=== PATIENT | female | born 1935 | race Caucasian/White ===

== ENCOUNTER 2020-12-04 15:07 | Outpatient (REF) | payer MEDICARE, SELFPAY ==
[2020-12-04 18:04] LABS: Estimated Average Glucose 91 mg/dL; Hemoglobin A1c % 4.8 %
[2020-12-04 18:09] LABS: Hemoglobin 12.4 g/dl (12.0-16.0); Mean Corpuscular HGB Conc 32.6 g/dl (31.0-35.0); Mean Corpuscular Hemoglobin 30.7 pg (27.0-33.0); Mean Corpuscular Volume 94.1 fL (80-98); Mean Platelet Volume 12.1 fL (9.4-12.3); Platelet Count 201 X10*3/uL (160-400); Red Blood Count 4.04 X10*6/uL (4.20-5.50); Red Cell Distribution Width 13.5 % (11.0-16.0); White Blood Count 6.8 X10*3/uL (4.8-10.8)
[2020-12-04 18:16] LABS: Alanine Aminotransferase 10 U/L (0-31); Albumin Level 4.1 g/dL (3.5-5.0); Alkaline Phosphatase 78 U/L (39-117); Anion Gap 10 (12-20); Aspartate Amino Transferase 15 U/L (5-31); Bilirubin Total 0.4 mg/dL (0.0-1.0); Blood Urea Nitrogen 14 mg/dL (9-16); Calcium 9.1 mg/dL (8.4-10.2); Carbon Dioxide 32 mmol/L (22-29); Chloride 105 mmol/L (96-108); Estimated Glomerular Filt Rate > 60; Glucose Random 91 mg/dL (60-115); Potassium 3.9 mmol/l (3.3-5.1); Sodium 143 mmol/L (135-145); Total Protein 6.4 g/dL (6.5-8.0)
== END 2020-12-04 15:08 | disposition home or self-care (01) ==
LOC: HO.MANLDS 15:07
PROVIDERS: PCP Internal Medicine; Visit Provider Internal Medicine
DX: I10 Essential (primary) hypertension (principal); R73.01 Impaired fasting glucose
CPT/HCPCS: 36415; 80053; 83036; 85027

== ENCOUNTER 2021-06-28 11:03 | Outpatient (REF) | payer MEDICARE, SELFPAY ==
[2021-06-28 12:45] LABS: Hematocrit 39.7 % (37-47); Hemoglobin 12.9 g/dl (12.0-16.0); Mean Corpuscular HGB Conc 32.5 g/dl (31.0-35.0); Mean Corpuscular Hemoglobin 30.4 pg (27.0-33.0); Mean Corpuscular Volume 93.4 fL (80-98); Mean Platelet Volume 11.5 fL (9.4-12.3); Platelet Count 238 X10*3/uL (160-400); Red Blood Count 4.25 X10*6/uL (4.20-5.50); Red Cell Distribution Width 13.6 % (11.0-16.0); White Blood Count 7.6 X10*3/uL (4.8-10.8)
[2021-06-28 13:09] LABS: Alanine Aminotransferase 11 U/L (0-31); Albumin Level 4.3 g/dL (3.5-5.0); Alkaline Phosphatase 84 U/L (39-117); Anion Gap 11 (12-20); Aspartate Amino Transferase 17 U/L (5-31); Bilirubin Total 0.6 mg/dL (0.0-1.0); Blood Urea Nitrogen 17 mg/dL (9-16); Calcium 9.8 mg/dL (8.4-10.2); Carbon Dioxide 30 mmol/L (22-29); Chloride 104 mmol/L (96-108); Estimated Glomerular Filt Rate > 60; Glucose Random 93 mg/dL (60-115); Potassium 4.2 mmol/L (3.3-5.1); Sodium 141 mmol/L (135-145); Total Protein 6.8 g/dL (6.5-8.0)
[2021-06-28 13:30] LABS: Thyroid Stimulating Hormone 1.78 uIU/mL (0.32-4.0); Vitamin D 25-OH Total 45.8 ng/mL (>30)
== END 2021-06-28 11:04 | disposition home or self-care (01) ==
LOC: HO.MANLDS 11:03
PROVIDERS: PCP Internal Medicine; Visit Provider Internal Medicine
DX: I10 Essential (primary) hypertension (principal)
CPT/HCPCS: 36415; 80053; 82306; 84443; 85027

== ENCOUNTER 2022-02-11 14:07 | Outpatient (REF) | payer MEDICARE, SELFPAY ==
[2022-02-11 18:16] LABS: Hematocrit 38.7 % (37.0-47.0); Hemoglobin 12.6 g/dl (12.0-16.0); Mean Corpuscular HGB Conc 32.6 g/dl (31.0-35.0); Mean Corpuscular Hemoglobin 30.1 pg (27.0-33.0); Mean Corpuscular Volume 92.6 fL (80.0-98.0); Mean Platelet Volume 11.9 fL (9.4-12.3); Platelet Count 266 X10*3/uL (160-400); Red Blood Count 4.18 X10*6/uL (4.20-5.50); Red Cell Distribution Width 13.5 % (11.0-16.0); White Blood Count 7.2 X10*3/uL (4.8-10.8)
[2022-02-11 18:34] LABS: Alanine Aminotransferase 14 U/L (0-31); Albumin Level 3.9 g/dL (3.5-5.0); Alkaline Phosphatase 72 U/L (39-117); Anion Gap 12 (12-20); Aspartate Amino Transferase 16 U/L (5-31); Bilirubin Total 0.5 mg/dL (0.0-1.0); Blood Urea Nitrogen 19 mg/dL (9-16); Calcium 9.3 mg/dL (8.4-10.2); Carbon Dioxide 29 mmol/L (22-29); Chloride 106 mmol/L (96-108); Estimated Glomerular Filt Rate > 60; Glucose Random 120 mg/dL (60-115); Potassium 4.4 mmol/L (3.3-5.1); Sodium 143 mmol/L (135-145); Total Protein 6.2 g/dL (6.5-8.0)
[2022-02-11 18:59] LABS: Thyroid Stimulating Hormone 1.68 uIU/mL (0.32-4.0)
[2022-02-13 14:20] LABS: Vitamin D 25-OH Total 52.4 ng/mL (>30)
== END 2022-02-11 14:08 | disposition home or self-care (01) ==
LOC: HO.MANLDS 14:07
PROVIDERS: PCP Internal Medicine; Visit Provider Internal Medicine
DX: I10 Essential (primary) hypertension (principal)
CPT/HCPCS: 36415; 80053; 82306; 84443; 85027

== ENCOUNTER 2022-07-23 13:00 | Outpatient (REF) | payer MEDICARE, SELFPAY ==
--- NOTE | ~2022-07-23 | XR_ITS ---
EXAMINATION: XR CHEST CLINICAL INFORMATION: Shortness of breath COMPARISON: None TECHNIQUE: 2 views of the chest were obtained. FINDINGS: Moderate cardiomegaly. Changes of congestive heart failure and interstitial pulmonary edema with moderate bilateral pleural effusions. No major zones of airspace disease grossly. No ectopic air. Biapical pleural thickening. No acute osseous abnormality. XR/XR chest 2V IMPRESSION: High-grade interstitial pulmonary edema as above.
== END 2022-07-23 13:01 | disposition home or self-care (01) ==
LOC: HO.XRAY 13:00
PROVIDERS: PCP Internal Medicine; Visit Provider Physician Assistant
DX: R06.02 Shortness of breath (principal)
CPT/HCPCS: 71046

== ENCOUNTER → 2022-08-15 08:55 | Outpatient (REF) | payer MEDICARE, SELFPAY ==
--- NOTE | 2022-08-15 09:01 | CA_ITS ---
Transthoracic Echocardiogram Patient (Last, First, Middle): Fauzia Roberto M Gender: Female Date of : 1935 Age: 87 Procedure Date: 08/15/2022 Procedure Type: Transthoracic Echocardiogram Location: OP Height: 167.64 cm Weight: 61.24 kg BSA: 1.69 m2 Heart Rate: 76 bpm BP: 125 / 60 mmHg Animal Eviscerator: ENRRIQUE Referring MD: Connie HYDE Symptoms: AFIB Study Quality: Adequate ECG Rhythm: Atrial Fibrillation Conclusions: - The left ventricular systolic function is moderately decreased. The visually estimated ejection fraction is between 30-35%. - There is moderately decreased right ventricular systolic function. - The left atrium is moderately dilated. - There is mild calcification of the aortic valve. - There is moderate mitral valve regurgitation. - Mild pulmonary hypertension is present. Findings Left Ventricle Mildly increased left ventricular cavity size. There is normal left ventricular wall thickness. The left ventricular systolic function is moderately decreased. The visually estimated ejection fraction is between 30 35%. There is moderate global hypokinesis. Diastolic function is indeterminate on the basis of available data. Right Ventricle Normal right ventricular cavity size. There is moderately decreased right ventricular systolic function. Atria The left atrium is moderately dilated. The right atrium is normal in size. Aortic Valve There is a normal trileaflet aortic valve. There is mild calcification of the aortic valve. There is no aortic valve stenosis. There is no aortic valve regurgitation. Mitral Valve There is mild anterior and posterior mitral leaflet thickening. There is mild mitral annular calcification. There is moderate mitral valve regurgitation. There is no mitral valve stenosis. Pulmonic Valve The pulmonic valve is likely normal. Tricuspid Valve Normal tricuspid valve structure. There is trace tricuspid valve regurgitation. Mild pulmonary hypertension is present. Great Vessels The asc aorta is normal in size. Venous The inferior vena cava is mildly dilated and collapses less than 50% with inspiration. Pericardium/Pleural There is a trivial pericardial effusion. Prior Study Comparison No prior study available for comparison. Measurements 2D Linear Measurements IVSd: 0.73 0.6-0.9/0.6-1.0 cm LVIDd: 5.54 3.9-5.3/4.2-5.9 cm LVIDd Index: 3.28 2.4-3.2/2.2-3.1 cm/m2 LVIDs: 3.99 2.0-3.6 cm LVPWd: 0.98 0.7-1.1 cm LA Diam: 4.20 2.7-3.8/3.0-4.0 cm LAIDs Index: 2.49 1.5-2.3 cm/m2 LV Mass: 219.00 67-162/88-224 g LV Mass Index: 129.58 43-95/49-115 g/m2 LVOT Diam: 1.90 3.0+(-)1.3 cm 2D Systolic Function EF 4C: 32.70 >55% EF 2C: 40.40 >55% EF BiP: 39.60 >55% Mitral Valve MV Pk E: 1.38 MV Decel Time: 171.00 PHT: 50.00 MVA PHT: 4.[address] [place]: 8.08 MR Vol - PW Dopp: 26.40 MR VTI: 1.65 MR ERO: 16.00 MR Alias Trav: 0.51 MR RAD: 0.50 Aortic Valve AoV Pk Trav: 0.82 AoV Mn Trav: 0.65 AoV VTI: 0.13 AoV Pk Grad: 3.00 Aov Mn Grad: 2.00 SAROJ Cont.VTI: 2.25 LVOT LVOT Pk Trav: 0.65 LVOT Mn Trav: 0.43 LVOT VTI: 0.10 LVOT Pk Grad: 2.00 LVOT Mn Grad: 1.00 LVOT Diam: 1.90 LVOT Area: 2.84 Diastolic Function MV Pk E: 1.38 Right Ventricle TAPSE (mm): 10.60 TVS' Trav: 5.87 Tricuspid Valve TR Pk Trav: 2.75 TR Pk Grad: 30.00 RA Press: 15.00 RVSP: 45.00 Great Vessels Aorta Sinus of Valsalva: 3.30 2.0-3.5 cm Ao Asc: 2.70 2.1-3.4 cm Pulmonary Valve PV Pk Trav: 0.69 Peak PV Grad: 2.00 Updated in Other Vendor System with Status of Final Viraj Lombardi MD electronically signed on 08/15/2022 2:00:24 PM with status of Final
== END ==
LOC: HO.CARD 08:55
PROVIDERS: Visit Provider Physician Assistant
DX: I48.0 Paroxysmal atrial fibrillation (principal)
CPT/HCPCS: 93306

== ENCOUNTER 2022-09-12 10:36 | Outpatient (REF) | payer MEDICARE, SELFPAY ==
[2022-09-12 11:03] LABS: MANUAL DIFF FLAG NO
[2022-09-12 11:45] LABS: Basophils Absolute Auto 0.1 X10*3/uL (0.0-0.2); Eosinophils Absolute Auto 0.2 X10*3/uL (0.0-0.4); Eosinophils Percent Auto 2.6 % (0-4); Hematocrit 39.5 % (37.0-47.0); Hemoglobin 12.6 g/dl (12.0-16.0); Imm Gran Abs Auto 0.02 X10*3/uL (0.00-0.03); Imm Gran Pct Auto 0.3 % (0.0-0.4); Lymphocytes Percent Auto 28.4 % (20-40); Mean Corpuscular HGB Conc 31.9 g/dl (31.0-35.0); Mean Corpuscular Hemoglobin 29.7 pg (27.0-33.0); Mean Corpuscular Volume 93.2 fL (80.0-98.0); Mean Platelet Volume 11.6 fL (9.4-12.3); Monocytes Absolute Auto 0.6 X10*3/uL (0.1-1.2); Monocytes Percent Auto 8.9 % (2-11); Neutrophils Absolute Auto 4.1 x10*3/uL (2.0-8.3); Neutrophils Percent Auto 58.8 % (45-73); Platelet Count 229 X10*3/uL (160-400); Red Blood Count 4.24 X10*6/uL (4.20-5.50); Red Cell Distribution Width 15.1 % (11.0-16.0)
[2022-09-12 12:26] LABS: Anion Gap 15 (12-20); Blood Urea Nitrogen 24 mg/dL (9-16); Calcium 9.5 mg/dL (8.4-10.2); Carbon Dioxide 32 mmol/L (22-29); Chloride 101 mmol/L (96-108); Estimated Glomerular Filt Rate > 60; Glucose Random 90 mg/dL (60-115); Potassium 4.2 mmol/L (3.3-5.1); Sodium 144 mmol/L (135-145)
[2022-09-15 12:33] LABS: NT-proBNP 5410 pg/mL
== END 2022-09-12 10:37 | disposition home or self-care (01) ==
LOC: HO.LAB 10:36
PROVIDERS: PCP Internal Medicine; Visit Provider Internal Medicine Cardiovascular Disease
DX: I50.42 Chronic combined systolic (congestive) and diastolic (congestive) heart failure (principal); R06.02 Shortness of breath
CPT/HCPCS: 36415; 80048; 83880; 85025

== ENCOUNTER 2024-03-15 20:57 | Inpatient (IN) | payer MEDICARE, SELFPAY ==
--- NOTE | ~2024-03-15 | XR_ITS ---
EXAMINATION: XR CHEST CLINICAL INFORMATION: Hypoxia. COMPARISON: Chest radiograph dated 07/23/2022 and 03/15/2024 TECHNIQUE: Frontal view of the chest was obtained. FINDINGS: Cardiac silhouette remains enlarged. Calcific atherosclerosis is present in the thoracic aorta. No pneumothorax or pleural effusion. Pleural parenchymal scarring is present at the lung apices bilaterally. There is enlargement of the right main pulmonary artery which be due to pulmonary arterial hypertension. No appreciable airspace consolidation. Bones are osteopenic. Mild degenerative spondylosis in the thoracic spine. Osteoarthritis is present in the acromioclavicular and glenohumeral joints. XR/XR chest 1V IMPRESSION: 1. Cardiomegaly. No acute pulmonary findings. 2. Enlarged right main pulmonary artery which can be seen with pulmonary arterial hypertension.
--- NOTE | ~2024-03-15 | XR_ITS ---
EXAMINATION: XR ABDOMEN KUB CLINICAL INDICATION: Constipation. COMPARISON: None available. TECHNIQUE: 2 AP views of the abdomen and pelvis are submitted. FINDINGS: There is a disorganized bowel gas pattern, without obstruction or ileus seen. There is gas and stool identified to the level of the rectum. The stool burden is mild, most pronounced within the rectum. No free intraperitoneal air is seen. There is no abnormal soft tissue calcification. No acute osseous abnormality is seen. There are degenerative changes of the spine. There is a left hip arthroplasty. XR/XR KUB IMPRESSION: There is a disorganized bowel gas pattern, without obstruction or ileus seen. No free intraperitoneal air is noted.
--- NOTE | ~2024-03-15 | XR_ITS ---
EXAMINATION: XR CHEST CLINICAL INFORMATION: Preop. COMPARISON: 07/23/2022 TECHNIQUE: Frontal view of the chest was obtained. FINDINGS: The cardiac silhouette is enlarged but stable. There is no focal lung consolidation or evidence for significant pleural effusions. The bony structures are osteopenic. The soft tissues are unremarkable. XR/XR chest 1V IMPRESSION: Stable enlarged cardiac silhouette. No acute cardiopulmonary process.
--- NOTE | ~2024-03-15 | XR_ITS ---
EXAMINATION: XR PELVIS CLINICAL INFORMATION: Postop COMPARISON: Previous x-ray 03/15/2024 TECHNIQUE: AP view of the pelvis. FINDINGS: There is a new left hip hemiarthroplasty in satisfactory position. No fracture or dislocation. Postoperative changes to the soft tissues. XR/XR pelvis 1-2V IMPRESSION: Satisfactory appearance of left hip hemiarthroplasty.
--- NOTE | ~2024-03-15 | XR_ITS ---
EXAMINATION: XR CHEST CLINICAL INFORMATION: Hypoxia COMPARISON: 03/21/2024 TECHNIQUE: Frontal view of the chest was obtained. FINDINGS: Lungs are clear but there is mild prominence of the right hilum and there is pleural thickening. The left lung base. No evidence of consolidation. Cardiomediastinal silhouette is unremarkable. XR/XR chest 1V IMPRESSION: Prominence of right hilum and pleural-based thickening on the left.
--- NOTE | ~2024-03-15 | XR_ITS ---
EXAMINATION: XR CHEST CLINICAL INFORMATION: Hypoxia COMPARISON: Chest radiograph done earlier on the same date TECHNIQUE: Frontal view of the chest was obtained. FINDINGS: The lungs are adequately expanded. Central vascular congestion and mild interstitial prominence is again noted. Hazy left basilar opacities with mild blunting of the left costophrenic angle. No right-sided pleural effusion. No pneumothorax. Stable cardiac silhouette. Aortic calcifications. Degenerative changes of the thoracic spine. XR/XR chest 1V IMPRESSION: Central vascular congestion and mild interstitial prominence which may represent mild edema. Hazy left basilar opacities which may be secondary to atelectasis or infectious/inflammatory etiology. Probable trace left pleural effusion.
--- NOTE | ~2024-03-15 | CT_ITS ---
EXAMINATION: CT HEAD WITHOUT CONTRAST CT CERVICAL SPINE WITHOUT CONTRAST CLINICAL INFORMATION: Fall. Pain. COMPARISON: None available. TECHNIQUE: Contiguous axial imaging was performed through the head and cervical spine without intravenous administration of contrast. Sagittal and coronal reformatted images also obtained. This CT examination was performed using dose optimization techniques as appropriate, variously including the following: *Automated exposure control *Adjustment of mA and/or kV according to patient size (this includes techniques or standardized protocols for targeted exams where dose is matched to indication/reason for exam; i.e. extremities or head) *Use of iterative reconstruction technique DLP: 920 mGy-cm FINDINGS: There is cerebral volume loss with prominence of the lateral and the third ventricles. The cortical sulci are widened appropriately. The fourth ventricle and basal cisterns are normally outlined. There is mild to moderate bilateral periventricular and central white matter diminished attenuation. There is right temporal encephalomalacia. There is no acute territorial defect, hemorrhage or midline shift. The extra-axial spaces are unremarkable. Calvarium: Intact. Maxillofacial sinuses and mastoids: Clear as visualized. Cervical spine: The alignment is within normal limits. There is diffuse cervical disc degenerative change with loss of disc space, endplate change and posterior osteophytes associated with diffuse cfwv-xb-thdgjluv facet osteoarthritic hypertrophic change with multilevel mild spinal canal and multilevel umpw-rx-iridakxa neuroforaminal narrowing. The bony structures are osteopenic. No fracture is seen. The soft tissues are unremarkable. The visualized upper lung shaw are clear. CT/CT cervical spine wo IV con IMPRESSION: CT HEAD: 1. No acute intracranial process seen. 2. Age-related cerebral volume loss with chronic small vessel ischemic changes. CT CERVICAL SPINE: No acute fracture or malalignment. There is diffuse osteopenia.
--- NOTE | ~2024-03-15 | XR_ITS ---
EXAMINATION: XR PELVIS CLINICAL INFORMATION: Status post left hip replacement COMPARISON: 03/18/2024 TECHNIQUE: AP view of the pelvis. FINDINGS: A left total hip prosthesis is present prosthetic components are in good position. No evidence of fracture. Appearances are stable when compared to the immediate postoperative study from 03/18/2024 with surgical zackery are no longer present and subcutaneous air has resolved. XR/XR pelvis 1-2V IMPRESSION: Stable appearance of left total hip prosthesis.
--- NOTE | ~2024-03-15 | XR_ITS ---
EXAMINATION: XR SHOULDER, LEFT CLINICAL INFORMATION: Fall. Left shoulder pain. COMPARISON: None available. TECHNIQUE: AP, Grashey, and scapular Y views of the left shoulder. FINDINGS: No acute fracture or dislocation. No glenohumeral joint space narrowing or marginal osteophytes. Mild acromioclavicular joint space narrowing with small marginal osteophytes. No osseous erosion. No abnormal soft tissue calcification. XR/XR shoulder LT min 2V IMPRESSION: 1. No acute fracture or dislocation. 2. Mild acromioclavicular osteoarthritis.
--- NOTE | ~2024-03-15 | CT_ITS ---
EXAMINATION: CT HEAD WITHOUT CONTRAST CT CERVICAL SPINE WITHOUT CONTRAST CLINICAL INFORMATION: Fall. Pain. COMPARISON: None available. TECHNIQUE: Contiguous axial imaging was performed through the head and cervical spine without intravenous administration of contrast. Sagittal and coronal reformatted images also obtained. This CT examination was performed using dose optimization techniques as appropriate, variously including the following: *Automated exposure control *Adjustment of mA and/or kV according to patient size (this includes techniques or standardized protocols for targeted exams where dose is matched to indication/reason for exam; i.e. extremities or head) *Use of iterative reconstruction technique DLP: 920 mGy-cm FINDINGS: There is cerebral volume loss with prominence of the lateral and the third ventricles. The cortical sulci are widened appropriately. The fourth ventricle and basal cisterns are normally outlined. There is mild to moderate bilateral periventricular and central white matter diminished attenuation. There is right temporal encephalomalacia. There is no acute territorial defect, hemorrhage or midline shift. The extra-axial spaces are unremarkable. Calvarium: Intact. Maxillofacial sinuses and mastoids: Clear as visualized. Cervical spine: The alignment is within normal limits. There is diffuse cervical disc degenerative change with loss of disc space, endplate change and posterior osteophytes associated with diffuse poaj-ww-nlogbocs facet osteoarthritic hypertrophic change with multilevel mild spinal canal and multilevel ybbn-mo-vxpjcekk neuroforaminal narrowing. The bony structures are osteopenic. No fracture is seen. The soft tissues are unremarkable. The visualized upper lung shaw are clear. CT/CT head/brain wo IV con IMPRESSION: CT HEAD: 1. No acute intracranial process seen. 2. Age-related cerebral volume loss with chronic small vessel ischemic changes. CT CERVICAL SPINE: No acute fracture or malalignment. There is diffuse osteopenia.
--- NOTE | ~2024-03-15 | XR_ITS ---
EXAMINATION: XR FEMUR, LEFT CLINICAL INFORMATION: Trauma. Pain. COMPARISON: None available. TECHNIQUE: AP and lateral views of the left femur were obtained. FINDINGS: The bones and soft tissues are normal. No fracture. No osseous lesions. XR/XR femur LT 2V IMPRESSION: No significant abnormality identified.
--- NOTE | ~2024-03-15 | XR_ITS ---
EXAMINATION: XR HIP, LEFT CLINICAL INFORMATION: Trauma. Pain. COMPARISON: None available. TECHNIQUE: Two views of the left hip. FINDINGS: The bony structures are osteopenic. There is a displaced left femoral neck fracture. The joint spaces are fairly well maintained for patient age. The soft tissues are unremarkable. XR/XR hip LT w PEL1V IMPRESSION: Displaced left femoral neck fracture.
[2024-03-15 21:08] VITALS: BP 142/80; PULSE 64; O2SAT 94
[2024-03-15 21:10] VITALS: BP 171/82; PULSE 88; RESP 18; TEMP 36.8; O2SAT 96; BMI 21.8
[2024-03-15 21:13] VITALS: BP 171/82; PULSE 78; RESP 20; TEMP 36.4; O2SAT 97
--- NOTE | 2024-03-15 21:16 | ECG_ITS ---
Test Reason : FALL Blood Pressure : / mmHG Vent. Rate : 078 BPM Atrial Rate : 000 BPM P-R Int : 000 ms QRS Dur : 092 ms QT Int : 362 ms P-R-T Axes : 000 036 238 degrees QTc Int : 412 ms Poor data quality Possible Atrial fibrillation with premature ventricular or aberrantly conducted complexes ST & T wave abnormality, consider inferior ischemia ST & T wave abnormality, consider anterolateral ischemia Abnormal ECG When compared with ECG of 04-AUG-2011 11:36, Possible Atrial fibrillation has replaced Sinus rhythm ST now depressed in Lateral leads T wave inversion now evident in Inferior leads T wave inversion now evident in Anterolateral leads Referred By: Jessie Reyes Electronically Signed By:KATHY AHUJA MD
[2024-03-15 21:40] LABS: MANUAL DIFF FLAG NO
[2024-03-15 21:41] LABS: Basophils Percent Auto 0.2 % (0-2); Hematocrit 44.6 % (37.0-47.0); Hemoglobin 14.8 g/dl (12.0-16.0); Imm Gran Abs Auto 0.07 X10*3/uL (0.00-0.03); Imm Gran Pct Auto 0.6 % (0.0-0.4); Lymphocytes Absolute Auto 1.3 X10*3/uL (1.2-4.9); Lymphocytes Percent Auto 10.7 % (20-40); Mean Corpuscular HGB Conc 33.2 g/dl (31.0-35.0); Mean Corpuscular Hemoglobin 30.6 pg (27.0-33.0); Mean Corpuscular Volume 92.1 fL (80.0-98.0); Mean Platelet Volume 10.7 fL (9.4-12.3); Monocytes Absolute Auto 0.8 X10*3/uL (0.1-1.2); Monocytes Percent Auto 6.2 % (2-11); Neutrophils Percent Auto 82.3 % (45-73); Platelet Count 316 X10*3/uL (160-400); Red Blood Count 4.84 X10*6/uL (4.20-5.50); White Blood Count 12.2 X10*3/uL (4.8-10.8)
--- NOTE | 2024-03-15 21:45 | PC.NURSE ---
Unable to straight catheter pt due to positioning, existing fx. Purewik in place to capture urine for sample. aware.
[2024-03-15 21:47] LABS: INTERNATIONAL NORM RATIO 1.3 (0.9-1.1); Prothrombin Time 15.3 SEC (11.1-13.3)
--- NOTE | 2024-03-15 21:48 | ED.FALL ---
HPI - Fall General Chief Complaint: Fall Stated Complaint: left hip fx from witnessed fall, [facility] [place], [place] requested Time Seen by Provider: 03/15/24 21:08 Source: patient, family and EMS Mode of arrival: EMS History of Present Illness HPI Narrative: 88-year-old female who suffers from dementia, atrial fibrillation and is currently on chronic anticoagulation is brought in by EMS from [facility] after a fall from this morning, follow-up x-rays from the facility demonstrated a mid left femoral fracture but they did not transfer the patient to the emergency room until this evening. Patient does report pain in the left thigh area otherwise exam is benign in nature. Related Data Allergies Allergy/AdvReac Type Severity Reaction Status Date / Time ammonia [Ammonia] Allergy Severe BURNING Verified 03/15/24 21:22 SENSATION enalaprilat [From Vasotec] Allergy Severe CHOKING Verified 03/15/24 21:22 hydrochlorothiazide Allergy Severe CHOKING Verified 03/15/24 21:22 [From Hyzaar] FEELING losartan [From Cozaar] Allergy Severe CHOKING Verified 03/15/24 21:22 FEELING Review of Systems Review of Systems: Pertinent positives and negatives as stated in HPI [facility] Past Medical History Source: nursing notes reviewed Social History Social History Smoked in Last 30 Days: No Use of substances other than those prescribed or required for medical reasons: No Advance Directives: No Advance Directives Information Provided: No Do you have a plan to hurt others: No Plan Physical Exam Vital Signs: Vital Signs: Last Vital Signs Temp 97.5 F 03/15/24 21:13 Pulse 78 03/15/24 21:13 Resp 20 03/15/24 21:13 BP 171/82 H 03/15/24 21:13 Pulse Ox 97 03/15/24 21:13 O2 Del Method Nasal Cannula 03/15/24 21:13 O2 Flow Rate 2 03/15/24 21:13 Oxygen Flow Rate 2 03/15/24 21:10 BMI result Body Mass Index 21.8 VITAL SIGNS: Reviewed. GENERAL: Well developed, well nourished, in no acute distress. HEAD: Normocephalic/atraumatic EYES: PERRLA, EOMI EARS: Ext canals without abnormality NOSE: Nares patent bilateral OROPHARYNX: no oral lesions noted, posterior pharynx clear NECK: Patient refused C-collar, there is no noted midline cervical spine tenderness to palpation or step-offs noted LUNGS: Normal breath sounds. No adventitious sounds or accessory muscle use. SpO2<97>; CHEST WALL: There is no crepitus, tenderness to palpation or deformities noted CARDIOVASCULAR: Regular rate and rhythm without noted murmurs, no JVD or lower extremity edema. ABDOMEN: Soft, non-tender, non-distended with bowel sounds. PELVIS: Stable, nontender MUSCULOSKELETAL: No tenderness, deformities, or effusions noted on gross inspection. EXTREMITIES: No cyanosis, clubbing or edema. LLE: Obvious deformity to mid-distal femur, palpable DP/PT, warm foot with good capillary refill SKIN: Inspection of the skin reveals no rashes NEUROLOGIC: Alert and oriented x 4. Strength and sensation to light touch were grossly intact x 4. Medical Decision Making Medical Decision Making [facility] Narrative: 88-year-old female with history and clinical presentation of fall on chronic anticoagulation since this morning, no focal deficits appreciated but will scan head and neck, highly suspect left femoral fracture, patient is a full code and neurovascular is intact. The reviewed all investigations and hematologic indices demonstrate a leukocytosis that is felt to be not infectious and is likely stress related at this time, there is no anemia or thrombocytopenia. Coagulation studies are mildly elevated reflective of chronic anticoagulation. Chemistry indices are negative for SHABNAM/electrolyte or liver enzyme derangements. CT of the head without evidence of intracranial hemorrhage or mass effect and cervical spine does not demonstrate any fracture or subluxation. Chest x-ray does not demonstrate any infiltrative venous congestion otherwise my interpretation is in agreement with radiology's impression. Femur x-ray is negative for evidence of fracture or dislocation. Hip/pelvis x-ray demonstrates displaced left femoral neck fracture. 2353: I discussed case with orthopedics who recommends holding Eliquis and they will see the patient in the morning. 2357: I discussed the case with inpatient hospitalist who accepts admission. Differential Diagnosis Differential Diagnoses: The differential diagnosis associated with the presentation includes Please see the discussion above Admission/Observation Consideration of admission/observation: Escalation of care including admission/observation considered Please see the discussion above Consult Healthcare Provider Management of the patient was discussed with: Hospitalist and Executive Search Consultant Please see the discussion above Lab Data [facility] Lab Attestation statement: I reviewed the patient's lab results. Please see the discussion above 03/15/24 21:36 03/15/24 21:36 Labs: Lab Results 03/15/24 03/15/24 Range/Units 21:36 21:37 WBC 12.2 H (4.8-10.8) X10*3/uL RBC 4.84 D (4.20-5.50) X10*6/uL Hgb 14.8 D (12.0-16.0) g/dl Hct 44.6 (37.0-47.0) % MCV 92.1 (80.0-98.0) fL MCH 30.6 (27.0-33.0) pg MCHC 33.2 (31.0-35.0) g/dl RDW 14.0 (11.0-16.0) % Plt Count 316 D (160-400) X10*3/uL MPV 10.7 (9.4-12.3) fL Immature Gran % (Auto) 0.6 H (0.0-0.4) % Neut % (Auto) 82.3 H (45-73) % Lymph % (Auto) 10.7 L (20-40) % [place] % (Auto) 6.2 (2-11) % Eos % (Auto) 0.0 (0-4) % Baso % (Auto) 0.2 (0-2) % Lymph # (Auto) 1.3 (1.2-4.9) X10*3/uL [place] # (Auto) 0.8 (0.1-1.2) X10*3/uL Eos # (Auto) 0.0 (0.0-0.4) X10*3/uL Baso # (Auto) 0.0 (0.0-0.2) X10*3/uL Abs Immat Gran (auto) 0.07 H (0.00-0.03) X10*3/uL Absolute Neuts (auto) 10.0 H (2.0-8.3) x10*3/uL Absolute Nucleated RBC 0.000 (0.0-0.012) X10*3/uL Nucleated RBC % (auto) 0.0 (0.0-0.2) /100WBC PT 15.3 H (11.1-13.3) SEC INR 1.3 H (0.9-1.1) Sodium 144 (135-145) mmol/L Potassium 4.6 D (3.3-5.1) mmol/L Chloride 102 (96-108) mmol/L Carbon Dioxide 25 (22-29) mmol/L Anion Gap 22 H (12-20) BUN 28 H (9-16) mg/dL Creatinine 0.88 (0.5-1.4) mg/dL Estim Creat Clear Calc 42.9 Estimated GFR > 60 Random Glucose 117 H (60-115) mg/dL Calcium 10.0 D (8.4-10.2) mg/dL Total Bilirubin 0.7 (0.0-1.0) mg/dL AST 31 (5-31) U/L ALT 21 (0-31) U/L Alkaline Phosphatase 100 (39-117) U/L Total Protein 7.6 (6.5-8.0) g/dL Albumin 4.2 (3.5-5.0) g/dL Blood Type O Positive Antibody Screen NEGATIVE Independent Interpretation I performed an independent interpretation of an: EKG Interpretation: Atrial fibrillation with occasional PVCs, HR-78, QRS/QTC is within normal limits EKG is significantly different from comparison EKG that is available from when he 11 which does not demonstrate any atrial fibrillation but given the fact that patient is on chronic anticoagulation I do not suspect that this is a new diagnosis. Radiology Impression Discussion of test interpretation with radiology: I have reviewed the radiologist's reading. Radiologist Impression: Please see the discussion above External Record Review External record reviewed: Outpatient record, Prior outpatient labs and Prior outpatient radiology Chronic Conditions Patient?s care impacted by: Hypertension AFib, chronic anticoagulant Critical Care Time Critical Care Time Critical Care Time: Yes Total Critical Care Time: 60 Attestation: I personally attest to this time spent taking care of the patient. Discharge Plan Discharge Clinical Impression: Closed fracture of neck of left femur, Chronic anticoagulation, Atrial fibrillation Patient Disposition: Admitted As Inpatient Print Language: Rw[place]an
[2024-03-15 21:59] LABS: Alanine Aminotransferase 21 U/L (0-31); Albumin Level 4.2 g/dL (3.5-5.0); Alkaline Phosphatase 100 U/L (39-117); Anion Gap 22 (12-20); Aspartate Amino Transferase 31 U/L (5-31); Bilirubin Total 0.7 mg/dL (0.0-1.0); Blood Urea Nitrogen 28 mg/dL (9-16); Carbon Dioxide 25 mmol/L (22-29); Chloride 102 mmol/L (96-108); Creatinine Clr Calc Pharmacy 42.9; Estimated Glomerular Filt Rate > 60; Glucose Random 117 mg/dL (60-115); Potassium 4.6 mmol/L (3.3-5.1); Sodium 144 mmol/L (135-145); Total Protein 7.6 g/dL (6.5-8.0)
[2024-03-16 00:24] LABS: Appearance Urine Clear; Color Urine Yellow; Glucose Urine UA >=1000 mg/dL (Negative); Leukocyte Esterase Urine Negative (Negative); Nitrite Urine Negative (Negative); Specific Gravity - Urine 1.015 (1.005-1.025); UMIC TRIGGER UACC YES; Urine Blood Negative (Negative); Urine Ketones 15 mg/dL (Negative); Urine Protein Negative (Neg-Trace)
[2024-03-16 00:29] LABS: Bacteria Urine None Seen (None Seen); RBC Urine 0-2 /HPF (0-2); Squamous Epithelial Cell Urine 0-2 /HPF (0-2); WBC Urine 0-5 /HPF (0-5)
--- NOTE | 2024-03-16 02:23 | PM.IMHP ---
History of Present Illness Date of Service: 03/16/24 Attending physician on admission: Yolanda Walton Chief Complaint: Hip pain Fauzia Roberto is a 88 years old woman with past medical history significant for atrial fibrillation on chronic anticoagulation with Eliquis, dementia, essential hypertension and HFrEF (30-35%) was brought to the emergency department via EMS from [facility] after she sustained a fall. It seems like the patient fell this morning after standing in bathroom to pull up pants. According to ED triage note patient is confused at baseline due to dementia. Patient was unable to provide a reliable HPI due to underlying significant dementia. In the ED the patient was found to have to have stable vital signs. Last blood pressure is 171/82. Blood workup is remarkable for leukocytosis of 12.2. Hemoglobin and platelets are normal. There are no significant electrolyte imbalances. BUN is 28 and creatinine 0.88. LFTs are normal. INR is 1.3. UA showed no evidence of urinary tract infection. CXR is negative. Hip and pelvic x-ray showed displaced left femoral neck fracture. According to ED provider case has been discussed with orthopedic service. ED tx: None. [facility] Medical History (Updated 03/16/24 @ 11:38 by Naresh Ardon MD) Dementia Essential hypertension Social History Smoked in Last 30 Days: No Use of substances other than those prescribed or required for medical reasons: No Advance Directives: No Advance Directives Information Provided: No Do you have a plan to hurt others: No Plan service: No Meds Allergies Allergy/AdvReac Type Severity Reaction Status Date / Time ammonia [Ammonia] Allergy Severe BURNING Verified 03/15/24 21:22 SENSATION enalaprilat [From Vasotec] Allergy Severe CHOKING Verified 03/15/24 21:22 hydrochlorothiazide Allergy Severe CHOKING Verified 03/15/24 21:22 [From Hyzaar] FEELING losartan [From Cozaar] Allergy Severe CHOKING Verified 03/15/24 21:22 FEELING Active Medications: Current Medications Acetaminophen (Acetaminophen 325 Mg Tablet) 975 mg PO Q6H PRN PRN Reason: Pain, Mild (Pain Scale 1-3) Lactated Ringer's (Lr) 1,000 mls @ 80 mls/hr IVCONT .[id number] TERRELL Pantoprazole Sodium (Pantoprazole Sodium 40 Mg/10 Ml Vial) 40 mg IVPUSH DAILY [facility] Sodium Chloride (0.9 % Sodium Chloride Flush 3 Ml Syringe) 3 ml IVFLUSH QSHIFT [facility] Home Medications ?Medication ?Instructions ?Recorded ?Confirmed ?Last Taken ?Type apixaban 2.5 mg tablet (Eliquis) 2.5 mg PO BID 03/16/24 03/16/24 Unknown History divalproex 125 mg capsule,delayed 125 mg PO TID 03/16/24 03/16/24 Unknown History release sprinkle fluoxetine 20 mg tablet 20 mg PO DAILY 03/16/24 03/16/24 Unknown History furosemide 40 mg tablet 40 mg PO DAILY PRN Edema 03/16/24 03/16/24 Unknown History irbesartan 300 mg tablet 300 mg PO DAILY 03/16/24 03/16/24 Unknown History memantine 5 mg tablet 5 mg PO DAILY 03/16/24 03/16/24 Unknown History metoprolol succinate 25 mg 12.5 mg PO DAILY 03/16/24 03/16/24 Unknown History tablet,extended release 24 hr mirtazapine 15 mg tablet 7.5 mg PO BEDTIME 03/16/24 03/16/24 Unknown History olanzapine 5 mg tablet 7.5 mg PO BEDTIME 03/16/24 03/16/24 Unknown History potassium chloride 20 mEq 20 meq PO BID 03/16/24 03/16/24 Unknown History tablet,extended release(part/cryst) Physical Exam Vital Signs and Narrative: Vital Signs: Last Vital Signs Temp 97.5 F 03/15/24 21:13 Pulse 78 03/15/24 21:13 Resp 20 03/15/24 21:13 BP 171/82 H 03/15/24 21:13 Pulse Ox 97 03/15/24 21:13 O2 Del Method Nasal Cannula 03/15/24 21:13 O2 Flow Rate 2 03/15/24 21:13 Oxygen Flow Rate 2 03/15/24 21:10 BMI result Body Mass Index 21.8 Constitutional - Awake and Alert, No apparent distress. Cooperative. Pleasant. Confused at times. HEENT - Pupils equally round. Normal sclerae. Moist oral mucosa. Heart - Irregular rhythm. Lungs - Normal lung expansion, Normal respiratory effort, No respiratory distress, CTA bilaterally Abdomen - NT / ND; +BS; No rebound or guarding Extremities - Left hip tenderness and limited ROM, left leg laying external rotation and shorter than right one. Distal pulses 2+ bilaterally Musculoskeletal - Normal inspection, normal ROM Skin - Warm/Dry Neurological - Alert & oriented only to person. Psychological - Confused. No agitation. Results Labs 03/16/24 04:27 03/16/24 04:27 Labs: Laboratory Results - last 24 hr 03/15/24 03/15/24 03/16/24 21:36 21:37 00:19 MCV 92.1 MCH 30.6 MCHC 33.2 RDW 14.0 Plt Count 316 D MPV 10.7 Immature Gran % (Auto) 0.6 H Neut % (Auto) 82.3 H Lymph % (Auto) 10.7 L [place] % (Auto) 6.2 Eos % (Auto) 0.0 Baso % (Auto) 0.2 Lymph # (Auto) 1.3 [place] # (Auto) 0.8 Eos # (Auto) 0.0 Baso # (Auto) 0.0 Abs Immat Gran (auto) 0.07 H Absolute Neuts (auto) 10.0 H Absolute Nucleated RBC 0.000 Nucleated RBC % (auto) 0.0 PT 15.3 H INR 1.3 H Anion Gap 22 H Estim Creat Clear Calc 42.9 Estimated GFR > 60 Random Glucose 117 H Calcium 10.0 D Total Bilirubin 0.7 AST 31 ALT 21 Alkaline Phosphatase 100 Total Protein 7.6 Albumin 4.2 Urine Color Yellow Urine Appearance Clear Urine pH 5.0 Ur Specific [place] 1.015 Urine Protein Negative Urine Glucose (UA) >=1000 H Urine Ketones 15 Urine Blood Negative Urine Nitrite Negative Ur Leukocyte Esterase Negative Urine RBC 0-2 Urine WBC 0-5 Ur Squamous Epith Cells 0-2 Urine Bacteria None Seen Hyaline Casts 3-5 Blood Type O Positive Antibody Screen NEGATIVE Imaging Radiologist's Impressions: Impressions Cervical Spine CT 03/15/24 22:55 IMPRESSION: CT HEAD: 1. No acute intracranial process seen. 2. Age-related cerebral volume loss with chronic small vessel ischemic changes. CT CERVICAL SPINE: No acute fracture or malalignment. There is diffuse osteopenia. Head CT 03/15/24 22:55 IMPRESSION: CT HEAD: 1. No acute intracranial process seen. 2. Age-related cerebral volume loss with chronic small vessel ischemic changes. CT CERVICAL SPINE: No acute fracture or malalignment. There is diffuse osteopenia. Chest X-Ray 03/15/24 23:05 IMPRESSION: Stable enlarged cardiac silhouette. No acute cardiopulmonary process. Femur X-Ray 03/15/24 23:05 IMPRESSION: No significant abnormality identified. Hip/Pelvis X-Ray 03/15/24 23:05 IMPRESSION: Displaced left femoral neck fracture. Assessment and Plan (1) Atrial fibrillation: Qualifiers: Atrial fibrillation type: unspecified chronic Qualified Code(s): I48.20 - Chronic atrial fibrillation, unspecified Status: Acute (2) Closed fracture of neck of left femur: Qualifiers: Encounter type: initial encounter Qualified Code(s): S72.002A - Fracture of unspecified part of neck of left femur, initial encounter for closed fracture Status: Acute (3) Essential hypertension: Status: Acute (4) Dementia: Qualifiers: Dementia behavioral or psychological symptom: unspecified whether behavioral, psychotic, or mood disturbance or anxiety Dementia severity: unspecified severity Dementia type: unspecified type Qualified Code(s): F03.90 - Unspecified dementia, unspecified severity, without behavioral disturbance, psychotic disturbance, mood disturbance, and anxiety Status: Acute Plan Fauzia Roberto is a 88 years old woman admitted with: Left femoral neck fracture, displaced + close. Admit to hospitalist service. Keep NPO. Gentle hydration (low EF) Pain control with acetaminophen as needed. Orthopedic surgery consult. RCRI score = 2 (10% perioperative cardiac events). Cardiology consult for clearance. Atrial fibrillation, rate controlled. Eliquis on hold -surgery planned. Telemetry. Essential hypertension. Continue metoprolol. Irbesartan on hold. Dementia. Continue memantine and olanzapine. Patient is high risk for delirium post surgery. HFrEF. Not decompensated at this time. Code status: DVT prophylaxis: SCDs Patient will need hospitalization for at least 2 midnights for left femoral neck fracture management with possible invasive procedure. Quality Stroke Does the patient have a stroke diagnosis?: No VTE Prior VTE?: No VTE Risk Level:: Medical - moderate - high VTE Device Contraindication: N/A - Device Ordered VTE Drug Contraindication: N/A - Med Ordered
[2024-03-16] MEDS: Lactated Ringers 1,000 ML 60 ML IVCONT (02:46)
[2024-03-16 04:44] VITALS: BP 117/79; PULSE 84; RESP 17; TEMP 36.4; O2SAT 95
[2024-03-16 05:31] LABS: Hematocrit 41.5 % (37.0-47.0); Hemoglobin 13.7 g/dl (12.0-16.0); Mean Corpuscular Hemoglobin 30.9 pg (27.0-33.0); Mean Corpuscular Volume 93.7 fL (80.0-98.0); Mean Platelet Volume 11.8 fL (9.4-12.3); Platelet Count 322 X10*3/uL (160-400); Red Blood Count 4.43 X10*6/uL (4.20-5.50); Red Cell Distribution Width 13.9 % (11.0-16.0); White Blood Count 14.7 X10*3/uL (4.8-10.8)
[2024-03-16 05:50] LABS: B Type Natriuretic Peptide 1269 pg/mL (<100)
[2024-03-16 05:52] LABS: Troponin-I High Sensitivity 36.1 ng/L (<3.5-17.0)
[2024-03-16 05:54] LABS: Alanine Aminotransferase 16 U/L (0-31); Albumin Level 3.9 g/dL (3.5-5.0); Alkaline Phosphatase 95 U/L (39-117); Anion Gap 22 (12-20); Aspartate Amino Transferase 28 U/L (5-31); Bilirubin Total 0.7 mg/dL (0.0-1.0); Blood Urea Nitrogen 30 mg/dL (9-16); Calcium 9.8 mg/dL (8.4-10.2); Carbon Dioxide 21 mmol/L (22-29); Chloride 103 mmol/L (96-108); Estimated Glomerular Filt Rate > 60; Glucose Random 101 mg/dL (60-115); Potassium 3.9 mmol/L (3.3-5.1); Sodium 142 mmol/L (135-145); Total Protein 6.9 g/dL (6.5-8.0)
--- NOTE | 2024-03-16 07:55 | P.CONOP_ITS ---
History of Present Illness HPI Consult date: 03/16/24 Chief complaint: Hip fracture Narrative: Ms. Langston is an 88 yo female who has baseline dementia, HPI obtained from the ED note. PMH significant for dementia and a.fib on eliquis as well as HTN. She reportedly took a fall at [facility] yesterday morning. She had a portable x- ray done at the facility and that evening was transported to the ED after she was found to have a left hip fracture. Repeat x-rays int he ED revealed a femoral neck fracture of the left hip. The patient was admitted to the medical service with orthopedic consult. Review of Systems 2 Review of Systems: Yes Unobtainable due to mental status PMFSH Past Medical History Medical History (Updated 03/16/24 @ 11:38 by Naresh Ardon MD) Dementia Essential hypertension Social History Social History Smoked in Last 30 Days: No Use of substances other than those prescribed or required for medical reasons: No Advance Directives: No Advance Directives Information Provided: No Do you have a plan to hurt others: No Plan service: No Meds Allergies Allergy/AdvReac Type Severity Reaction Status Date / Time ammonia [Ammonia] Allergy Severe BURNING Verified 03/15/24 21:22 SENSATION enalaprilat [From Vasotec] Allergy Severe CHOKING Verified 03/15/24 21:22 hydrochlorothiazide Allergy Severe CHOKING Verified 03/15/24 21:22 [From Hyzaar] FEELING losartan [From Cozaar] Allergy Severe CHOKING Verified 03/15/24 21:22 FEELING Active Medications: Current Medications Acetaminophen (Acetaminophen 325 Mg Tablet) 975 mg PO Q6H PRN PRN Reason: Pain, Moderate(Pain Scale 4-6) Lactated Ringer's (Lr) 1,000 mls @ 60 mls/hr IVCONT .[id number] TERRELL Stop: 03/16/24 08:59 Last Admin: 03/16/24 02:46 Dose: 60 mls/hr Pantoprazole Sodium (Pantoprazole Sodium 40 Mg/10 Ml Vial) 40 mg IVPUSH DAILY TERRELL Sodium Chloride (0.9 % Sodium Chloride Flush 3 Ml Syringe) 3 ml IVFLUSH QSHIFT TERRELL Last Admin: 03/16/24 07:49 Dose: Not Given Home Medications ?Medication ?Instructions ?Recorded ?Confirmed ?Last Taken ?Type apixaban 2.5 mg tablet (Eliquis) 2.5 mg PO BID 03/16/24 03/16/24 Unknown History divalproex 125 mg capsule,delayed 125 mg PO TID 03/16/24 03/16/24 Unknown History release sprinkle fluoxetine 20 mg tablet 20 mg PO DAILY 03/16/24 03/16/24 Unknown History furosemide 40 mg tablet 40 mg PO DAILY PRN Edema 03/16/24 03/16/24 Unknown History irbesartan 300 mg tablet 300 mg PO DAILY 03/16/24 03/16/24 Unknown History memantine 5 mg tablet 5 mg PO DAILY 03/16/24 03/16/24 Unknown History metoprolol succinate 25 mg 12.5 mg PO DAILY 03/16/24 03/16/24 Unknown History tablet,extended release 24 hr mirtazapine 15 mg tablet 7.5 mg PO BEDTIME 03/16/24 03/16/24 Unknown History olanzapine 5 mg tablet 7.5 mg PO BEDTIME 03/16/24 03/16/24 Unknown History potassium chloride 20 mEq 20 meq PO BID 03/16/24 03/16/24 Unknown History tablet,extended release(part/cryst) Physical Exam 2 Vital Signs: Vital Signs: Last Vital Signs Temp 97.5 F 03/16/24 04:44 Pulse 84 03/16/24 04:44 Resp 17 03/16/24 04:44 BP 117/79 03/16/24 04:44 Pulse Ox 95 03/16/24 04:44 O2 Del Method Room Air 03/16/24 04:44 O2 Flow Rate 2 03/15/24 21:13 Oxygen Flow Rate 2 03/15/24 21:10 BMI result Body Mass Index 21.8 Const: General: cooperative, healthy appearing and no acute distress Resp: Effort & Inspection: normal respiratory effort and able to speak in complete sentences Cardio: Rate: regular rate Peripheral pulses: Peripheral pulses 2+ throughout GI: Palpation (GI): Soft to palpation Skin: Lesions: no lesions Rashes: no rashes Extrem: Other: LLE is shortened and externally rotated. Able to dorsi/plantar flex. Results Labs 03/16/24 04:27 03/16/24 04:27 Labs: Abnormal lab results 03/15/24 03/16/24 03/16/24 Range/Units 21:36 00:19 04:27 WBC 12.2 H 14.7 H (4.8-10.8) X10*3/uL Immature Gran % (Auto) 0.6 H (0.0-0.4) % Neut % (Auto) 82.3 H (45-73) % Lymph % (Auto) 10.7 L (20-40) % Abs Immat Gran (auto) 0.07 H (0.00-0.03) X10*3/uL Absolute Neuts (auto) 10.0 H (2.0-8.3) x10*3/uL PT 15.3 H (11.1-13.3) SEC INR 1.3 H (0.9-1.1) Carbon Dioxide 21 L (22-29) mmol/L Anion Gap 22 H 22 H (12-20) BUN 28 H 30 H (9-16) mg/dL Random Glucose 117 H (60-115) mg/dL Troponin I High Sens 36.1 H (<3.5-17.0) ng/L B-Natriuretic Peptide 1269 H (<100) pg/mL Urine Glucose (UA) >=1000 H (Negative) mg/dL H & H 24 03/16/24 Range/Units 21:36 04:27 Hgb 14.8 D 13.7 (12.0-16.0) g/dl Hct 44.6 41.5 (37.0-47.0) % Coagulation 03/15/24 Range/Units 21:36 INR 1.3 H (0.9-1.1) All other labs normal. Assessment and Plan (1) Dementia: Qualifiers: Dementia behavioral or psychological symptom: unspecified whether behavioral, psychotic, or mood disturbance or anxiety Dementia severity: u nspecified severity Dementia type: unspecified type Qualified Code(s): F03.90 - Unspecified dementia, unspecified severity, without behavioral disturbance, psychotic disturbance, mood disturbance, and anxiety Status: Acute (2) Atrial fibrillation: Qualifiers: Atrial fibrillation type: unspecified chronic Qualified Code(s): I48.20 - Chronic atrial fibrillation, unspecified Status: Acute (3) Closed fracture of neck of left femur: Qualifiers: Encounter type: initial encounter Qualified Code(s): S72.002A - Fracture of unspecified part of neck of left femur, initial encounter for closed fracture Status: Acute Plan Spoke with Son Marvin this morning, . He will come to the ED later this morning to discuss in person what the next steps should be. I discussed conservative vs surgical intervention. Will discuss more and update note appropriately once a decision as been reached on how to proceed with patient's care. Dr. Watkins spoke with family at bedside, they would like a risk assessment to be performed by the medicine team before deciding surgical vs. conservative treatment. Procedures Date of Service Date of Service: 03/16/24
--- NOTE | 2024-03-16 09:39 | PHA.MEDREC ---
Pharmacy Consult ? Medication Reconciliation Pharmacy has completed the medication reconciliation. Patient was a poor historian and seemed confused when speaking to her at bedside. Utilized claim history as I'm not sure the information she was providing was accurate. States she takes depakote BID instead of TID and that she doesn't use her olanzapine. she answered yes or no in I don't like that one or yes I like that one so answers were unclear about whether or not she is taking. Stated she dodie not started taking her potassium.
[2024-03-16 09:42] VITALS: BP 125/59; PULSE 74; RESP 20; TEMP 36.5
[2024-03-16] MEDS: Pantoprazole Sodium 40 MG/10 ML VIAL IVPUSH (10:15)
--- NOTE | 2024-03-16 11:32 | PC.NURSE ---
assumed care of pt at 0700. pt pleasantly confused. sitter camera in place for pt safety. pt IV to LAC with LR running. pt with platt catheter in place. pt currently resting quietly on stretcher in no apparent distress. awaiting surgical consult. rr even/unlabored. call byers within reach. plan of care ongoing.
--- NOTE | 2024-03-16 11:34 | P.CONCA_ITS ---
History of Present Illness History of Present Illness Date of Service: 03/16/24 Requesting physician: Jimy Phillips Consult reason: pre-op evaluation Chief complaint: Hip fracture Narrative: I was consulted to see and in cardiology consultation today for preoperative cardiovascular risk stratification. And is 88-year-old woman who presents from a correction facility after a fall and having left hip fracture. She reports left hip pain. She is alert but confused and does not provide any accurate history. She was not even aware she was at the hospital. She has left femoral fracture planned to undergo repair of the femoral fracture. Reviewed notes from the hospital and reviewed echocardiogram from [facility] system which shows moderate LV systolic dysfunction with LVEF of 35-40%, severe biatrial enlargement, moderate mitral regurgitation with possible regional wall motion abnormality suggestive underlying coronary artery disease as well as pulmonary hypertension. Patient is on diuretic regimen as outpatient as well as on neurohormonal modulation with irbesartan and metoprolol. She is also on oral anticoagulation therapy with Eliquis. She has what appears to be chronic persistent atrial fibrillation of unclear duration. Cardiology consult was sought because of her underlying cardiovascular issues requiring open surgery under general anesthesia. Patient currently appears to be comfortable and denies any symptoms of shortness of breath or chest pain. Denies any palpitations. Although history is unreliable. Review of Systems 2 Review of Systems: Yes Unobtainable due to mental status Neurologic: Reports confusion Psychiatric: Psychiatric: Reports confusion [facility] Past Medical History Medical History (Updated 03/16/24 @ 11:38 by Naresh Ardon MD) Dementia Essential hypertension Social History Social History Smoked in Last 30 Days: No Use of substances other than those prescribed or required for medical reasons: No Advance Directives: No Advance Directives Information Provided: No Do you have a plan to hurt others: No Plan Meds Allergies Allergy/AdvReac Type Severity Reaction Status Date / Time ammonia [Ammonia] Allergy Severe BURNING Verified 03/15/24 21:22 SENSATION enalaprilat [From Vasotec] Allergy Severe CHOKING Verified 03/15/24 21:22 hydrochlorothiazide Allergy Severe CHOKING Verified 03/15/24 21:22 [From Hyzaar] FEELING losartan [From Cozaar] Allergy Severe CHOKING Verified 03/15/24 21:22 FEELING Active Medications: Current Medications Acetaminophen (Acetaminophen 325 Mg Tablet) 975 mg PO Q6H PRN PRN Reason: Pain, Moderate(Pain Scale 4-6) Divalproex Sodium (Divalproex Sodium Sprinkles 125 Mg Kevin.) 125 mg PO TID [facility] Fluoxetine HCl (Fluoxetine Hcl 20 Mg Capsule) 20 mg PO DAILY [facility] Furosemide (Furosemide 40 Mg Tablet) 40 mg PO DAILY PRN; Protocol PRN Reason: Edema Memantine (Memantine Hcl 5 Mg Tablet) 5 mg PO DAILY [facility] Metoprolol Succinate (Metoprolol Succinate Er 12.5 Mg Halftab.Er.24h) 12.5 mg PO DAILY [facility]; Protocol Mirtazapine (Mirtazapine 7.5 Mg Tablet) 7.5 mg PO BEDTIME [facility] Non-Formulary Medication (Irbesartan) 300 mg PO DAILY [facility] Olanzapine (Olanzapine 7.5 Mg Tablet) 7.5 mg PO BEDTIME [facility] Pantoprazole Sodium (Pantoprazole Sodium 40 Mg/10 Ml Vial) 40 mg IVPUSH DAILY [facility] Last Admin: 03/16/24 10:15 Dose: 40 mg Potassium Chloride (Potassium Chloride Er 20 Meq Tab.Er.Prt) 20 meq PO BID [facility] Sodium Chloride (0.9 % Sodium Chloride Flush 3 Ml Syringe) 3 ml IVFLUSH QSHIFT [facility] Last Admin: 03/16/24 07:49 Dose: Not Given Home Medications ?Medication ?Instructions ?Recorded ?Confirmed ?Last Taken ?Type apixaban 2.5 mg tablet (Eliquis) 2.5 mg PO BID 03/16/24 03/16/24 Unknown History divalproex 125 mg capsule,delayed 125 mg PO TID 03/16/24 03/16/24 Unknown History release sprinkle fluoxetine 20 mg tablet 20 mg PO DAILY 03/16/24 03/16/24 Unknown History furosemide 40 mg tablet 40 mg PO DAILY PRN Edema 03/16/24 03/16/24 Unknown History irbesartan 300 mg tablet 300 mg PO DAILY 03/16/24 03/16/24 Unknown History memantine 5 mg tablet 5 mg PO DAILY 03/16/24 03/16/24 Unknown History metoprolol succinate 25 mg 12.5 mg PO DAILY 03/16/24 03/16/24 Unknown History tablet,extended release 24 hr mirtazapine 15 mg tablet 7.5 mg PO BEDTIME 03/16/24 03/16/24 Unknown History olanzapine 5 mg tablet 7.5 mg PO BEDTIME 03/16/24 03/16/24 Unknown History potassium chloride 20 mEq 20 meq PO BID 03/16/24 03/16/24 Unknown History tablet,extended release(part/cryst) Physical Exam 2 Vital Signs: Vital Signs: Last Vital Signs Temp 97.7 F 03/16/24 09:42 Pulse 74 03/16/24 09:42 Resp 20 03/16/24 09:42 BP 125/59 L 03/16/24 09:42 Pulse Ox 95 03/16/24 04:44 O2 Del Method Room Air 03/16/24 09:42 O2 Flow Rate 2 03/15/24 21:13 Oxygen Flow Rate 2 03/15/24 21:10 BMI result Body Mass Index 21.8 Const: General: cooperative, comfortable, no acute distress, alert, awake and confusion Orientation/consciousness: confusion HEENT: Head: Yes normocephalic and Yes atraumatic Neck: Neck: Yes trachea midline, Yes supple and Yes no JVD Resp: Effort & Inspection: normal respiratory effort Auscultation: clear to auscultation bilaterally Cardio: Jugular venous distension: no JVD Rhythm: abnormal rhythm irregularly irregular Heart sounds: S1 normal heart sound present, S2 normal heart sound present, no click, no gallops and Murmur heart sound present systolic GI: Auscultation: normal bowel sounds Skin: General skin exam: no rashes or lesions noted Neuro: General: moves all extremities and confusion Extrem: General: Yes no clubbing, cyanosis or edema Objective Labs and Meds 03/16/24 04:27 03/16/24 04:27 Lab results: Laboratory Results - last 24 hr 03/15/24 03/15/24 03/16/24 21:36 21:37 00:19 WBC 12.2 H RBC 4.84 D Hgb 14.8 D Hct 44.6 MCV 92.1 MCH 30.6 MCHC 33.2 RDW 14.0 Plt Count 316 D MPV 10.7 Immature Gran % (Auto) 0.6 H Neut % (Auto) 82.3 H Lymph % (Auto) 10.7 L [place] % (Auto) 6.2 Eos % (Auto) 0.0 Baso % (Auto) 0.2 Lymph # (Auto) 1.3 [place] # (Auto) 0.8 Eos # (Auto) 0.0 Baso # (Auto) 0.0 Abs Immat Gran (auto) 0.07 H Absolute Neuts (auto) 10.0 H Absolute Nucleated RBC 0.000 Nucleated RBC % (auto) 0.0 PT 15.3 H INR 1.3 H Sodium 144 Potassium 4.6 D Chloride 102 Carbon Dioxide 25 Anion Gap 22 H BUN 28 H Creatinine 0.88 Estim Creat Clear Calc 42.9 Estimated GFR > 60 Random Glucose 117 H Calcium 10.0 D Total Bilirubin 0.7 AST 31 ALT 21 Alkaline Phosphatase 100 Troponin I High Sens B-Natriuretic Peptide Total Protein 7.6 Albumin 4.2 Urine Color Yellow Urine Appearance Clear Urine pH 5.0 Ur Specific [place] 1.015 Urine Protein Negative Urine Glucose (UA) >=1000 H Urine Ketones 15 Urine Blood Negative Urine Nitrite Negative Ur Leukocyte Esterase Negative Urine RBC 0-2 Urine WBC 0-5 Ur Squamous Epith Cells 0-2 Urine Bacteria None Seen Hyaline Casts 3-5 Blood Type O Positive Antibody Screen NEGATIVE 03/16/24 04:27 WBC 14.7 H RBC 4.43 Hgb 13.7 Hct 41.5 MCV 93.7 MCH 30.9 MCHC 33.0 RDW 13.9 Plt Count 322 MPV 11.8 Immature Gran % (Auto) Neut % (Auto) Lymph % (Auto) [place] % (Auto) Eos % (Auto) Baso % (Auto) Lymph # (Auto) [place] # (Auto) Eos # (Auto) Baso # (Auto) Abs Immat Gran (auto) Absolute Neuts (auto) Absolute Nucleated RBC 0.000 Nucleated RBC % (auto) 0.0 PT INR Sodium 142 Potassium 3.9 Chloride 103 Carbon Dioxide 21 L Anion Gap 22 H BUN 30 H Creatinine 0.84 Estim Creat Clear Calc 45.0 Estimated GFR > 60 Random Glucose 101 Calcium 9.8 Total Bilirubin 0.7 AST 28 ALT 16 Alkaline Phosphatase 95 Troponin I High Sens 36.1 H B-Natriuretic Peptide 1269 H Total Protein 6.9 Albumin 3.9 Urine Color Urine Appearance Urine pH Ur Specific [place] Urine Protein Urine Glucose (UA) Urine Ketones Urine Blood Urine Nitrite Ur Leukocyte Esterase Urine RBC Urine WBC Ur Squamous Epith Cells Urine Bacteria Hyaline Casts Blood Type Antibody Screen Imaging Radiologist's impression: Impressions Cervical Spine CT 03/15/24 22:55 IMPRESSION: CT HEAD: 1. No acute intracranial process seen. 2. Age-related cerebral volume loss with chronic small vessel ischemic changes. CT CERVICAL SPINE: No acute fracture or malalignment. There is diffuse osteopenia. Head CT 03/15/24 22:55 IMPRESSION: CT HEAD: 1. No acute intracranial process seen. 2. Age-related cerebral volume loss with chronic small vessel ischemic changes. CT CERVICAL SPINE: No acute fracture or malalignment. There is diffuse osteopenia. Chest X-Ray 03/15/24 23:05 IMPRESSION: Stable enlarged cardiac silhouette. No acute cardiopulmonary process. Femur X-Ray 03/15/24 23:05 IMPRESSION: No significant abnormality identified. Hip/Pelvis X-Ray 03/15/24 23:05 IMPRESSION: Displaced left femoral neck fracture. Assessment and Plan (1) Preoperative cardiovascular examination: Status: Acute Preoperative cardiovascular exam in this elderly woman who comes with a fall and has a left hip fracture and needs urgent left hip repair under general anesthesia which is considered intermediate risk surgery. She is clinically having no active cardiac symptoms and no signs of congestive heart failure or symptoms of angina. She has baseline chronic persistent atrial fibrillation which is currently rate controlled. She also has prior history of heart failure with reduced ejection fraction with LVEF of 35-40% with unknown coronary status. She is hemodynamically stable. At current time she is looking optimal clinical shape to undergo this urgent surgery with high risk for perioperative cardiovascular morbidity mortality. Closely monitor hemodynamics during surgery. Replace fluid and blood volume quickly. Can hold oral anticoagulation till the surgery is performed. Continue irbesartan and metoprolol therapy. Can hold Lasix for now. Please consult us in the perioperative time if need be. Will sign of the case at this point time. Thank you for allowing me to partake in her care Procedures Date of Service Date of Service: 03/16/24
[2024-03-16 11:44] VITALS: BP 145/64; PULSE 62; RESP 17; TEMP 36.4; O2SAT 94
--- NOTE | 2024-03-16 11:44 | PC.NURSE ---
Dr. Watkins sts pt will not be operated on for another few days . sts the pt no longer has to be NPO and can have some water.
--- NOTE | 2024-03-16 12:15 | MHC.CM.PN ---
spoke with pts son john [phone] who is pts poa and hcp pt pt was at [facility] where she was for str family does not want pt to return pt will need rehab when dcd julianne mittal [facility]st [facility] [place] [facility] ..family plans on pt returning to [facility] assisted [facility] in [place] after her str stay
[2024-03-16 13:25] VITALS: BP 152/75; PULSE 86
[2024-03-16] MEDS: FLUoxetine HCl 20 MG CAPSULE PO (13:25)
[2024-03-16] MEDS: Memantine HCl 5 MG TABLET PO (13:25)
[2024-03-16] MEDS: Metoprolol Succinate ER 12.5 MG HALFTAB.ER.24H PO (13:25)
[2024-03-16] MEDS: Divalproex Sodium Sprinkles 125 MG CAP.DR.SPR PO ×2 (15:18→21:17)
[2024-03-16 19:33] VITALS: BP 157/83; PULSE 77; RESP 20; TEMP 36.9; O2SAT 97
[2024-03-16] MEDS: OLANZapine 7.5 MG TABLET PO (21:17)
[2024-03-16] MEDS: Potassium Chloride ER 20 MEQ TAB.ER.PRT PO (21:17)
[2024-03-16] MEDS: Mirtazapine 7.5 MG TABLET PO (21:17)
--- NOTE | 2024-03-16 21:36 | PC.NURSE ---
pt medicated per JAN- pt alert and cooperative, NAD noted at this time
--- NOTE | 2024-03-16 21:58 | PC.NURSE ---
fluids still infusing per order- approx 250mls left at this time
[2024-03-17 00:29] VITALS: BP 146/75; PULSE 91; RESP 14; TEMP 36.6; O2SAT 95
[2024-03-17 02:06] VITALS: BMI 24.4
[2024-03-17 02:13] VITALS: BP 168/80; PULSE 84; RESP 14; TEMP 37.1; O2SAT 96
[2024-03-17 06:55] LABS: MANUAL DIFF FLAG NO
[2024-03-17 07:10] LABS: Basophils Absolute Auto 0.1 X10*3/uL (0.0-0.2); Basophils Percent Auto 0.5 % (0-2); Eosinophils Percent Auto 0.2 % (0-4); Imm Gran Abs Auto 0.11 X10*3/uL (0.00-0.03); Imm Gran Pct Auto 0.8 % (0.0-0.4); Lymphocytes Absolute Auto 1.2 X10*3/uL (1.2-4.9); Lymphocytes Percent Auto 8.7 % (20-40); Mean Corpuscular HGB Conc 33.3 g/dl (31.0-35.0); Mean Corpuscular Hemoglobin 30.5 pg (27.0-33.0); Mean Corpuscular Volume 91.5 fL (80.0-98.0); Mean Platelet Volume 12.6 fL (9.4-12.3); Monocytes Absolute Auto 0.8 X10*3/uL (0.1-1.2); Monocytes Percent Auto 6.3 % (2-11); Neutrophils Absolute Auto 11.1 x10*3/uL (2.0-8.3); Neutrophils Percent Auto 83.5 % (45-73); Platelet Count 290 X10*3/uL (160-400); Red Blood Count 4.92 X10*6/uL (4.20-5.50); Red Cell Distribution Width 14.3 % (11.0-16.0); White Blood Count 13.3 X10*3/uL (4.8-10.8)
[2024-03-17 07:27] LABS: Anion Gap 19 (12-20); Blood Urea Nitrogen 29 mg/dL (9-16); Carbon Dioxide 26 mmol/L (22-29); Chloride 103 mmol/L (96-108); Creatinine Clr Calc Pharmacy 47.2; Estimated Glomerular Filt Rate > 60; Glucose Random 92 mg/dL (60-115); Potassium 4.1 mmol/L (3.3-5.1); Sodium 144 mmol/L (135-145)
[2024-03-17 07:49] VITALS: BP 141/70; PULSE 86; RESP 16; TEMP 36.3; O2SAT 99
--- NOTE | 2024-03-17 08:19 | P.PNIM_ITS ---
Subjective Subjective Date of Service: 03/17/24 Interval History: No significant nursing events overnight. Complains of pain with movement of left lower extremity Review of Systems Review of Systems: Yes all other systems are reviewed and are negative Physical Exam 2 Vital Signs: Vital Signs: Last Vital Signs Temp 97.3 F 03/17/24 07:49 Pulse 86 03/17/24 07:49 Resp 16 03/17/24 07:49 BP 141/70 H 03/17/24 07:49 Pulse Ox 99 03/17/24 07:49 O2 Del Method Room Air 03/17/24 07:49 O2 Flow Rate 2 03/15/24 21:13 Oxygen Flow Rate 2 03/15/24 21:10 BMI result Body Mass Index 24.4 Constitutional - Awake and Alert, No apparent distress. Cooperative. Pleasant. Confused at times. HEENT - Pupils equally round. Normal sclerae. Moist oral mucosa. Heart - Irregular rhythm. Lungs - Normal lung expansion, Normal respiratory effort, No respiratory distress, CTA bilaterally Abdomen - NT / ND; +BS; No rebound or guarding Extremities - Left hip tenderness and limited ROM, left leg laying external rotation and shorter than right one. Distal pulses 2+ bilaterally Musculoskeletal - Normal inspection, normal ROM Skin - Warm/Dry Neurological - Alert & oriented only to person. Psychological - Confused. No agitation. Objective Data Active Medications Acetaminophen (Acetaminophen 325 Mg Tablet) 975 mg PO Q6H PRN PRN Reason: Pain, Moderate(Pain Scale 4-6) Divalproex Sodium (Divalproex Sodium Sprinkles 125 Mg ) 125 mg PO TID [facility] Last Admin: 03/16/24 21:17 Dose: 125 mg Documented By: JAQUI Fluoxetine HCl (Fluoxetine Hcl 20 Mg Capsule) 20 mg PO DAILY [facility] Last Admin: 03/16/24 13:25 Dose: 20 mg Documented By: LAVELL Furosemide (Furosemide 40 Mg Tablet) 40 mg PO DAILY PRN; Protocol PRN Reason: Edema Memantine (Memantine Hcl 5 Mg Tablet) 5 mg PO DAILY [facility] Last Admin: 03/16/24 13:25 Dose: 5 mg Documented By: LAVELL Metoprolol Succinate (Metoprolol Succinate Er 12.5 Mg Halftab.Er.24h) 12.5 mg PO DAILY [facility]; Protocol Last Admin: 03/16/24 13:25 Dose: 12.5 mg Documented By: LAVELL Mirtazapine (Mirtazapine 7.5 Mg Tablet) 7.5 mg PO BEDTIME [facility] Last Admin: 03/16/24 21:17 Dose: 7.5 mg Documented By: JAQUI Olanzapine (Olanzapine 7.5 Mg Tablet) 7.5 mg PO BEDTIME [facility] Last Admin: 03/16/24 21:17 Dose: 7.5 mg Documented By: JAQUI Pantoprazole Sodium (Pantoprazole Sodium 40 Mg/10 Ml Vial) 40 mg IVPUSH DAILY [facility] Last Admin: 03/16/24 10:15 Dose: 40 mg Documented By: LAVELL Potassium Chloride (Potassium Chloride Er 20 Meq Tab.Er.Prt) 20 meq PO BID [facility] Last Admin: 03/16/24 21:17 Dose: 20 meq Documented By: JAQUI Sodium Chloride (0.9 % Sodium Chloride Flush 3 Ml Syringe) 3 ml IVFLUSH QSHIFT [facility] Last Admin: 03/16/24 23:53 Dose: Not Given Documented By: CONNOR Non-Admin Reason: IV Running Valsartan (Valsartan 160 Mg Tablet) 160 mg PO DAILY [facility] Labs 03/17/24 05:37 03/17/24 05:37 Labs: Laboratory Results - last 24 hr 03/17/24 05:37 MCV 91.5 MCH 30.5 MCHC 33.3 RDW 14.3 Plt Count 290 MPV 12.6 H Immature Gran % (Auto) 0.8 H Neut % (Auto) 83.5 H Lymph % (Auto) 8.7 L [place] % (Auto) 6.3 Eos % (Auto) 0.2 Baso % (Auto) 0.5 Lymph # (Auto) 1.2 [place] # (Auto) 0.8 Eos # (Auto) 0.0 Baso # (Auto) 0.1 Abs Immat Gran (auto) 0.11 H Absolute Neuts (auto) 11.1 H Absolute Nucleated RBC 0.000 Nucleated RBC % (auto) 0.0 Anion Gap 19 Estim Creat Clear Calc 47.2 Estimated GFR > 60 Random Glucose 92 Calcium 10.0 Assessment and Plan (1) Closed fracture of neck of left femur: Status: Acute Plan Fauzia Roberto is a 88 years old woman admitted with: * Left femoral neck fracture, displaced + close. Cardiology on board for clearance. Eliquis on hold. Orthopedic surgery appreciated * Atrial fibrillation, rate controlled. Eliquis on hold -surgery planned. Rate controlled. Telemetry. * Essential hypertension. Continue metoprolol and ARB * Dementia. Continue memantine and olanzapine. Patient is high risk for delirium post surgery. Maintain sleep-wake cycle * HFrEF. Not decompensated at this time. Lasix on hold * Code status: Full code DVT prophylaxis: SCDs Reason for continued hospitalization: Treatment of left femoral neck fracture with surgery. Quality Stroke Does the patient have a stroke diagnosis?: No VTE Prior VTE?: No VTE Risk Level:: Medical - moderate - high VTE Device Contraindication: N/A - Device Ordered VTE Drug Contraindication: Treatment Not Indicated
[2024-03-17] MEDS: 0.9 % Sodium Chloride Flush 3 ML SYRINGE IVFLUSH ×3 (08:51→20:47)
--- NOTE | 2024-03-17 11:10 | MHC.CM.PN ---
Patient not medically cleared at this time, awaiting surgical intervention. Anticipate return to [facility] on dc. Son's first choice is [facility]. Awaiting response. Son to bring in copy of HCP. Of note, patient was at [facility] x1 week, and within the last 2 months was also at [facility] for 3 weeks, unsure of exact dates. CM will continue to follow.
--- NOTE | 2024-03-17 11:40 | P.CDIM_ITS ---
PROVIDER RESPONSE TEXT: To clarify, the appropriate diagnosis supported by the clinical indicators: Clinically unable to determine (explain): unspecified dementia QUERY TEXT: PHYSICIAN'S DOCUMENTATION REQUEST Date of Query: 03/17/2024 11:23 AM EDT Patient Name: Fauzia Roberto Admit Date: 03/16/2024 Dear Jimy Phillips MD, A review of the medical record indicates additional documentation may be needed. Please review below and update the documentation accordingly. Clinical Indicators: Patient had a fall, unaware she is in the hospital, confused at baseline. Unable to provide a reliable HRI due to underlying significant dementia. If possible, please further clarify type of Dementia: Dementia Vascular, Senile, Progressive, moderate, mild, severe etc. Other (explain) Clinically unable to determine (explain) Thank you, Katiana Mclaughlin, CCS, CDIS Use of terms such as suspected, likely, concern for, or probable (associated with a specific diagnosi s that is being evaluated, monitored, or treated as if it exists) are acceptable and can be coded in the inpatient se tting, when documented at the time of discharge. Please use your independent medical judgment in providing your response. THIS QUERY IS PART OF THE PERMANENT MEDICAL RECORD
[2024-03-17] MEDS: Pantoprazole Sodium 40 MG/10 ML VIAL IVPUSH (12:38)
[2024-03-17 13:07] VITALS: BP 145/66; PULSE 92
[2024-03-17] MEDS: Valsartan 160 MG TABLET PO (13:07)
[2024-03-17] MEDS: Metoprolol Succinate ER 12.5 MG HALFTAB.ER.24H PO (13:07)
[2024-03-17] MEDS: FLUoxetine HCl 20 MG CAPSULE PO (13:07)
[2024-03-17] MEDS: Divalproex Sodium Sprinkles 125 MG CAP.DR.SPR PO ×2 (13:07→20:47)
[2024-03-17] MEDS: Memantine HCl 5 MG TABLET PO (13:07)
--- NOTE | 2024-03-17 13:52 | PC.NURSE ---
0930- Patient drowsy. Responds to stimuli nodding yes/no, but non verbal at this time. SALES LEDGER CLERK attempted to give patient breakfast, but patient did not swallow eggs that were placed in mouth. This RN did not feel safe giving patient meds at this time. Dr. Phillips made aware and agreed with plan. 1300- Patient more awake. Speaking small sentences. Able to eat some of lunch, primarily soft diet. Daily meds given per EMAR at this time, crushed in applesauce. Patient tolerated well. All needs met.
[2024-03-17 15:13] VITALS: BP 135/70; PULSE 66; RESP 18; TEMP 36.6; O2SAT 94
--- NOTE | 2024-03-17 15:15 | PC.NURSE ---
1200- Patient has not voided thus far shift. Unclear when the last void was. Poor PO intake, minimal intake thus far. Bladder scanned for 241ml. Previously platt catheter placement order on hold, awaiting until closer to surgery. Dr. Phillips updated on patient status. Per MD, platt catheter can be placed. Platt catheter placed at 1400, patient tolerated well. 300ml dark yellow urine drained. All needs met.
[2024-03-17 19:12] VITALS: BP 160/78; PULSE 100; RESP 18; TEMP 36.1; O2SAT 96
[2024-03-17] MEDS: OLANZapine 7.5 MG TABLET PO (20:47)
[2024-03-17] MEDS: Mirtazapine 7.5 MG TABLET PO (20:47)
[2024-03-17] MEDS: Potassium Chloride ER 20 MEQ TAB.ER.PRT PO (20:47)
[2024-03-18] VITALS (11 sets, daily range): BP systolic 121–187; BP diastolic 62–94; PULSE 50–102; RESP 16–18; TEMP 36–37.1; O2SAT 6–100
[2024-03-18 06:14] LABS: MANUAL DIFF FLAG NO
[2024-03-18 06:27] LABS: Basophils Absolute Auto 0.1 X10*3/uL (0.0-0.2); Basophils Percent Auto 0.6 % (0-2); Eosinophils Absolute Auto 0.2 X10*3/uL (0.0-0.4); Eosinophils Percent Auto 1.5 % (0-4); Hematocrit 41.7 % (37.0-47.0); Hemoglobin 13.6 g/dl (12.0-16.0); Imm Gran Pct Auto 0.8 % (0.0-0.4); Lymphocytes Absolute Auto 1.5 X10*3/uL (1.2-4.9); Lymphocytes Percent Auto 12.7 % (20-40); Mean Corpuscular HGB Conc 32.6 g/dl (31.0-35.0); Mean Corpuscular Hemoglobin 30.6 pg (27.0-33.0); Mean Corpuscular Volume 93.7 fL (80.0-98.0); Mean Platelet Volume 12.1 fL (9.4-12.3); Monocytes Absolute Auto 0.9 X10*3/uL (0.1-1.2); Monocytes Percent Auto 7.5 % (2-11); Neutrophils Absolute Auto 9.2 x10*3/uL (2.0-8.3); Neutrophils Percent Auto 76.9 % (45-73); Platelet Count 272 X10*3/uL (160-400); Red Blood Count 4.45 X10*6/uL (4.20-5.50); Red Cell Distribution Width 14.4 % (11.0-16.0); White Blood Count 11.9 X10*3/uL (4.8-10.8)
[2024-03-18 06:32] LABS: Anion Gap 17 (12-20); Blood Urea Nitrogen 31 mg/dL (9-16); Calcium 9.6 mg/dL (8.4-10.2); Carbon Dioxide 29 mmol/L (22-29); Chloride 105 mmol/L (96-108); Creatinine Clr Calc Pharmacy 53.2; Estimated Glomerular Filt Rate > 60; Glucose Random 89 mg/dL (60-115); Potassium 3.9 mmol/L (3.3-5.1); Sodium 147 mmol/L (135-145)
[2024-03-18] MEDS: 0.9 % Sodium Chloride Flush 3 ML SYRINGE IVFLUSH ×3 (07:55→19:30)
--- NOTE | 2024-03-18 11:29 | HO.PM.IMPN ---
Subjective Subjective Date of Service: 03/18/24 Interval History: reports pain at fracture site Physical Exam Vital Signs: Vital Signs: Last Vital Signs Temp 97.8 F 03/18/24 07:01 Pulse 102 H 03/18/24 07:01 Resp 18 03/18/24 07:01 BP 146/82 H 03/18/24 07:01 Pulse Ox 94 03/18/24 07:01 O2 Del Method Room Air 03/18/24 07:01 O2 Flow Rate 2 03/15/24 21:13 Oxygen Flow Rate 2 03/15/24 21:10 BMI result Body Mass Index 24.4 Constitutional - Awake and Alert, No apparent distress. Cooperative. Pleasant. Confused at times. HEENT - Pupils equally round. Normal sclerae. Moist oral mucosa. Heart - Irregular rhythm. Lungs - Normal lung expansion, Normal respiratory effort, No respiratory distress, CTA bilaterally Abdomen - NT / ND; +BS; No rebound or guarding Extremities - Left hip tenderness and limited ROM, left leg laying external rotation and shorter than right one. Distal pulses 2+ bilaterally Musculoskeletal - Normal inspection, normal ROM Skin - Warm/Dry Neurological - Alert & oriented only to person. Psychological - Confused. No agitation. Objective Data Active Medications Acetaminophen (Acetaminophen 325 Mg Tablet) 975 mg PO Q6H PRN PRN Reason: Pain, Moderate(Pain Scale 4-6) Divalproex Sodium (Divalproex Sodium Sprinkles 125 Mg ) 125 mg PO TID [facility] Last Admin: 03/18/24 07:14 Dose: Not Given Documented By: DILIP Non-Admin Reason: NPO Fluoxetine HCl (Fluoxetine Hcl 20 Mg Capsule) 20 mg PO DAILY [facility] Last Admin: 03/18/24 07:14 Dose: Not Given Documented By: DILIP Non-Admin Reason: NPO Cefazolin Sodium/Dextrose (Ancef) 2 gm in 50 mls @ 100 mls/hr IV PREOP ONE Stop: 03/18/24 13:29 Memantine (Memantine Hcl 5 Mg Tablet) 5 mg PO DAILY [facility] Last Admin: 03/18/24 07:14 Dose: Not Given Documented By: DILIP Non-Admin Reason: NPO Metoprolol Succinate (Metoprolol Succinate Er 12.5 Mg Halftab.Er.24h) 12.5 mg PO DAILY [facility]; Protocol Last Admin: 03/18/24 07:18 Dose: Not Given Documented By: DILIP Non-Admin Reason: NPO Mirtazapine (Mirtazapine 7.5 Mg Tablet) 7.5 mg PO BEDTIME [facility] Last Admin: 03/17/24 20:47 Dose: 7.5 mg Documented By: LUZ MARIA Olanzapine (Olanzapine 7.5 Mg Tablet) 7.5 mg PO BEDTIME [facility] Last Admin: 03/17/24 20:47 Dose: 7.5 mg Documented By: LUZ MARIA Pantoprazole Sodium (Pantoprazole Sodium 40 Mg/10 Ml Vial) 40 mg IVPUSH DAILY [facility] Last Admin: 03/18/24 07:15 Dose: Not Given Documented By: DILIP Non-Admin Reason: NPO Potassium Chloride (Potassium Chloride Er 20 Meq Tab.Er.Prt) 20 meq PO BID [facility] Last Admin: 03/18/24 07:15 Dose: Not Given Documented By: DILIP Non-Admin Reason: NPO Sodium Chloride (0.9 % Sodium Chloride Flush 3 Ml Syringe) 3 ml IVFLUSH QSHIFT [facility] Last Admin: 03/18/24 07:55 Dose: 3 ml Documented By: DILIP Valsartan (Valsartan 160 Mg Tablet) 160 mg PO DAILY [facility] Last Admin: 03/18/24 07:15 Dose: Not Given Documented By: DILIP Non-Admin Reason: NPO Labs 03/18/24 05:33 03/18/24 05:33 Labs: Laboratory Results - last 24 hr 03/18/24 05:33 MCV 93.7 MCH 30.6 MCHC 32.6 RDW 14.4 Plt Count 272 MPV 12.1 Immature Gran % (Auto) 0.8 H Neut % (Auto) 76.9 H Lymph % (Auto) 12.7 L [place] % (Auto) 7.5 Eos % (Auto) 1.5 Baso % (Auto) 0.6 Lymph # (Auto) 1.5 [place] # (Auto) 0.9 Eos # (Auto) 0.2 Baso # (Auto) 0.1 Abs Immat Gran (auto) 0.10 H Absolute Neuts (auto) 9.2 H Absolute Nucleated RBC 0.000 Nucleated RBC % (auto) 0.0 Anion Gap 17 Estim Creat Clear Calc 53.2 Estimated GFR > 60 Random Glucose 89 Calcium 9.6 Assessment and Plan (1) Closed fracture of neck of left femur: Status: Acute Plan 88F PMH advanced dementia, hfref, chronic afib, htn, presented with fall complicated by left femoral neck fracture mechanical fall complciated by left femoral neck fracture Plan for surgery today Chronic atrial fibrillation Restart Eliquis when okay from surgery, continue metoprolol Hfref Euvolemic, continue metoprolol Advanced dementia unspecified Continue memantine and olanzapine DVT prophylaxis-mechanical, restart Eliquis when okay with surgery Full code Reason for continued hospitalization: Plan for surgery today Quality Stroke Does the patient have a stroke diagnosis?: No VTE Prior VTE?: No VTE Risk Level:: Medical - moderate - high VTE Device Contraindication: N/A - Device Ordered VTE Drug Contraindication: Treatment Not Indicated
--- NOTE | 2024-03-18 12:26 | MHC.CM.PN ---
PER ROUNDS PT TO OR TODAY,SON BROUGHT IN HCP SCANNED INTO [facility]
--- NOTE | 2024-03-18 12:42 | PC.NURSE ---
Patient arrived with a PRN angio #20 in right upper arm. Site asymptomatic, flushed well with no issues.
--- NOTE | 2024-03-18 13:02 | HO.ANESPROP2 ---
HPI - Anesthesia Eval Consult details Narrative: 88-year-old woman who [facility] after a [facility] and having left hip fracture. She reports left hip pain. She is alert but confused and does not provide any accurate history. She was not even aware she was at the hospital. She has left femoral fracture planned to undergo repair of the femoral fracture. Reviewed notes from the hospital and reviewed echocardiogram from [facility] system which shows moderate LV systolic dysfunction with LVEF of 35-40%, severe biatrial enlargement, moderate mitral regurgitation with possible regional wall motion abnormality suggestive underlying coronary artery disease as well as pulmonary hypertension. [facility] Active Problems Active Problems: All Active Problems Preoperative cardiovascular examination (Acute) Atrial fibrillation (Acute) Chronic anticoagulation (Acute) Closed fracture of neck of left femur (Acute) Dementia (Acute) Essential hypertension (Acute) Past Medical History Medical History COPD (chronic obstructive pulmonary disease) Dementia Essential hypertension Family History Family history of problems with anesthesia: No Surgical History Surgical History History of hysterectomy History of ear surgery History of Problems with Anesthesia: No Social History Social History Household Members: Other Patient Tobacco Use Status: Former Tobacco user Quit Date: 1989 Tobacco use type: Cigarette Years Smoked: 20 Advance Directives Date on File: 03/18/24 service: No Meds Allergies Allergy/AdvReac Type Severity Reaction Status Date / Time ammonia [Ammonia] Allergy Severe BURNING Verified 03/18/24 12:23 SENSATION enalaprilat [From Vasotec] Allergy Severe CHOKING Verified 03/18/24 12:23 hydrochlorothiazide Allergy Severe CHOKING Verified 03/18/24 12:23 [From Hyzaar] FEELING losartan [From Cozaar] Allergy Severe CHOKING Verified 03/18/24 12:23 FEELING latex Allergy Intermediate Rash Verified 03/18/24 12:24 Active Medications: Current Medications Acetaminophen (Acetaminophen 325 Mg Tablet) 975 mg PO Q6H PRN PRN Reason: Pain, Moderate(Pain Scale 4-6) Divalproex Sodium (Divalproex Sodium Sprinkles 125 Mg ) 125 mg PO TID [facility] Last Admin: 03/18/24 07:14 Dose: Not Given Fluoxetine HCl (Fluoxetine Hcl 20 Mg Capsule) 20 mg PO DAILY [facility] Last Admin: 03/18/24 07:14 Dose: Not Given Cefazolin Sodium/Dextrose (Ancef) 2 gm in 50 mls @ 100 mls/hr IV PREOP ONE Stop: 03/18/24 13:29 Memantine (Memantine Hcl 5 Mg Tablet) 5 mg PO DAILY [facility] Last Admin: 03/18/24 07:14 Dose: Not Given Metoprolol Succinate (Metoprolol Succinate Er 12.5 Mg Halftab.Er.24h) 12.5 mg PO DAILY [facility]; Protocol Last Admin: 03/18/24 07:18 Dose: Not Given Mirtazapine (Mirtazapine 7.5 Mg Tablet) 7.5 mg PO BEDTIME [facility] Last Admin: 03/17/24 20:47 Dose: 7.5 mg Olanzapine (Olanzapine 7.5 Mg Tablet) 7.5 mg PO BEDTIME [facility] Last Admin: 03/17/24 20:47 Dose: 7.5 mg Pantoprazole Sodium (Pantoprazole Sodium 40 Mg/10 Ml Vial) 40 mg IVPUSH DAILY [facility] Last Admin: 03/18/24 07:15 Dose: Not Given Potassium Chloride (Potassium Chloride Er 20 Meq Tab.Er.Prt) 20 meq PO BID [facility] Last Admin: 03/18/24 07:15 Dose: Not Given Sodium Chloride (0.9 % Sodium Chloride Flush 3 Ml Syringe) 3 ml IVFLUSH QSHIFT [facility] Last Admin: 03/18/24 07:55 Dose: 3 ml Valsartan (Valsartan 160 Mg Tablet) 160 mg PO DAILY [facility] Last Admin: 03/18/24 07:15 Dose: Not Given Home Medications ?Medication ?Instructions ?Recorded ?Confirmed ?Last Taken ?Type apixaban 2.5 mg tablet (Eliquis) 2.5 mg PO BID 03/16/24 03/16/24 Unknown History divalproex 125 mg capsule,delayed 125 mg PO TID 03/16/24 03/16/24 Unknown History release sprinkle fluoxetine 20 mg tablet 20 mg PO DAILY 03/16/24 03/16/24 Unknown History furosemide 40 mg tablet 40 mg PO DAILY PRN Edema 03/16/24 03/16/24 Unknown History irbesartan 300 mg tablet 300 mg PO DAILY 03/16/24 03/16/24 Unknown History memantine 5 mg tablet 5 mg PO DAILY 03/16/24 03/16/24 Unknown History metoprolol succinate 25 mg 12.5 mg PO DAILY 03/16/24 03/16/24 Unknown History tablet,extended release 24 hr mirtazapine 15 mg tablet 7.5 mg PO BEDTIME 03/16/24 03/16/24 Unknown History olanzapine 5 mg tablet 7.5 mg PO BEDTIME 03/16/24 03/16/24 Unknown History potassium chloride 20 mEq 20 meq PO BID 03/16/24 03/16/24 Unknown History tablet,extended release(part/cryst) Exam Height,Weight and Vital Signs: Height 5 ft 6 in Weight 68.7 kg Last Vital Signs Temp 97.6 F 03/18/24 12:40 Pulse 87 03/18/24 12:40 Resp 16 03/18/24 12:40 BP 187/73 H 03/18/24 12:40 Pulse Ox 98 03/18/24 12:40 O2 Del Method Room Air 03/18/24 12:40 O2 Flow Rate 2 03/15/24 21:13 Oxygen Flow Rate 2 03/15/24 21:10 Pertinent Lab Results Pertinent Lab Results: Laboratory Tests 03/15/24 03/15/24 03/16/24 21:36 21:37 00:19 WBC 12.2 H RBC 4.84 D Hgb 14.8 D Hct 44.6 MCV 92.1 MCH 30.6 MCHC 33.2 RDW 14.0 Plt Count 316 D MPV 10.7 Immature Gran % (Auto) 0.6 H Neut % (Auto) 82.3 H Lymph % (Auto) 10.7 L [place] % (Auto) 6.2 Eos % (Auto) 0.0 Baso % (Auto) 0.2 Lymph # (Auto) 1.3 [place] # (Auto) 0.8 Eos # (Auto) 0.0 Baso # (Auto) 0.0 Abs Immat Gran (auto) 0.07 H Absolute Neuts (auto) 10.0 H Absolute Nucleated RBC 0.000 Nucleated RBC % (auto) 0.0 PT 15.3 H INR 1.3 H Sodium 144 Potassium 4.6 D Chloride 102 Carbon Dioxide 25 Anion Gap 22 H BUN 28 H Creatinine 0.88 Estim Creat Clear Calc 42.9 Estimated GFR > 60 Random Glucose 117 H Calcium 10.0 D Total Bilirubin 0.7 AST 31 ALT 21 Alkaline Phosphatase 100 Troponin I High Sens B-Natriuretic Peptide Total Protein 7.6 Albumin 4.2 Urine Color Yellow Urine Appearance Clear Urine pH 5.0 Ur Specific [place] 1.015 Urine Protein Negative Urine Glucose (UA) >=1000 H Urine Ketones 15 Urine Blood Negative Urine Nitrite Negative Ur Leukocyte Esterase Negative Urine RBC 0-2 Urine WBC 0-5 Ur Squamous Epith Cells 0-2 Urine Bacteria None Seen Hyaline Casts 3-5 Blood Type O Positive Antibody Screen NEGATIVE 03/16/24 03/17/24 03/18/24 04:27 05:37 05:33 WBC 14.7 H 13.3 H 11.9 H RBC 4.43 4.92 4.45 Hgb 13.7 15.0 13.6 Hct 41.5 45.0 41.7 MCV 93.7 91.5 93.7 MCH 30.9 30.5 30.6 MCHC 33.0 33.3 32.6 RDW 13.9 14.3 14.4 Plt Count 322 290 272 MPV 11.8 12.6 H 12.1 Immature Gran % (Auto) 0.8 H 0.8 H Neut % (Auto) 83.5 H 76.9 H Lymph % (Auto) 8.7 L 12.7 L [place] % (Auto) 6.3 7.5 Eos % (Auto) 0.2 1.5 Baso % (Auto) 0.5 0.6 Lymph # (Auto) 1.2 1.5 [place] # (Auto) 0.8 0.9 Eos # (Auto) 0.0 0.2 Baso # (Auto) 0.1 0.1 Abs Immat Gran (auto) 0.11 H 0.10 H Absolute Neuts (auto) 11.1 H 9.2 H Absolute Nucleated RBC 0.000 0.000 0.000 Nucleated RBC % (auto) 0.0 0.0 0.0 PT INR Sodium 142 144 147 H Potassium 3.9 4.1 3.9 Chloride 103 103 105 Carbon Dioxide 21 L 26 29 Anion Gap 22 H 19 17 BUN 30 H 29 H 31 H Creatinine 0.84 0.80 0.71 Estim Creat Clear Calc 45.0 47.2 53.2 Estimated GFR > 60 > 60 > 60 Random Glucose 101 92 89 Calcium 9.8 10.0 9.6 Total Bilirubin 0.7 AST 28 ALT 16 Alkaline Phosphatase 95 Troponin I High Sens 36.1 H B-Natriuretic Peptide 1269 H Total Protein 6.9 Albumin 3.9 Urine Color Urine Appearance Urine pH Ur Specific [place] Urine Protein Urine Glucose (UA) Urine Ketones Urine Blood Urine Nitrite Ur Leukocyte Esterase Urine RBC Urine WBC Ur Squamous Epith Cells Urine Bacteria Hyaline Casts Blood Type Antibody Screen Airway Heart: rrr Lungs: cta Assessment and Plan Assessment Anesthesia Assessment: Anesthesia Plan Discussed Final Anesthetic Review Family History of Problems with Anesthesia: No History of Problems with Anesthesia: No NPO: Yes ASA Class: III and Emergency Final Preanesthetic Review: No Changes in Pt Med Stat, Meds/Allgs Chart Reviewed, Consent Obtained/Reviewed and Anes Risks/Benef Reviewed Patient Risk: High Procedure Risk: Intermediate Anesthetic Plan Anesthetic Plan: GA Disposition: Standard PACU
--- NOTE | 2024-03-18 13:27 | MHC.SHP ---
Pre-Procedural Eval Section A - 24 Hr Update-Section A only Date of Service: 03/18/24 The patient is an INPATIENT: Yes Changes since office visit: No Cold of Flu in the past 2 weeks, No New Medical Problems, No Changes in Medication and No Patient answered all questions The patient has been examined within 24 hours of the surgical procedure. The History & Physical has been completed within 30 days and I have reviewed it.: Yes Section B - Complete if H&P > 30 days Chief Complaint: Hip fracture Allergies: Allergies Allergy/AdvReac Type Severity Reaction Status Date / Time ammonia [Ammonia] Allergy Severe BURNING Verified 03/18/24 12:23 SENSATION enalaprilat [From Vasotec] Allergy Severe CHOKING Verified 03/18/24 12:23 hydrochlorothiazide Allergy Severe CHOKING Verified 03/18/24 12:23 [From Hyzaar] FEELING losartan [From Cozaar] Allergy Severe CHOKING Verified 03/18/24 12:23 FEELING latex Allergy Intermediate Rash Verified 03/18/24 12:24 Plan I have reviewed the history and physical and performed a pertinent physical examination on my patient. No changes have occurred unless specified. Time Spent With Patient Time: Total time managing care of this patient today ____ minutes.
--- NOTE | 2024-03-18 15:14 | P.BOP_ITS ---
Brief Operative Note Date of Service: 03/18/24 Pre-op diagnosis: Left femoral neck fracture Post-op diagnosis: same Procedure: Left hip hemiarthroplasty Implants: Donald Accolade 2 # 4 127 deg with + 4/45 bipolar Surgeon: Rayo Watkins MD Anesthesia: GLMA and local Was an Capsule Filling Machine Operator used for this Procedure?: No Estimated blood loss (mL): 150 IV fluids (mL): 750 Pathology: other Condition: stable Disposition: PACU
[2024-03-18] MEDS: ceFAZolin Sodium/Dextrose,Iso 2 GM/50 ML PIGGYBACK IV (19:28)
[2024-03-18] MEDS: Divalproex Sodium Sprinkles 125 MG CAP.DR.SPR PO (20:45)
[2024-03-18] MEDS: OLANZapine 7.5 MG TABLET PO (20:45)
[2024-03-18] MEDS: Mirtazapine 7.5 MG TABLET PO (20:45)
[2024-03-18] MEDS: Potassium Chloride ER 20 MEQ TAB.ER.PRT PO (20:45)
[2024-03-19 03:59] VITALS: BP 135/65; PULSE 74; RESP 18; TEMP 36.3; O2SAT 97
--- NOTE | 2024-03-19 04:16 | PC.NURSE ---
pt did not c/o pain, still confused but she was asking for some water. more talking. however, she pulled out her IV once. new IV established on R. AC 20g by charge nurse Serafin. provided ice pack, F/C patency, dark yellow color and clear. will cont. monitor.
[2024-03-19 05:30] VITALS: PULSE 85; RESP 16; O2SAT 94
[2024-03-19 06:21] LABS: Hematocrit 39.9 % (37.0-47.0); Hemoglobin 12.6 g/dl (12.0-16.0); Mean Corpuscular HGB Conc 31.6 g/dl (31.0-35.0); Mean Corpuscular Hemoglobin 30.4 pg (27.0-33.0); Mean Corpuscular Volume 96.4 fL (80.0-98.0); Mean Platelet Volume 11.5 fL (9.4-12.3); Platelet Count 233 X10*3/uL (160-400); Red Blood Count 4.14 X10*6/uL (4.20-5.50); Red Cell Distribution Width 14.3 % (11.0-16.0); White Blood Count 9.1 X10*3/uL (4.8-10.8)
[2024-03-19 06:32] LABS: Anion Gap 14 (12-20); Blood Urea Nitrogen 27 mg/dL (9-16); Calcium 8.9 mg/dL (8.4-10.2); Carbon Dioxide 29 mmol/L (22-29); Chloride 106 mmol/L (96-108); Creatinine Clr Calc Pharmacy 52.4; Estimated Glomerular Filt Rate > 60; Glucose Fasting 97 mg/dL (60-99); Potassium 4.1 mmol/L (3.3-5.1); Sodium 145 mmol/L (135-145)
[2024-03-19 06:49] VITALS: BP 152/70; PULSE 110; RESP 16; TEMP 36.1; O2SAT 95
[2024-03-19] MEDS: Potassium Chloride ER 20 MEQ TAB.ER.PRT PO ×2 (08:49→21:25)
[2024-03-19] MEDS: FLUoxetine HCl 20 MG CAPSULE PO (08:49)
[2024-03-19] MEDS: Memantine HCl 5 MG TABLET PO (08:49)
[2024-03-19] MEDS: Metoprolol Succinate ER 12.5 MG HALFTAB.ER.24H PO (08:49)
[2024-03-19] MEDS: Divalproex Sodium Sprinkles 125 MG CAP.DR.SPR PO ×3 (08:49→21:25)
[2024-03-19] MEDS: Valsartan 160 MG TABLET PO (08:49)
--- NOTE | 2024-03-19 09:57 | P.PNIM_ITS ---
Subjective Subjective Date of Service: 03/19/24 Interval History: no complaints Physical Exam 2 Vital Signs: Vital Signs: Last Vital Signs Temp 96.9 F 03/19/24 06:49 Pulse 110 H 03/19/24 06:49 Resp 16 03/19/24 06:49 BP 152/70 H 03/19/24 06:49 Pulse Ox 95 03/19/24 06:49 O2 Del Method Room Air 03/19/24 06:49 O2 Flow Rate 2 03/19/24 03:59 Oxygen Flow Rate 2 03/15/24 21:10 BMI result Body Mass Index 24.4 General: AO X 1, no acute distress Resp: CTA bilateral, no accessory muscles used CVS: S1,S2,RRR, murmur GI: soft, non tender, non distended Neuro: motor grossly intact, alert Objective Data Active Medications Acetaminophen (Acetaminophen 325 Mg Tablet) 975 mg PO Q6H PRN PRN Reason: Pain, Moderate(Pain Scale 4-6) Divalproex Sodium (Divalproex Sodium Sprinkles 125 Mg ) 125 mg PO TID [facility] Last Admin: 03/19/24 08:49 Dose: 125 mg Documented By: SHOBHA Enoxaparin Sodium (Enoxaparin Sodium 40 Mg/0.4 Ml Syringe) 40 mg SUBCUT Q24H [facility] Fluoxetine HCl (Fluoxetine Hcl 20 Mg Capsule) 20 mg PO DAILY [facility] Last Admin: 03/19/24 08:49 Dose: 20 mg Documented By: SHOBHA Memantine (Memantine Hcl 5 Mg Tablet) 5 mg PO DAILY [facility] Last Admin: 03/19/24 08:49 Dose: 5 mg Documented By: SHOBHA Metoprolol Succinate (Metoprolol Succinate Er 12.5 Mg Halftab.Er.24h) 12.5 mg PO DAILY [facility]; Protocol Last Admin: 03/19/24 08:49 Dose: 12.5 mg Documented By: SHOBHA Mirtazapine (Mirtazapine 7.5 Mg Tablet) 7.5 mg PO BEDTIME [facility] Last Admin: 03/18/24 20:45 Dose: 7.5 mg Documented By: LUZ MARIA Olanzapine (Olanzapine 7.5 Mg Tablet) 7.5 mg PO BEDTIME [facility] Last Admin: 03/18/24 20:45 Dose: 7.5 mg Documented By: LUZ MARIA Potassium Chloride (Potassium Chloride Er 20 Meq Tab.Er.Prt) 20 meq PO BID [facility] Last Admin: 03/19/24 08:49 Dose: 20 meq Documented By: SHOBHA Sodium Chloride (0.9 % Sodium Chloride Flush 3 Ml Syringe) 3 ml IVFLUSH QSHIFT [facility] Last Admin: 03/19/24 09:06 Dose: Not Given Documented By: SHOBHA Non-Admin Reason: No Access Valsartan (Valsartan 160 Mg Tablet) 160 mg PO DAILY [facility] Last Admin: 03/19/24 08:49 Dose: 160 mg Documented By: SHOBHA Labs 03/19/24 05:38 03/19/24 05:38 Labs: Laboratory Results - last 24 hr 03/19/24 05:38 MCV 96.4 MCH 30.4 MCHC 31.6 RDW 14.3 Plt Count 233 MPV 11.5 Absolute Nucleated RBC 0.000 Nucleated RBC % (auto) 0.0 Anion Gap 14 Estim Creat Clear Calc 52.4 Estimated GFR > 60 Fasting Glucose 97 Calcium 8.9 D Assessment and Plan (1) Closed fracture of neck of left femur: Status: Acute Plan 88F PMH advanced dementia, hfref, chronic afib, htn, presented with fall complicated by left femoral neck fracture mechanical fall complciated by left femoral neck fracture pod 1 pt/ot Chronic atrial fibrillation eiliquis, metoprolol Hfref Euvolemic, continue metoprolol Advanced dementia unspecified Continue memantine and olanzapine DVT prophylaxis-Eliquis Full code Reason for continued hospitalization: safe dispo Quality Stroke Does the patient have a stroke diagnosis?: No VTE Prior VTE?: No VTE Risk Level:: Medical - moderate - high VTE Device Contraindication: N/A - Device Ordered VTE Drug Contraindication: Treatment Not Indicated
--- NOTE | 2024-03-19 10:05 | P.PNOP_ITS ---
Subjective Subjective Date of Service: 03/19/24 Interval history: POD 1 s/p LT hip hemiarthroplasty resting in bed no overnight events no concerns Physical Exam Vital Signs: Vital Signs: Last Vital Signs Temp 96.9 F 03/19/24 06:49 Pulse 110 H 03/19/24 06:49 Resp 16 03/19/24 06:49 BP 152/70 H 03/19/24 06:49 Pulse Ox 95 03/19/24 06:49 O2 Del Method Room Air 03/19/24 06:49 O2 Flow Rate 2 03/19/24 03:59 Oxygen Flow Rate 2 03/15/24 21:10 BMI result Body Mass Index 24.4 Const: General: cooperative, healthy appearing and no acute distress Resp: Effort & Inspection: normal respiratory effort and able to speak in complete sentences Cardio: Rate: regular rate Peripheral pulses: Peripheral pulses 2+ thro ughout GI: Palpation (GI): Soft to palpation Skin: General skin exam: no rashes or lesions noted Extrem: Other: bandage clean dry and intact. [place] intact. No erythema or effusion. Calf supple nontender. Neurovascularly intact. Procedures Date of Service Date of Service: 03/19/24 Progress Note: A&P Assessment and plan (1) Closed fracture of neck of left femur: Status: Acute Assessment and Plan: * Continue pain mgmnt * Begin lovenox for dvt ppx x 48 hrs then resume eliquis * begin PT for LT hip babita wbat * Dispo planning-Pending PT eval, pain mgmnt Time Spent With Patient Time: Total time managing care of this patient today ____ minutes. Quality Stroke Does the patient have a stroke diagnosis?: No VTE Prior VTE?: No VTE Risk Level:: Medical - moderate - high VTE Device Contraindication: N/A - Device Ordered VTE Drug Contraindication: Treatment Not Indicated
--- NOTE | 2024-03-19 12:29 | HO.POSTANES ---
Post Anesthesia Evaluation Post Anesthesia Evaluation Date of Service: 03/18/24 Vital Signs: Vital Signs Temp Pulse Resp BP Pulse Ox O2 Del Method O2 Flow Rate 03/19/24 06:49 96.9 F 110 H 16 152/70 H 95 Room Air 03/19/24 05:30 85 16 94 Room Air 03/19/24 03:59 97.3 F 74 18 135/65 97 Nasal Cannula 2 Anesthesia: General Mental Status: Awake Pain Control: Satisfactory Nausea/Vomiting: None Hydration: Adequate Anesthesia-Related Issues: No Anes. Related Issues
[2024-03-19 15:04] VITALS: BP 152/70; PULSE 110; O2SAT 95
[2024-03-19 15:33] VITALS: BP 140/80; PULSE 90; RESP 20; TEMP 37.2; O2SAT 94
[2024-03-19 19:33] VITALS: BP 141/89; PULSE 88; RESP 18; TEMP 36.9; O2SAT 94
[2024-03-19] MEDS: OLANZapine 7.5 MG TABLET PO (21:25)
[2024-03-19] MEDS: Mirtazapine 7.5 MG TABLET PO (21:25)
[2024-03-19] MEDS: Apixaban 2.5 MG TABLET PO (21:25)
[2024-03-20 04:00] VITALS: BP 148/68; PULSE 99; RESP 18; TEMP 36.5; O2SAT 96
[2024-03-20 05:52] LABS: Hematocrit 39.5 % (37.0-47.0); Hemoglobin 12.8 g/dl (12.0-16.0); Mean Corpuscular HGB Conc 32.4 g/dl (31.0-35.0); Mean Corpuscular Hemoglobin 30.6 pg (27.0-33.0); Mean Corpuscular Volume 94.5 fL (80.0-98.0); Mean Platelet Volume 12.4 fL (9.4-12.3); Platelet Count 212 X10*3/uL (160-400); Red Blood Count 4.18 X10*6/uL (4.20-5.50); Red Cell Distribution Width 14.1 % (11.0-16.0); White Blood Count 11.3 X10*3/uL (4.8-10.8)
[2024-03-20 06:15] LABS: Anion Gap 16 (12-20); Blood Urea Nitrogen 22 mg/dL (9-16); Calcium 8.9 mg/dL (8.4-10.2); Carbon Dioxide 25 mmol/L (22-29); Chloride 101 mmol/L (96-108); Estimated Glomerular Filt Rate > 60; Glucose Fasting 94 mg/dL (60-99); Potassium 4.8 mmol/L (3.3-5.1); Sodium 137 mmol/L (135-145)
[2024-03-20 06:51] VITALS: BP 140/72; PULSE 72; RESP 18; TEMP 36.9; O2SAT 96
[2024-03-20] MEDS: Memantine HCl 5 MG TABLET PO (08:06)
[2024-03-20] MEDS: Potassium Chloride ER 20 MEQ TAB.ER.PRT PO ×2 (08:06→19:48)
[2024-03-20] MEDS: Metoprolol Succinate ER 12.5 MG HALFTAB.ER.24H PO (08:06)
[2024-03-20] MEDS: Apixaban 2.5 MG TABLET PO ×2 (08:06→19:48)
[2024-03-20] MEDS: Valsartan 160 MG TABLET PO (08:06)
[2024-03-20] MEDS: Divalproex Sodium Sprinkles 125 MG CAP.DR.SPR PO ×3 (08:06→19:48)
[2024-03-20] MEDS: FLUoxetine HCl 20 MG CAPSULE PO (08:07)
--- NOTE | 2024-03-20 09:11 | P.DS_ITS ---
DS: Providers Provider Date of Service: 03/21/24 Date of admission: 03/16/24 00:44 Primary care physician: Unknown Physician Consults: 03/16/24 00:46 Consult to Orthopedics Routine Consulting Provider: Rayo Watkins Reason for consultation: Hip fracture Has provider been notified: Yes 03/16/24 02:51 Consult to Cardiology Routine Consulting Provider: [facility] Reason for consultation: Clearance for surgery: left hip fracture. 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 It seems like the patient fell this morning after standing in bathroom to pull up pants. According to ED triage note patient is confused at baseline due to dementia. Patient was unable to provide a reliable HPI due to underlying significant dementia. In the ED the patient was found to have to have stable vital signs. Last blood pressure is 171/82. Blood workup is remarkable for leukocytosis of 12.2. Hemoglobin and platelets are normal. There are no significant electrolyte imbalances. BUN is 28 and creatinine 0.88. LFTs are normal. INR is 1.3. UA showed no evidence of urinary tract infection. CXR is negative. Hip and pelvic x-ray showed displaced left femoral neck fracture. According to ED provider case has been discussed with orthopedic service. hospital course: Patient was admitted for mechanical fall complicated by left femoral neck fracture. She underwent left hip hemiarthroplasty on 03/18/2024. Postoperative period was unremarkable. For chronic atrial fibrillation she was continued on Eliquis and metoprolol. For chronic systolic CHF she remained euvolemic and was continued on metoprolol. For advanced dementia unspecified she was continued on memantine olanzapine. Patient will be discharged back to group home facility. Time Attestation Discharge Coordination Time (in mins): 35 Quality: Safe Use of Opioids Does Pt have an Active Cancer Diagnosis on the Problem List?: No Quality: Stroke Does the patient have a stroke diagnosis?: No Physical Exam Vital Signs: Vital Signs: Last Vital Signs Temp 98.5 F 04/28/24 06:51 Pulse 72 03/20/24 06:51 Resp 18 03/20/24 06:51 BP 140/72 H 03/20/24 06:51 Pulse Ox 96 03/20/24 06:51 O2 Del Method Room Air 03/20/24 06:51 O2 Flow Rate 2 03/19/24 03:59 Oxygen Flow Rate 2 03/15/24 21:10 BMI result Body Mass Index 24.4 Const: General: cooperative, healthy appearing and no acute distress Resp: Effort & Inspection: normal respiratory effort and able to speak in complete sentences Cardio: Rate: regular rate Peripheral pulses: Peripheral pulses 2+ throughout GI: Palpation (GI): Soft to palpation Skin: General skin exam: no rashes or lesions noted Extrem: Other: bandage clean dry and intact. [place] intact. No erythema or effusion. Calf supple nontender. Neurovascularly intact. DS: Data Data Completed and Pending Pending studies at discharge: Pending at discharge 03/18/24 14:38 Surgical [PTH] Routine Labs on day of discharge: Laboratory Results - last 24 hr 03/20/24 05:14 WBC 11.3 H RBC 4.18 L Hgb 12.8 Hct 39.5 MCV 94.5 MCH 30.6 MCHC 32.4 RDW 14.1 Plt Count 212 MPV 12.4 H Absolute Nucleated RBC 0.000 Nucleated RBC % (auto) 0.0 Sodium 137 Potassium 4.8 Chloride 101 Carbon Dioxide 25 Anion Gap 16 BUN 22 H Creatinine 0.64 Estim Creat Clear Calc 59.0 Estimated GFR > 60 Fasting Glucose 94 Calcium 8.9 Discharge Plan Discharge Anticipated Discharge Date/Time: 03/20/24 09:09 Patient Disposition: Xfer [facility] Discharge Diagnosis: left femoral neck fracture Referrals: Rayo Watkins MD [Physician] - 1 Week Physician,Unknown J [Physician] - 1 Week Discharge Medications: Continued Eliquis 2.5 mg tablet 2.5 mg PO BID divalproex 125 mg capsule, delayed rel sprinkle 125 mg PO TID fluoxetine 20 mg tablet 20 mg PO DAILY furosemide 40 mg tablet 40 mg PO DAILY PRN (Reason: Edema) memantine 5 mg tablet 5 mg PO DAILY olanzapine 5 mg tablet 7.5 mg PO BEDTIME metoprolol succinate 25 mg tablet extended release 24 hr 12.5 mg PO DAILY mirtazapine 15 mg tablet 7.5 mg PO BEDTIME potassium chloride 20 mEq tablet,ER particles/crystals 20 meq PO BID irbesartan 300 mg tablet 300 mg PO DAILY Discharge Orders: Discharge Order (Routine); Ordered 03/21/24 Ordered By: Tre Goncalves Diet: Advance to usual diet Activity on Discharge: As tolerated Stand Alone Forms: Patient Portal Discharge page Print Language: Mohawk Care Plan Goals: recovery Health Concerns: left femoral neck fracture Plan of Treatment: rehab, follow up with orthopedics Assessment: see above
--- NOTE | 2024-03-20 09:56 | HO.PM.IMPN ---
Subjective Subjective Date of Service: 03/20/24 Review of Systems Review of Systems: Yes Unobtainable due to mental status Physical Exam Vital Signs: Vital Signs: Last Vital Signs Temp 98.5 F 03/20/24 06:51 Pulse 72 03/20/24 06:51 Resp 18 03/20/24 06:51 BP 140/72 H 03/20/24 06:51 Pulse Ox 96 03/20/24 06:51 O2 Del Method Room Air 03/20/24 06:51 O2 Flow Rate 2 03/19/24 03:59 Oxygen Flow Rate 2 03/15/24 21:10 BMI result Body Mass Index 24.4 Const: General: cooperative, healthy appearing and no acute distress Resp: Effort & Inspection: normal respiratory effort and able to speak in complete sentences Cardio: Rate: regular rate Peripheral pulses: Peripheral pulses 2+ throughout GI: Palpation (GI): Soft to palpation Skin: General skin exam: no rashes or lesions noted Extrem: Other: bandage clean dry and intact. [place] intact. No erythema or effusion. Calf supple nontender. Neurovascularly intact. Objective Data Active Medications Acetaminophen (Acetaminophen 325 Mg Tablet) 975 mg PO Q6H PRN PRN Reason: Pain, Moderate(Pain Scale 4-6) Apixaban (Apixaban 2.5 Mg Tablet) 2.5 mg PO BID [facility] Last Admin: 03/20/24 08:06 Dose: 2.5 mg Documented By: SHOBHA Divalproex Sodium (Divalproex Sodium Sprinkles 125 Mg ) 125 mg PO TID [facility] Last Admin: 03/20/24 08:06 Dose: 125 mg Documented By: SHOBHA Fluoxetine HCl (Fluoxetine Hcl 20 Mg Capsule) 20 mg PO DAILY [facility] Last Admin: 03/20/24 08:07 Dose: 20 mg Documented By: SHOBHA Memantine (Memantine Hcl 5 Mg Tablet) 5 mg PO DAILY [facility] Last Admin: 03/20/24 08:06 Dose: 5 mg Documented By: SHOBHA Metoprolol Succinate (Metoprolol Succinate Er 12.5 Mg Halftab.Er.24h) 12.5 mg PO DAILY [facility]; Protocol Last Admin: 03/20/24 08:06 Dose: 12.5 mg Documented By: SHOBHA Mirtazapine (Mirtazapine 7.5 Mg Tablet) 7.5 mg PO BEDTIME [facility] Last Admin: 03/19/24 21:25 Dose: 7.5 mg Documented By: LUZ MARIA Olanzapine (Olanzapine 7.5 Mg Tablet) 7.5 mg PO BEDTIME [facility] Last Admin: 03/19/24 21:25 Dose: 7.5 mg Documented By: LUZ MARIA Potassium Chloride (Potassium Chloride Er 20 Meq Tab.Er.Prt) 20 meq PO BID [facility] Last Admin: 03/20/24 08:06 Dose: 20 meq Documented By: SHOBHA Sodium Chloride (0.9 % Sodium Chloride Flush 3 Ml Syringe) 3 ml IVFLUSH QSHIFT [facility] Last Admin: 03/20/24 08:12 Dose: Not Given Documented By: SHOBHA Non-Admin Reason: No Access Valsartan (Valsartan 160 Mg Tablet) 160 mg PO DAILY [facility] Last Admin: 03/20/24 08:06 Dose: 160 mg Documented By: SHOBHA Labs 03/20/24 05:14 03/20/24 05:14 Labs: Laboratory Results - last 24 hr 03/20/24 05:14 MCV 94.5 MCH 30.6 MCHC 32.4 RDW 14.1 Plt Count 212 MPV 12.4 H Absolute Nucleated RBC 0.000 Nucleated RBC % (auto) 0.0 Anion Gap 16 Estim Creat Clear Calc 59.0 Estimated GFR > 60 Fasting Glucose 94 Calcium 8.9 Assessment and Plan (1) Closed fracture of neck of left femur: Status: Acute Plan 88F PMH advanced dementia, hfref, chronic afib, htn, presented with fall complicated by left femoral neck fracture mechanical fall complciated by left femoral neck fracture pod 2 pt/ot Chronic atrial fibrillation eiliquis, metoprolol Hfref Euvolemic, continue metoprolol Advanced dementia unspecified Continue memantine and olanzapine DVT prophylaxis-Eliquis Full code Reason for continued hospitalization: safe dispo Quality Stroke Does the patient have a stroke diagnosis?: No VTE Prior VTE?: No VTE Risk Level:: Medical - moderate - high VTE Device Contraindication: N/A - Device Ordered VTE Drug Contraindication: Treatment Not Indicated
--- NOTE | 2024-03-20 15:03 | MHC.CM.PN ---
CM MET WITH PT'S SON AT BEDSIDE. SON REQUESTS NO TRANSFER TO [facility]. [facility] REMAINS FIRST CHOICE. [facility] LIAISON REQUESTS UPDATED P.T. NOTE TO REVIEW BEFORE THEY WILL ACCEPT. CM WILL CONTINUE TO FOLLOW FOR PLAN.
[2024-03-20 16:00] VITALS: BP 151/96; PULSE 94; RESP 18; TEMP 36.4; O2SAT 94
[2024-03-20] MEDS: OLANZapine 7.5 MG TABLET PO (19:48)
[2024-03-20] MEDS: Mirtazapine 7.5 MG TABLET PO (19:48)
[2024-03-20 21:09] VITALS: BP 152/79; PULSE 89; RESP 18; TEMP 36.5; O2SAT 94
[2024-03-21] VITALS (19 sets, daily range): BP systolic 109–158; BP diastolic 56–99; PULSE 67–143; RESP 16–24; TEMP 35.9–36.9; O2SAT 90–98
--- NOTE | 2024-03-21 | ECG_ITS ---
Test Reason : tachycardia Blood Pressure : / mmHG Vent. Rate : 151 BPM Atrial Rate : 000 BPM P-R Int : 000 ms QRS Dur : 084 ms QT Int : 238 ms P-R-T Axes : 000 032 222 degrees QTc Int : 377 ms Atrial fibrillation with rapid ventricular response Marked ST abnormality, possible lateral subendocardial injury Abnormal ECG When compared with ECG of 15-MAR-2024 21:22, Vent. rate has increased BY 73 BPM Referred By: Rocio Phillips Electronically Signed By:ASHWINI AGARWAL
--- NOTE | 2024-03-21 | ECG_ITS ---
Test Reason : tachycardia Blood Pressure : / mmHG Vent. Rate : 129 BPM Atrial Rate : 000 BPM P-R Int : 000 ms QRS Dur : 086 ms QT Int : 312 ms P-R-T Axes : 000 009 228 degrees QTc Int : 457 ms Atrial fibrillation with rapid ventricular response with premature ventricular or aberrantly conducted complexes Nonspecific ST and T wave abnormality Abnormal ECG No previous ECGs available Referred By: Rocio Phillips Electronically Signed By:ASHWINI AGARWAL
--- NOTE | 2024-03-21 00:22 | PM.EVENT ---
Event Note Date of Service: 03/21/24 Event Note: Nurse reported hypoxemia. No wheezing on exam, faint crackles at bases. Will obtain x-ray and VBG Time Spent With Patient Time: Total time managing care of this patient today ____ minutes.
[2024-03-21 01:09] LABS: VBG HCO3 31 mmol/L (22-26); VBG pCO2 46 mmHg; VBG pH 7.44 (7.32-7.43); VBG pO2 33 mmHg
[2024-03-21 01:10] LABS: Venous Blood Gas Refer to POC result
[2024-03-21] MEDS: Furosemide 20 MG/2 ML VIAL IVPUSH (02:28)
--- NOTE | 2024-03-21 02:35 | PC.NURSE ---
pt lung sounds had rhonchi around midnight. called to RT, given deep suctions. it was good effectiveness. lung sounds clear. notified new xray order, lab, and IV PUSH lasix. new IV established by OSCAR Zarate. given lasix. will cont. monitor.
--- NOTE | 2024-03-21 05:53 | PC.NURSE ---
after lasix pt voided 150 mL more. pt slept less than 1 hour. pt states that I am not feeling good today. intermittently coughing. O2 sat 94% via NC 1L. try to weaning down but can't get good reading. provided q2r, incontinent care, ice pack to left hip, warm blanket, call byers in reach, offered some water. pt refused for water. pt busy work with blanket and iv site. IV 22g right wrist. will cont. monitor.
[2024-03-21] MEDS: Memantine HCl 5 MG TABLET PO (09:11)
[2024-03-21] MEDS: Metoprolol Succinate ER 12.5 MG HALFTAB.ER.24H PO (09:11)
[2024-03-21] MEDS: Valsartan 160 MG TABLET PO (09:11)
[2024-03-21] MEDS: Acetaminophen 325 MG TABLET 975 MG PO (09:11)
[2024-03-21] MEDS: Apixaban 2.5 MG TABLET PO (09:12)
[2024-03-21] MEDS: Divalproex Sodium Sprinkles 125 MG CAP.DR.SPR PO (09:12)
[2024-03-21] MEDS: 0.9 % Sodium Chloride Flush 3 ML SYRINGE IVFLUSH ×3 (09:12→21:13)
[2024-03-21] MEDS: Potassium Chloride ER 20 MEQ TAB.ER.PRT PO (09:12)
[2024-03-21] MEDS: FLUoxetine HCl 20 MG CAPSULE PO (09:12)
--- NOTE | 2024-03-21 09:38 | P.PNIM_ITS ---
Subjective Subjective Date of Service: 03/21/24 Interval History: no copmlaints Physical Exam 2 Vital Signs: Vital Signs: Last Vital Signs Temp 98 F 03/21/24 06:44 Pulse 86 03/21/24 06:44 Resp 16 03/21/24 06:44 BP 158/80 H 03/21/24 09:11 Pulse Ox 90 L 03/21/24 06:44 O2 Del Method Nasal Cannula 03/21/24 06:44 O2 Flow Rate 1 03/21/24 06:44 Oxygen Flow Rate 2 03/15/24 21:10 BMI result Body Mass Index 24.4 Const: General: cooperative, healthy appearing and no acute distress Resp: Effort & Inspection: normal respiratory effort and able to speak in complete sentences Cardio: Rate: regular rate Peripheral pulses: Peripheral pulses 2+ throughout GI: Palpation (GI): Soft to palpation Skin: General skin exam: no rashes or lesions noted Extrem: Other: bandage clean dry and intact. [place] intact. No erythema or effusion. Calf supple nontender. Neurovascularly intact. Objective Data Active Medications Acetaminophen (Acetaminophen 325 Mg Tablet) 975 mg PO Q6H PRN PRN Reason: Pain, Moderate(Pain Scale 4-6) Last Admin: 03/21/24 09:11 Dose: 975 mg Documented By: IRAIDA Apixaban (Apixaban 2.5 Mg Tablet) 2.5 mg PO BID [facility] Last Admin: 03/21/24 09:12 Dose: 2.5 mg Documented By: IRAIDA Divalproex Sodium (Divalproex Sodium Sprinkles 125 Mg ) 125 mg PO TID [facility] Last Admin: 03/21/24 09:12 Dose: 125 mg Documented By: IRAIDA Fluoxetine HCl (Fluoxetine Hcl 20 Mg Capsule) 20 mg PO DAILY [facility] Last Admin: 03/21/24 09:12 Dose: 20 mg Documented By: IRAIDA Memantine (Memantine Hcl 5 Mg Tablet) 5 mg PO DAILY [facility] Last Admin: 03/21/24 09:11 Dose: 5 mg Documented By: IRAIDA Metoprolol Succinate (Metoprolol Succinate Er 12.5 Mg Halftab.Er.24h) 12.5 mg PO DAILY [facility]; Protocol Last Admin: 03/21/24 09:11 Dose: 12.5 mg Documented By: IRAIDA Mirtazapine (Mirtazapine 7.5 Mg Tablet) 7.5 mg PO BEDTIME [facility] Last Admin: 03/20/24 19:48 Dose: 7.5 mg Documented By: SHOBHA Olanzapine (Olanzapine 7.5 Mg Tablet) 7.5 mg PO BEDTIME [facility] Last Admin: 03/20/24 19:48 Dose: 7.5 mg Documented By: SHOBHA Potassium Chloride (Potassium Chloride Er 20 Meq Tab.Er.Prt) 20 meq PO BID [facility] Last Admin: 03/21/24 09:12 Dose: 20 meq Documented By: IRAIDA Sodium Chloride (0.9 % Sodium Chloride Flush 3 Ml Syringe) 3 ml IVFLUSH QSHIFT [facility] Last Admin: 03/21/24 09:12 Dose: 3 ml Documented By: IRAIDA Valsartan (Valsartan 160 Mg Tablet) 160 mg PO DAILY [facility] Last Admin: 03/21/24 09:11 Dose: 160 mg Documented By: IRAIDA Labs 03/20/24 05:14 03/20/24 05:14 Labs: Laboratory Results - last 24 hr 03/21/24 01:01 VBG pH 7.44 H VBG pCO2 46 VBG pO2 33 VBG HCO3 31 H VBG O2 Saturation 51.0 VBG Base Excess 7.0 Assessment and Plan (1) Closed fracture of neck of left femur: Status: Acute Plan 88F PMH advanced dementia, hfref, chronic afib, htn, presented with fall complicated by left femoral neck fracture mechanical fall complciated by left femoral neck fracture pod 3 pt/ot Chronic atrial fibrillation eiliquis, metoprolol acute hypoxic respiratory failure cxr with pulm htn, likely some acute on chronic hfref, improved with diuresis Hfref continue metoprolol Advanced dementia unspecified Continue memantine and olanzapine DVT prophylaxis-Eliquis Full code Reason for continued hospitalization: safe dispo Quality Stroke Does the patient have a stroke diagnosis?: No VTE Prior VTE?: No VTE Risk Level:: Medical - moderate - high VTE Device Contraindication: N/A - Device Ordered VTE Drug Contraindication: Treatment Not Indicated
--- NOTE | 2024-03-21 12:55 | P.CDIM_ITS ---
PROVIDER RESPONSE TEXT: To clarify, the appropriate diagnosis supported by the clinical indicators: Hypernatremia: acute QUERY TEXT: PHYSICIAN'S DOCUMENTATION REQUEST Date of Query: 03/21/2024 12:44 PM EDT Patient Name: Fauzia Roberto Admit Date: 03/16/2024 Dear Tre Goncalves, A review of the medical record indicates additional documentation may be needed. Please review below and update the documentation accordingly. Clinical Indicators: LAB FINDINGS: 03/18 - sodium 147 H Based on the above, is there a diagnosis that correlates with these lab findings: Hypernatremia resolved, possible, probable Labs indicate a diagnosis of (please specify) Other (explain) Clinically unable to determine (explain) Thank you, Katiana Mclaughlin, CCS, CDIS Use of terms such as suspected, likely, concern for, or probable (associated with a specific diagnosi s that is being evaluated, monitored, or treated as if it exists) are acceptable and can be coded in the inpatient se tting, when documented at the time of discharge. Please use your independent medical judgment in providing your response. THIS QUERY IS PART OF THE PERMANENT MEDICAL RECORD
--- NOTE | 2024-03-21 13:04 | MHC.CM.PN ---
pt to have speech eval prior to dc miguelina is following
[2024-03-21 13:10] LABS: ABG Base Excess 4.2 mmol/L; ABG HCO3 30 mmol/L (22-26); ABG pCO2 50 mmHg (32-45); ABG pH 7.38 (7.35-7.45); ABG pO2 71 mmHg (83-108)
[2024-03-21] MEDS: Furosemide 40 MG/4 ML VIAL IVPUSH (13:34)
[2024-03-21 14:19] LABS: ABG Refer to POC result
--- NOTE | 2024-03-21 15:23 | MHC.SLORD ---
Speech Language Pathology Order Status: HEAD OF MATHEMATICS attempted to see patient for bedside swallow exam. Patient sounding very wet and gurgly upon expiration with very weak, nonproductive cough. RN attempted to suction with yankeur but this had minimal effect. Notified MD of possible need for deep suction, patient did need deep suction earlier this a.m. Per EMR, patient was also previously pocketing eggs and nursing staff did not feel safe feeding her. Patient is not appropriate at this time for PO trials as she is not managing secretions, presenting with worsening hypoxia. Recommend NPO at this time. Plan to assess tomorrow morning if appropriate.
--- NOTE | 2024-03-21 15:40 | PC.RT ---
Patient on 6L NC for SPO2 84, placed on 12L Oxymask for increase in SPO2 to 92%. MD and RN in room at time of this change.
--- NOTE | 2024-03-21 15:46 | PC.NURSE ---
Addendum entered by Kyara Lamar RN 03/21/24 15:57: CXR ordered when patient became hypoxic. Dr. Goncalves aware of results. Original Note: Pt with wet, weak cough and wet and gurgly sounding throat. O2 sat 93-94% on room air. Lung sounds with rhonchi throughout. Yankeur suctioned throat and mouth. Small amt of food suctioned from mouth. Swallow eval ordered but not safe to do eval per TOWNSHIP CLERK. Pt becoming increasingly gurgly. Deep suctioned by respiratory therapy and then this RN. O2 sats 78-80% on 3L. Increaed O2 to 6L, 83%. Respiratory called and Dr. Goncalves notified. oxymask applied. Sat 94% on 15L oxymask. Lasix 40 IV ordered and given. Pt sounding less gurgly at present. NPO order at present time. No IV fluids needed per Dr. Goncalves. Pt frequently takes off O2. Telesitter in place.
--- NOTE | 2024-03-21 15:55 | PC.NURSE ---
Day shift RN reported patient should be NPO,Dr. Goncalves notified,questioned need for IV fluids
[2024-03-21 17:45] LABS: Glucose, Whole Blood 115 mg/dL (60-115)
--- NOTE | 2024-03-21 17:51 | PM.EVENT ---
Event Note Date of Service: 03/21/24 Event Note: S:RR response called for 88 yo women with AMS and wob. SBP 170, LS rhonchi, somnolent. Patient received IV lasix at 1330, CXR showed congestion. ? of aspiration pna, started on Unasyn, now with htn, tachypnea and tachycardia O: opens eyes to stimulation, but confused LS rhonchi throughout abd soft mild LE putting edema AP: Acute encephaloapthy, unspecified opens eyes to stimulation Hypoxia Morphine 2mg for tachypnea/wob Nasal sunction with good response 15 liters of face mask plan for high flow when tx to [facility]MC Tachycardia EKG showing Afib RVR HR 150's give one dose cardizem 5mg now and monitor Plan to tx to [facility]MC 461 HTN better after suction and morphine BMP, trop and mag ordered Time Spent With Patient Time: Total time managing care of this patient today ____ minutes.
[2024-03-21] MEDS: Morphine Sulfate 2 MG/ML CARTRIDGE IVPUSH (18:08)
--- NOTE | 2024-03-21 18:11 | PC.NURSE ---
Arranged for 1:1 sitter for patient early afternoon because patient was taking her oxymask off ,LOU Mendoza sitting with patient reported to RN patient is having greater difficulty breathing,on asseessment patient condition changed from previous ,weak,unable to answer questions,HR and BP elevated,pt sounds very congested,notified Dr. Goncalves,asked to reassess patient,since patient derveloped more difficulty breathing Rapid Response was called,2 mg of IV Morphine was administered,ekg done,pt suctioned by respiratory therapist,patient placed on telemetry,report was given to OSCAR Humphries and patient was transferred to [facility] [place]
[2024-03-21] MEDS: dilTIAZem HCL 50 MG/10 ML VIAL 10 MG IVPUSH (18:22)
[2024-03-21] MEDS: Furosemide 100 MG/10 ML VIAL 60 MG IVPUSH (18:25)
[2024-03-21 18:41] LABS: VBG Base Excess 0.5 mmol/L; VBG HCO3 27 mmol/L (22-26); VBG pCO2 50 mmHg; VBG pH 7.33 (7.32-7.43); VBG pO2 63 mmHg
[2024-03-21 18:42] LABS: Venous Blood Gas Refer to POC result
[2024-03-21] MEDS: Albuterol/Iprat 2.5/0.5MG 3 ML AMPUL.NEB INHALE (18:49)
[2024-03-21 18:53] LABS: Anion Gap 20 (12-20); Blood Urea Nitrogen 22 mg/dL (9-16); Calcium 9.3 mg/dL (8.4-10.2); Carbon Dioxide 24 mmol/L (22-29); Chloride 102 mmol/L (96-108); Creatinine Clr Calc Pharmacy 54.7; Estimated Glomerular Filt Rate > 60; Glucose Random 105 mg/dL (60-115); Potassium 4.6 mmol/L (3.3-5.1); Sodium 141 mmol/L (135-145)
[2024-03-21 19:00] LABS: Troponin-I High Sensitivity 29.3 ng/L (<3.5-17.0)
[2024-03-21] MEDS: Acetaminophen Supp 650 MG SUPP.RECT PR (22:29)
--- NOTE | 2024-03-21 23:13 | PM.EVENT ---
Event Note Date of Service: 03/21/24 Event Note: Patient in AFib RVR. Will administered IV metoprolol push. Continue to monitor heart rate. Is on Eliquis Time Spent With Patient Time: Total time managing care of this patient today ____ minutes.
[2024-03-22] VITALS (10 sets, daily range): BP systolic 135–175; BP diastolic 54–94; PULSE 87–127; RESP 18–24; TEMP 36.2–36.7; O2SAT 90–99
[2024-03-22] MEDS: Metoprolol Tartrate 5 MG/5 ML VIAL IVPUSH (00:06)
[2024-03-22] MEDS: Morphine Sulfate 2 MG/ML CARTRIDGE 1 MG IVPUSH (00:38)
[2024-03-22 07:36] LABS: MANUAL DIFF FLAG NO
[2024-03-22 07:38] LABS: Basophils Absolute Auto 0.1 X10*3/uL (0.0-0.2); Basophils Percent Auto 0.5 % (0-2); Eosinophils Percent Auto 0.2 % (0-4); Hematocrit 35.1 % (37.0-47.0); Hemoglobin 11.5 g/dl (12.0-16.0); Imm Gran Abs Auto 0.07 X10*3/uL (0.00-0.03); Imm Gran Pct Auto 0.5 % (0.0-0.4); Lymphocytes Absolute Auto 1.4 X10*3/uL (1.2-4.9); Lymphocytes Percent Auto 10.4 % (20-40); Mean Corpuscular HGB Conc 32.8 g/dl (31.0-35.0); Mean Corpuscular Volume 94.6 fL (80.0-98.0); Monocytes Absolute Auto 1.3 X10*3/uL (0.1-1.2); Monocytes Percent Auto 10.1 % (2-11); Neutrophils Absolute Auto 10.3 x10*3/uL (2.0-8.3); Neutrophils Percent Auto 78.3 % (45-73); Platelet Count 239 X10*3/uL (160-400); Red Blood Count 3.71 X10*6/uL (4.20-5.50); Red Cell Distribution Width 14.4 % (11.0-16.0); White Blood Count 13.2 X10*3/uL (4.8-10.8)
[2024-03-22 07:41] LABS: VBG Base Excess 6.4 mmol/L; VBG HCO3 29 mmol/L (22-26); VBG pCO2 38 mmHg; VBG pH 7.49 (7.32-7.43); VBG pO2 55 mmHg
[2024-03-22 07:45] LABS: Venous Blood Gas Refer to POC result
[2024-03-22 08:02] LABS: Albumin Level 2.8 g/dL (3.5-5.0); Anion Gap 17 (12-20); Blood Urea Nitrogen 30 mg/dL (9-16); Calcium 8.9 mg/dL (8.4-10.2); Carbon Dioxide 28 mmol/L (22-29); Chloride 104 mmol/L (96-108); Estimated Glomerular Filt Rate > 60; Glucose Random 101 mg/dL (60-115); Magnesium 2.1 mg/dL (1.6-2.6); Phosphorus 5.3 mg/dL (2.7-4.5); Potassium 4.9 mmol/L (3.3-5.1); Sodium 144 mmol/L (135-145)
--- NOTE | 2024-03-22 08:11 | P.OP_ITS ---
Operative Note Operative Note Date of Service: 03/22/24 Narrative: Date of Service: 03/18/24 Pre-op diagnosis: Left femoral neck fracture Post-op diagnosis: same Procedure: Left hip hemiarthroplasty Implants: Donald Accolade 2 # 4 127 deg with + 4/45 bipolar Surgeon: Rayo Watkins MD Anesthesia: GLMA and local Was an Administrative Professional used for this Procedure?: No Estimated blood loss (mL): 150 IV fluids (mL): 750 Pathology: other Condition: stable Disposition: PACU Procedure in detail: Patient was brought to the operative room placed in the lateral decubitus position. All bony prominences were well padded and the was prepped and draped in standard sterile fashion. IV antibiotics per weight were administered and a time-out was called to identify proper site proper procedure proper surgeon. Radiographs were available and confirmed. I began by making a curvilinear incision over the posterolateral aspect of the greater trochanter. Dissection was taken down to the tensor fascia which was incised in line with the incision and a Charnley retractor was placed. The hip was internally rotated and the external rotators were identified. All vessels in the area were cauterized and a full-thickness capsular/external rotator layer was developed in a hockey-stick fashion starting just proximal to the piriformis. This layer was tagged and the displaced femoral neck fracture was identified. Clean-up cuts was performed while protection the posterolateral soft tissues and the head was removed and measured (45 mm) on the back table. I then copiously irrigated the acetabulum and removed all bony fragments. Once this was done I used a cookie cutter to lateralize and a Charnley awl to identify the canal and then sequentially broached up to a 127 deg #4. I then trialed with a standard and then a +4 head and a bipolar component matching the femoral head size. I was satisfied with the range of motion and stability and length. Therefore I removed all instrumentation and copiously irrigated. I then placed my final femoral implant and then retrialed. I was satisfied with the +4/45 implant. My final bipolar components were then placed. I closed the capsular layer with FiberWire and then irrigated. I performed a layered closure with zackery on skin. The patient was placed in sterile dressing extubated brought to recovery room in stable condition there were no known complications.
[2024-03-22] MEDS: 0.9 % Sodium Chloride Flush 3 ML SYRINGE IVFLUSH ×2 (08:25→20:06)
--- NOTE | 2024-03-22 10:42 | HO.PM.IMPN ---
Subjective Subjective Date of Service: 03/22/24 Interval History: worsening hypoxia yesterday afternoon, put on highflow, trasnfered to im, suctioned and given extra diuresis Physical Exam Vital Signs: Vital Signs: Last Vital Signs Temp 97.1 F 03/22/24 08:00 Pulse 100 03/22/24 08:45 Resp 20 03/22/24 08:00 BP 141/62 H 03/22/24 08:45 Pulse Ox 97 03/22/24 09:06 O2 Del Method High Flow Nasal C annula 03/22/24 08:00 O2 Flow Rate 40 03/22/24 08:00 FiO2 40 03/22/24 08:00 Oxygen Flow Rate 2 03/15/24 21:10 BMI result Body Mass Index 24.4 lethargic, disoriented, ill appearing, on high flow Const: General: cooperative, healthy appearing and no acute distress Resp: Effort & Inspection: normal respiratory effort and able to speak in complete sentences Cardio: Rate: regular rate Peripheral pulses: Peripheral pulses 2+ throughout GI: Palpation (GI): Soft to palpation Skin: General skin exam: no rashes or lesions noted Extrem: Other: bandage clean dry and intact. [place] intact. No erythema or effusion. Calf supple nontender. Neurovascularly intact. Objective Data Active Medications Acetaminophen (Acetaminophen 325 Mg Tablet) 975 mg PO Q6H PRN PRN Reason: Pain, Moderate(Pain Scale 4-6) Last Admin: 03/21/24 09:11 Dose: 975 mg Documented By: IRAIDA Ampicillin Sodium/Sulbactam Sodium (Ampicillin Sodium/Sulbactam Na 1.5 Gm Vial) 1.5 gm IV Q6H [facility] Last Admin: 03/22/24 08:16 Dose: 1.5 gm Documented By: HOMAR Apixaban (Apixaban 2.5 Mg Tablet) 2.5 mg PO BID [facility] Last Admin: 03/22/24 08:44 Dose: Not Given Documented By: HOMAR Non-Admin Reason: NPO Divalproex Sodium (Divalproex Sodium Sprinkles 125 Mg ) 125 mg PO TID [facility] Last Admin: 03/22/24 08:44 Dose: Not Given Documented By: HOMAR Non-Admin Reason: NPO Fluoxetine HCl (Fluoxetine Hcl 20 Mg Capsule) 20 mg PO DAILY [facility] Last Admin: 03/22/24 08:45 Dose: Not Given Documented By: HOMAR Non-Admin Reason: NPO Memantine (Memantine Hcl 5 Mg Tablet) 5 mg PO DAILY [facility] Last Admin: 03/22/24 08:45 Dose: Not Given Documented By: HOMAR Non-Admin Reason: NPO Metoprolol Succinate (Metoprolol Succinate Er 12.5 Mg Halftab.Er.24h) 12.5 mg PO DAILY [facility]; Protocol Last Admin: 03/22/24 08:45 Dose: Not Given Documented By: HOMAR Non-Admin Reason: NPO Mirtazapine (Mirtazapine 7.5 Mg Tablet) 7.5 mg PO BEDTIME [facility] Last Admin: 03/21/24 21:57 Dose: Not Given Documented By: TIGRE Non-Admin Reason: Physician Held Med Morphine Sulfate (Morphine Sulfate 2 Mg/Ml Cartridge) 1 mg IVPUSH Q4H PRN; Protocol PRN Reason: mpain Last Admin: 03/22/24 00:38 Dose: 1 mg Documented By: TIGRE Olanzapine (Olanzapine 7.5 Mg Tablet) 7.5 mg PO BEDTIME [facility] Last Admin: 03/21/24 21:58 Dose: Not Given Documented By: TIGRE Non-Admin Reason: Physician Held Med Potassium Chloride (Potassium Chloride Er 20 Meq Tab.Er.Prt) 20 meq PO BID [facility] Last Admin: 03/22/24 08:45 Dose: Not Given Documented By: HOMAR Non-Admin Reason: NPO Sodium Chloride (0.9 % Sodium Chloride Flush 3 Ml Syringe) 3 ml IVFLUSH QSHIFT [facility] Last Admin: 03/22/24 08:25 Dose: 3 ml Documented By: HOMAR Valsartan (Valsartan 160 Mg Tablet) 160 mg PO DAILY [facility] Last Admin: 03/22/24 08:45 Dose: Not Given Documented By: HOMAR Non-Admin Reason: NPO Labs 03/22/24 07:32 03/22/24 07:32 Labs: Laboratory Results - last 24 hr 03/21/24 03/21/24 03/21/24 12:55 17:42 18:32 MCV MCH MCHC RDW Plt Count MPV Immature Gran % (Auto) Neut % (Auto) Lymph % (Auto) [place] % (Auto) Eos % (Auto) Baso % (Auto) Lymph # (Auto) [place] # (Auto) Eos # (Auto) Baso # (Auto) Abs Immat Gran (auto) Absolute Neuts (auto) Absolute Nucleated RBC Nucleated RBC % (auto) O2 Saturation 92.0 ABG pH at Pt Temp 7.38 ABG pCO2 at Pt Temp 50 H ABG pO2 at Pt Temp 71 L ABG HCO3 30 H ABG Base Excess (Actual) 4.2 VBG pH VBG pCO2 VBG pO2 VBG HCO3 VBG O2 Saturation VBG Base Excess Anion Gap 20 Estim Creat Clear Calc 54.7 Estimated GFR > 60 POC Glucose 115 Random Glucose 105 Calcium 9.3 Phosphorus Magnesium 2.0 Troponin I High Sens 29.3 H Albumin 03/21/24 03/22/24 03/22/24 18:35 07:32 07:34 MCV 94.6 MCH 31.0 MCHC 32.8 RDW 14.4 Plt Count 239 MPV 11.0 Immature Gran % (Auto) 0.5 H Neut % (Auto) 78.3 H Lymph % (Auto) 10.4 L [place] % (Auto) 10.1 Eos % (Auto) 0.2 Baso % (Auto) 0.5 Lymph # (Auto) 1.4 [place] # (Auto) 1.3 H Eos # (Auto) 0.0 Baso # (Auto) 0.1 Abs Immat Gran (auto) 0.07 H Absolute Neuts (auto) 10.3 H Absolute Nucleated RBC 0.000 Nucleated RBC % (auto) 0.0 O2 Saturation ABG pH at Pt Temp ABG pCO2 at Pt Temp ABG pO2 at Pt Temp ABG HCO3 ABG Base Excess (Actual) VBG pH 7.33 7.49 H VBG pCO2 50 38 VBG pO2 63 55 VBG HCO3 27 H 29 H VBG O2 Saturation 87.0 90.0 VBG Base Excess 0.5 6.4 Anion Gap 17 Estim Creat Clear Calc 45.0 Estimated GFR > 60 POC Glucose Random Glucose 101 Calcium 8.9 Phosphorus 5.3 H Magnesium 2.1 Troponin I High Sens Albumin 2.8 L Assessment and Plan (1) Closed fracture of neck of left femur: Status: Acute Plan 88F PMH advanced dementia, hfref, chronic afib, htn, presented with fall complicated by left femoral neck fracture mechanical fall complciated by left femoral neck fracture pod 4 pt/ot when able Chronic atrial fibrillation eiliquis, metoprolol acute hypoxic respiratory failure and acute metabolic encephalopathy acute on chronic hfref and acute aspiration pneumonia npo, follow up camp guard on high flow - weaning as tolerated suctioning unasyn close to euvolemic now, will monitor of diuretics and fluids Hfref continue metoprolol Advanced dementia unspecified Continue memantine and olanzapine DVT prophylaxis-Eliquis Full code Reason for continued hospitalization: hypoxia Quality Stroke Does the patient have a stroke diagnosis?: No VTE Prior VTE?: No VTE Risk Level:: Medical - moderate - high VTE Device Contraindication: N/A - Device Ordered VTE Drug Contraindication: Treatment Not Indicated
--- NOTE | 2024-03-22 13:09 | MHC.SL.SWA ---
Speech Pathologist Impression: Risk of Aspiration Due to: Lethargy Neurological Condition History of Pneumonia Poor PO Intake Weak Cough Solid Food Consistency: Dietary Recommendations: Pureed (NDD1) Additional Modifications to Solid Foods: Oral Medication Intake: Crushed with Puree Please contact the pharmacy regarding appropriate crushable or liquid drug formulations that are available whenever modified delivery is recommended. Compensatory Strategies and Precautions to be Taken for Safe Swallow: Sitting Upright (90 deg) Liquids from Spoon Rate of Ingestion Change Oral Check Supervision While Eating and Drinking for Safe Swallow: Total Assistance (1:1) Swallowing Recommended Treatments: Compens. Strategy Educat. Recommendation for Speech: Inpatient Speech Therapy Comment: Recommend START diet of PUREE SOLIDS (NDD1) only. MEDS CRUSHED in PUREE. Pt will require 1:1 ASSIST. Hold PO if Pt demonstrates overt s/s of aspiration. LOCATOR SPECIALIST will follow daily. Timeline to reassess: PRN Electrical Line Splicer Clinican/Clinical Fellow: No Supervisory Statement: I have reviewed and agree with the student/clinical fellow's documentation: N/A Speech Language Pathologist: Hosea Mejia M.A., CCC-LOCATOR SPECIALIST
[2024-03-22] MEDS: Divalproex Sodium Sprinkles 125 MG CAP.DR.SPR PO ×2 (14:26→20:06)
[2024-03-22] MEDS: Metoprolol Succinate ER 12.5 MG HALFTAB.ER.24H PO (14:26)
--- NOTE | 2024-03-22 14:27 | PC.RT ---
pt on minimal setting on h\High FLow 30Liters and 30% fi02. No resp distress. Pt then switched to 4 l [place] Nasal Cannula. Yodit well Sats 94% HR 111. RN aware of discontinuation of Highflow and 4 liters Velez applied.
[2024-03-22] MEDS: Apixaban 2.5 MG TABLET PO (20:05)
[2024-03-22] MEDS: OLANZapine 7.5 MG TABLET PO (20:05)
[2024-03-22] MEDS: Potassium Chloride ER 20 MEQ TAB.ER.PRT PO (20:05)
[2024-03-22] MEDS: Mirtazapine 7.5 MG TABLET PO (20:06)
[2024-03-23] VITALS (11 sets, daily range): BP systolic 120–139; BP diastolic 55–83; PULSE 95–145; RESP 19–20; TEMP 36.2–38.2; O2SAT 90–97
[2024-03-23] MEDS: Morphine Sulfate 2 MG/ML CARTRIDGE 1 MG IVPUSH (01:10)
[2024-03-23] MEDS: OLANZapine 10 MG VIAL IM (02:42)
[2024-03-23] MEDS: Metoprolol Tartrate 5 MG/5 ML VIAL IVPUSH ×3 (03:23→17:11)
[2024-03-23] MEDS: Memantine HCl 5 MG TABLET PO (08:06)
[2024-03-23] MEDS: Divalproex Sodium Sprinkles 125 MG CAP.DR.SPR PO ×3 (08:06→20:04)
[2024-03-23] MEDS: Valsartan 160 MG TABLET PO (08:06)
[2024-03-23] MEDS: Apixaban 2.5 MG TABLET PO ×2 (08:06→20:03)
[2024-03-23] MEDS: FLUoxetine HCl 20 MG CAPSULE PO (08:06)
[2024-03-23] MEDS: 0.9 % Sodium Chloride Flush 3 ML SYRINGE IVFLUSH ×3 (08:07→20:02)
[2024-03-23] MEDS: Metoprolol Succinate ER 12.5 MG HALFTAB.ER.24H PO (08:10)
[2024-03-23 08:31] LABS: Hematocrit 40.2 % (37.0-47.0); Mean Corpuscular HGB Conc 32.3 g/dl (31.0-35.0); Mean Corpuscular Hemoglobin 30.7 pg (27.0-33.0); Mean Platelet Volume 11.1 fL (9.4-12.3); Platelet Count 295 X10*3/uL (160-400); Red Blood Count 4.23 X10*6/uL (4.20-5.50); Red Cell Distribution Width 14.6 % (11.0-16.0); White Blood Count 14.6 X10*3/uL (4.8-10.8)
[2024-03-23 08:52] LABS: Anion Gap 19 (12-20); Blood Urea Nitrogen 35 mg/dL (9-16); Calcium 9.5 mg/dL (8.4-10.2); Carbon Dioxide 24 mmol/L (22-29); Chloride 108 mmol/L (96-108); Creatinine Clr Calc Pharmacy 55.6; Estimated Glomerular Filt Rate > 60; Glucose Fasting 114 mg/dL (60-99); Magnesium 2.2 mg/dL (1.6-2.6); Potassium 4.3 mmol/L (3.3-5.1); Sodium 147 mmol/L (135-145)
--- NOTE | 2024-03-23 13:03 | HO.PM.IMPN ---
Subjective Subjective Date of Service: 03/23/24 Interval History: Seen and evaluated this morning more alert and interactive In AFib w rvr no reported overnight events Review of Systems Review of Systems: Yes all other systems are reviewed and are negative Physical Exam Vital Signs: Vital Signs: Last Vital Signs Temp 98.6 F 03/23/24 08:00 Pulse 145 H 03/23/24 10:41 Resp 20 03/23/24 08:00 BP 138/61 03/23/24 08:10 Pulse Ox 96 03/23/24 10:41 O2 Del Method Nasal Cannula 03/23/24 08:00 O2 Flow Rate 4 03/23/24 08:00 FiO2 60 03/23/24 04:00 Oxygen Flow Rate 2 03/15/24 21:10 BMI result Body Mass Index 24.4 Const: Other: Constitutional : Awake, interactive, in mild resp. distress Neck : Normal inspection, Supple Cardiovascular : irregular irregular, no JVP, trace lower extremity edema Respiratory : decreased bilateral air entry, basal fine crackles, scattrered wheezes Gastrointestinal: soft, lax, Normal bowel sounds, Non tender Skin : Warm, Dry Neurological : Alert & oriented x3, No focal deficit Objective Data Active Medications Acetaminophen (Acetaminophen 325 Mg Tablet) 975 mg PO Q6H PRN PRN Reason: Pain, Moderate(Pain Scale 4-6) Last Admin: 03/21/24 09:11 Dose: 975 mg Documented By: IRAIDA Ampicillin Sodium/Sulbactam Sodium (Ampicillin Sodium/Sulbactam Na 1.5 Gm Vial) 1.5 gm IV Q6H [facility] Last Admin: 03/23/24 06:47 Dose: 1.5 gm Documented By: TIGRE Apixaban (Apixaban 2.5 Mg Tablet) 2.5 mg PO BID [facility] Last Admin: 03/23/24 08:06 Dose: 2.5 mg Documented By: HOMAR Divalproex Sodium (Divalproex Sodium Sprinkles 125 Mg ) 125 mg PO TID [facility] Last Admin: 03/23/24 08:06 Dose: 125 mg Documented By: HOAMR Fluoxetine HCl (Fluoxetine Hcl 20 Mg Capsule) 20 mg PO DAILY [facility] Last Admin: 03/23/24 08:06 Dose: 20 mg Documented By: HOMAR Memantine (Memantine Hcl 5 Mg Tablet) 5 mg PO DAILY [facility] Last Admin: 03/23/24 08:06 Dose: 5 mg Documented By: HOMAR Metoprolol Succinate (Metoprolol Succinate Er 12.5 Mg Halftab.Er.24h) 12.5 mg PO DAILY [facility]; Protocol Last Admin: 03/23/24 08:10 Dose: 12.5 mg Documented By: HOMAR Mirtazapine (Mirtazapine 7.5 Mg Tablet) 7.5 mg PO BEDTIME [facility] Last Admin: 03/22/24 20:06 Dose: 7.5 mg Documented By: TIGRE Morphine Sulfate (Morphine Sulfate 2 Mg/Ml Cartridge) 1 mg IVPUSH Q4H PRN; Protocol PRN Reason: mpain Last Admin: 03/23/24 01:10 Dose: 1 mg Documented By: TIGRE Olanzapine (Olanzapine 7.5 Mg Tablet) 7.5 mg PO BEDTIME [facility] Last Admin: 03/22/24 20:05 Dose: 7.5 mg Documented By: TIGRE Potassium Chloride (Potassium Chloride Er 20 Meq Tab.Er.Prt) 20 meq PO BID [facility] Last Admin: 03/23/24 11:14 Dose: Not Given Documented By: HOMAR Non-Admin Reason: cant crush med Sodium Chloride (0.9 % Sodium Chloride Flush 3 Ml Syringe) 3 ml IVFLUSH QSHIFT [facility] Last Admin: 03/23/24 08:07 Dose: 3 ml Documented By: HOMAR Valsartan (Valsartan 160 Mg Tablet) 160 mg PO DAILY [facility] Last Admin: 03/23/24 08:06 Dose: 160 mg Documented By: HOMAR Labs 03/23/24 08:09 03/23/24 08:09 Labs: Laboratory Results - last 24 hr 03/23/24 08:09 MCV 95.0 MCH 30.7 MCHC 32.3 RDW 14.6 Plt Count 295 MPV 11.1 Absolute Nucleated RBC 0.000 Nucleated RBC % (auto) 0.0 Anion Gap 19 Estim Creat Clear Calc 55.6 Estimated GFR > 60 Fasting Glucose 114 H Calcium 9.5 D Magnesium 2.2 Assessment and Plan (1) Atrial fibrillation: Status: Acute (2) Closed fracture of neck of left femur: Status: Acute (3) Aspiration pneumonia: Status: Acute (4) Acute respiratory failure with hypoxia: Status: Acute Plan 88F PMH advanced dementia, hfref, chronic afib, htn, presented with fall complicated by left femoral neck fracture mechanical fall complciated by left femoral neck fracture pod 5 PT\OT when able Chronic atrial fibrillation w RvR bouts of rapid ventricular response continue eiliquis, Increase metoprolol to 25 XL PRN MEtoprolol IV Acute hypoxic respiratory failure and acute metabolic encephalopathy 2/2 acute on chronic hfref and acute aspiration pneumonia improving slowly Advance diet per DEBURR OPERATOR Continue Unasyn Wean O2 down as tolerated suctioning monitor off diuretics and fluids Hfref continue metoprolol Advanced dementia unspecified Continue memantine and olanzapine DVT prophylaxis-Eliquis Full code Reason for continued hospitalization: hypoxia pending clinical improvement, PT evaluation and safe dispo Quality Stroke Does the patient have a stroke diagnosis?: No VTE Prior VTE?: No VTE Risk Level:: Medical - moderate - high VTE Device Contraindication: N/A - Device Ordered VTE Drug Contraindication: Treatment Not Indicated
--- NOTE | 2024-03-23 14:53 | MHC.SL.SWA ---
Speech Pathologist Impression: Risk of Aspiration Due to: Lethargy Neurological Condition History of Pneumonia Poor PO Intake Weak Cough Dysphasia Diet Status: Recommend continue on current diet of puree with PUDDING THICK juice by tsp only, pills crushed in puree. Liquid Consistency and Strategies for Safe Swallow: Liquid Intake Recommendation: Pudding Thick Liquid Intake Strategies: Liquids by Teaspoon Only Solid Food Consistency: Dietary Recommendations: Pureed (NDD1) Additional Modifications to Solid Foods: Patient requires a one to one feed, with attention given to positioning (add pillows to bring head forward while eating), and cuing to periodically cough after swallow to clear any residual. Assure that liquid consistencies are at Pudding Thick consistency , request either additional thickener from GSR or add apple sauce to make adequately thick if more at a honey consistency. Discontinue with excessive coughing, upper airway noise, drop in 02 sats (clinical signs of aspiration). CROWN ATTACHER will continue to follow. Oral Medication Intake: Crushed with Puree Please contact the pharmacy regarding appropriate crushable or liquid drug formulations that are available whenever modified delivery is recommended. Compensatory Strategies and Precautions to be Taken for Safe Swallow: Sitting Upright (90 deg) Chin Tuck No Straw Liquids from Spoon Rate of Ingestion Change Supervision While Eating and Drinking for Safe Swallow: Total Assistance (1:1) Foods to Avoid: Swallowing Recommended Treatments: Compens. Strategy Educat. Recommendation for Speech: Inpatient Speech Therapy Comment: Patient was seen at lunch for toleration of recommended diet. Patient was awake, alert, highly confused, but communicated that she did not want any food but would accept juice. Head of bed was repositioned so that she was sitting up right, with patient registering some confusion about the positioning equipment that were in place for her legs. Patient was given tsp amounts of pudding thick juice, which was slightly loose for this consistency, but close to pudding. Patient was able to strip spoon, produce a timely oral transit, mild delay of swallow, reduced laryngeal elevation. Initially patient raised chin and tilted head back on each tsp, and did not respond reliably to cues to bring head forward, so CROWN ATTACHER added pillows to keep head in a more safe and stable position. After several tsps, patient demonstrated a wet and noisy upper airway, coughed several times, then was cued to swallow, which appeared to clear the airway. Patient was given a cup and a half of pudding thick juice, with episodes of coughing and clearing her airway throughout administering the juice. Recommend continue on current diet of puree with PUDDING THICK juice by tsp only, pills crushed in puree. Patient requires a one to one feed, with attention given to positioning (add pillows to bring head forward while eating), and cuing to periodically cough after swallow to clear any residual. Assure that liquid consistencies are at Pudding Thick consistency , request either additional thickener from GSR or add apple sauce to make adequately thick if more at a honey consistency. Discontinue with excessive coughing, upper airway noise, drop in 02 sats (clinical signs of aspiration). CROWN ATTACHER will continue to follow. Frequency/Duration: Date Range for Service Req: Timeline to reassess: PRN Network Operations Center Engineer Clinican/Clinical Fellow: No Supervisory Statement: I have reviewed and agree with the student/clinical fellow's documentation: N/A Speech Language Pathologist: Rosy Tay M.A., CCC-CROWN ATTACHER
--- NOTE | 2024-03-23 15:10 | MHC.CM.PN ---
EMR reviewed and per MD rounds, pt is not medically cleared for discharge due to management of hypoxia.
[2024-03-23] MEDS: Metoprolol Tartrate 12.5 MG HALFTAB PO ×2 (17:18→20:03)
[2024-03-23] MEDS: Acetaminophen 325 MG TABLET 650 MG PO (20:03)
[2024-03-23] MEDS: Mirtazapine 7.5 MG TABLET PO (20:03)
[2024-03-23] MEDS: OLANZapine 7.5 MG TABLET PO (20:03)
--- NOTE | 2024-03-23 20:05 | PC.NURSE ---
Assumed care of patient at 19:15. Pt seen this admission s/p fall with left hip fx POD #5 today with stay c/b afib rvr, hypoxic respiratory failure 2/2 acute on chronic CHF exaceration and aspiration pna. Pt mildly febrile 100.8 and tachycardic 110's-120's in afib on evening vitals. Covering Dr. Phillips notified, 650mg prn tylenol ordered and given, BCx2 and lactic ordered and drawn, pending results at this time. Pt has advanced dementia per chart review, A&Ox1-2 this evening. On pureed/pudding thick diet as ordered with pills crushed in pudding and aspiration precautions in place. Scheduled KCl po unable to be crushed as per above. This was K reviewed 4.3 with MD orders to hold this med. High falls measures and in-room camera continues. Plan of care in place and ongoing.
[2024-03-23 21:16] LABS: Lactic Acid 2.5 mmol/L (0.5-2.0)
[2024-03-23 22:31] LABS: Reflex Lactate? Lactic Acid Added
[2024-03-23 23:11] LABS: ~Lactic Acid-LAB USE ONLY 1.3 mmol/L (0.5-2.0)
[2024-03-24] VITALS (8 sets, daily range): BP systolic 146–187; BP diastolic 58–109; PULSE 73–120; RESP 17–20; TEMP 36.1–36.5; O2SAT 93–98
[2024-03-24] MEDS: LORazepam 2 MG/ML VIAL 1 MG IVPUSH (01:41)
[2024-03-24 06:56] LABS: Hematocrit 37.2 % (37.0-47.0); Mean Corpuscular HGB Conc 32.3 g/dl (31.0-35.0); Mean Corpuscular Hemoglobin 30.4 pg (27.0-33.0); Mean Corpuscular Volume 94.2 fL (80.0-98.0); Mean Platelet Volume 10.8 fL (9.4-12.3); Platelet Count 286 X10*3/uL (160-400); Red Blood Count 3.95 X10*6/uL (4.20-5.50); Red Cell Distribution Width 14.4 % (11.0-16.0); White Blood Count 15.7 X10*3/uL (4.8-10.8)
[2024-03-24 07:12] LABS: Anion Gap 16 (12-20); Blood Urea Nitrogen 37 mg/dL (9-16); Calcium 9.5 mg/dL (8.4-10.2); Carbon Dioxide 28 mmol/L (22-29); Chloride 109 mmol/L (96-108); Creatinine Clr Calc Pharmacy 48.5; Estimated Glomerular Filt Rate > 60; Glucose Random 111 mg/dL (60-115); Sodium 149 mmol/L (135-145)
[2024-03-24] MEDS: Dextrose 5 % 1,000 ML 125 ML IVCONT ×2 (08:37→18:09)
[2024-03-24] MEDS: 0.9 % Sodium Chloride Flush 3 ML SYRINGE IVFLUSH ×2 (08:39→15:27)
--- NOTE | 2024-03-24 09:19 | PC.RT ---
Nurse request RT to evaluate for airway clearence. pt noted to be lethargic, diff to arouse on 4 lpm n/c. Pt noted to have poor cough, loose sec. RT oral sxn for large thick clear/pale yellow sec. Diff obtaining spo2, place forehead probe on and with dynamap spo2 noted 96%. Pt rr < 20 and no inc wob noted at this time. RT concerned pt could be aspirating, nurse aware.
--- NOTE | 2024-03-24 09:36 | PC.NURSE ---
pt too lethargic and fatigued to take morning medications. MD made aware.
--- NOTE | 2024-03-24 11:15 | HO.PM.IMPN ---
Subjective Subjective Date of Service: 03/24/24 Interval History: Seen and evaluated this morning More altered this morning, difficult to arouse Na of 149 Heart rate better controlled but still elevated in RvR no reported overnight events Review of Systems Review of Systems: Yes Unobtainable due to mental status Physical Exam Vital Signs: Vital Signs: Last Vital Signs Temp 97.0 F 03/24/24 11:12 Pulse 88 03/24/24 11:12 Resp 20 03/24/24 11:12 BP 146/58 H 03/24/24 11:12 Pulse Ox 97 03/24/24 11:12 O2 Del Method Nasal Cannula 03/24/24 11:12 O2 Flow Rate 4 03/24/24 11:12 FiO2 60 03/23/24 04:00 Oxygen Flow Rate 2 03/15/24 21:10 BMI result Body Mass Index 24.4 Const: Other: Constitutional : obtunded, in mild resp. distress Neck : Normal inspection, Supple Cardiovascular : irregular irregular, no JVP, trace lower extremity edema Respiratory : decreased bilateral air entry, basal fine crackles, scattrered wheezes , on O2 supplement Gastrointestinal: soft, lax, Normal bowel sounds, Non tender Skin : Warm, Dry Neurological : altered, moving all extremities, No focal deficit Objective Data Active Medications Acetaminophen (Acetaminophen 325 Mg Tablet) 975 mg PO Q6H PRN PRN Reason: Pain, Moderate(Pain Scale 4-6) Last Admin: 03/21/24 09:11 Dose: 975 mg Documented By: IRAIDA Acetaminophen (Acetaminophen 325 Mg Tablet) 650 mg PO Q4H PRN PRN Reason: Fever Last Admin: 03/23/24 20:03 Dose: 650 mg Documented By: GERSON Ampicillin Sodium/Sulbactam Sodium (Ampicillin Sodium/Sulbactam Na 1.5 Gm Vial) 1.5 gm IV Q6H [facility] Last Admin: 03/24/24 08:37 Dose: 1.5 gm Documented By: MILAGRO Apixaban (Apixaban 2.5 Mg Tablet) 2.5 mg PO BID [facility] Last Admin: 03/24/24 09:17 Dose: Not Given Documented By: MILAGRO Non-Admin Reason: pt too fatigued Divalproex Sodium (Divalproex Sodium Sprinkles 125 Mg ) 125 mg PO TID [facility] Last Admin: 03/24/24 09:17 Dose: Not Given Documented By: MILAGRO Non-Admin Reason: pt too fatigued Fluoxetine HCl (Fluoxetine Hcl 20 Mg Capsule) 20 mg PO DAILY [facility] Last Admin: 03/24/24 09:18 Dose: Not Given Documented By: MILAGRO Non-Admin Reason: pt tooo fatigued Dextrose (D5w) 1,000 mls @ 125 mls/hr IVCONT .Q8H [facility] Stop: 03/24/24 23:29 Last Admin: 03/24/24 08:37 Dose: 125 mls/hr Documented By: MILAGRO Memantine (Memantine Hcl 5 Mg Tablet) 5 mg PO DAILY [facility] Last Admin: 03/24/24 09:18 Dose: Not Given Documented By: MILAGRO Non-Admin Reason: pt too fatigued Metoprolol Succinate (Metoprolol Succinate Er 25 Mg Tab.Er.24h) 25 mg PO DAILY [facility]; Protocol Last Admin: 03/24/24 09:18 Dose: Not Given Documented By: MILAGRO Non-Admin Reason: pt too fatigued Metoprolol Tartrate (Metoprolol Tartrate 5 Mg/5 Ml Vial) 5 mg IVPUSH Q4H PRN; Protocol PRN Reason: Heart Rate >130 Last Admin: 03/23/24 17:11 Dose: 5 mg Documented By: HOMAR Metoprolol Tartrate (Metoprolol Tartrate 12.5 Mg Halftab) 12.5 mg PO QID [facility]; Protocol Last Admin: 03/24/24 09:19 Dose: Not Given Documented By: MILAGRO Non-Admin Reason: pt too fatigued Mirtazapine (Mirtazapine 7.5 Mg Tablet) 7.5 mg PO BEDTIME [facility] Last Admin: 03/23/24 20:03 Dose: 7.5 mg Documented By: GERSON Morphine Sulfate (Morphine Sulfate 2 Mg/Ml Cartridge) 1 mg IVPUSH Q4H PRN; Protocol PRN Reason: mpain Last Admin: 03/23/24 01:10 Dose: 1 mg Documented By: TIGRE Olanzapine (Olanzapine 7.5 Mg Tablet) 7.5 mg PO BEDTIME [facility] Last Admin: 03/23/24 20:03 Dose: 7.5 mg Documented By: GERSON Sodium Chloride (0.9 % Sodium Chloride Flush 3 Ml Syringe) 3 ml IVFLUSH QSHIFT [facility] Last Admin: 03/24/24 08:39 Dose: 3 ml Documented By: MILAGRO Valsartan (Valsartan 80 Mg Tablet) 80 mg PO DAILY [facility] Last Admin: 03/24/24 09:19 Dose: Not Given Documented By: MILAGRO Non-Admin Reason: pt too fatigued Labs 03/24/24 06:42 03/24/24 06:42 Labs: Laboratory Results - last 24 hr 03/23/24 03/23/24 03/24/24 20:12 22:49 06:42 MCV 94.2 MCH 30.4 MCHC 32.3 RDW 14.4 Plt Count 286 MPV 10.8 Absolute Nucleated RBC 0.000 Nucleated RBC % (auto) 0.0 Anion Gap 16 Estim Creat Clear Calc 48.5 Estimated GFR > 60 Random Glucose 111 Lactic Acid 2.5 H* Lactic Acid F/U @ 2Hr 1.3 Calcium 9.5 Assessment and Plan (1) Acute respiratory failure with hypoxia: Status: Acute (2) Aspiration pneumonia: Status: Acute (3) Acute hypernatremia: Status: Acute (4) Toxic metabolic encephalopathy: Status: Acute Plan 88F PMH advanced dementia, hfref, chronic afib, htn, presented with fall complicated by left femoral neck fracture Acute Toxic metabolic encephalopathy Likely related to MEdications, Hypernatremia and inpatient delerium Hold Namenda correct NA recurrent reorientation Acute Hypernatremia Na of 149 this morning Start D5W encourage water intake Follow BMP mechanical fall complciated by left femoral neck fracture PT\OT when able Chronic atrial fibrillation w RvR bouts of rapid ventricular response continue eiliquis, Increase metoprolol to 25 XL PRN MEtoprolol IV\PO if alert Acute hypoxic respiratory failure and acute metabolic encephalopathy 2/2 acute on chronic hfref and acute aspiration pneumonia improving slowly Advance diet per BACKUP ADMINISTRATIVE COORDINATOR Continue Unasyn Wean O2 down as tolerated suctioning monitor off diuretics and fluids Hfref continue metoprolol Advanced dementia unspecified Continue memantine and olanzapine DVT prophylaxis-Eliquis Full code Reason for continued hospitalization: hypoxia pending clinical improvement, PT evaluation and safe dispo Quality Stroke Does the patient have a stroke diagnosis?: No VTE Prior VTE?: No VTE Risk Level:: Medical - moderate - high VTE Device Contraindication: N/A - Device Ordered VTE Drug Contraindication: Treatment Not Indicated
--- NOTE | 2024-03-24 11:52 | MHC.SL.SWA ---
Speech Pathologist Impression: Risk of aspiration, oropharyngeal dysphagia Risk of Aspiration Due to: Lethargy Neurological Condition History of Pneumonia Poor PO Intake Weak Cough Dysphasia Diet Status:NPO Liquid Consistency and Strategies for Safe Swallow: Liquid Intake Recommendation: NPO Liquid Intake Strategies: Liquids by Teaspoon Only Solid Food Consistency: Dietary Recommendations: NPO Additional Modifications to Solid Foods: Patient is more lethargic, with very weak cough and absent swallow. Recommend DOWNGRADE to NPO strict. Notified MD, RN, RD via [place] Message. Elevate HoB at least 30 degrees and provide frequent oral care for hygiene and comfort. SEO ANALYST to re-evaluate tomorrow in the a.m. if appropriate. Oral Medication Intake: NPO Please contact the pharmacy regarding appropriate crushable or liquid drug formulations that are available whenever modified delivery is recommended. Supervision While Eating and Drinking for Safe Swallow: PO with SEO ANALYST Swallowing Recommended Treatments: Thermal Stimulation Gustatory Stimulation Recommendation for Speech: Inpatient Speech Therapy Medical Physics Teacher Clinican/Clinical Fellow: No Supervisory Statement: I have reviewed and agree with the student/clinical fellow's documentation: N/A Speech Language Pathologist: Andra Barfield M.A., [facility]-SEO ANALYST
[2024-03-24] MEDS: Metoprolol Tartrate 5 MG/5 ML VIAL IVPUSH (13:55)
[2024-03-24 14:35] LABS: Anion Gap 16 (12-20); Blood Urea Nitrogen 34 mg/dL (9-16); Calcium 9.3 mg/dL (8.4-10.2); Carbon Dioxide 26 mmol/L (22-29); Chloride 107 mmol/L (96-108); Creatinine Clr Calc Pharmacy 56.4; Estimated Glomerular Filt Rate > 60; Glucose Random 90 mg/dL (60-115); Potassium 3.9 mmol/L (3.3-5.1); Sodium 145 mmol/L (135-145)
[2024-03-24] MEDS: Labetalol HCL 100 MG/20 ML VIAL 10 MG IVPUSH ×2 (14:39→15:26)
--- NOTE | 2024-03-24 15:17 | MHC.CM.PN ---
[facility] has offered pt a STR bed, anticipated discharge on 03/25.
[2024-03-24] MEDS: OLANZapine 10 MG VIAL 5 MG IM (21:55)
[2024-03-24] MEDS: Morphine Sulfate 2 MG/ML CARTRIDGE 1 MG IVPUSH (22:01)
[2024-03-25 03:34] VITALS: BP 129/67; PULSE 90; RESP 18; TEMP 36.1; O2SAT 100
[2024-03-25] MEDS: 0.9 % Sodium Chloride Flush 3 ML SYRINGE IVFLUSH ×3 (08:02→22:26)
[2024-03-25 10:11] LABS: Anion Gap 15 (12-20); Blood Urea Nitrogen 22 mg/dL (9-16); Calcium 9.3 mg/dL (8.4-10.2); Carbon Dioxide 27 mmol/L (22-29); Chloride 104 mmol/L (96-108); Estimated Glomerular Filt Rate > 60; Glucose Random 97 mg/dL (60-115); Potassium 3.6 mmol/L (3.3-5.1); Sodium 142 mmol/L (135-145)
--- NOTE | 2024-03-25 11:52 | MHC.SLORD ---
Speech Language Pathology Order Status: STAFF PHYSICAL THERAPIST attempted to see patient this morning for dysphagia tx. Patient nonresponsive to sternal rub, STAFF PHYSICAL THERAPIST was not able to wake patient, not appropriate at this time for PO trials. Patient is NPO due to aspiration risk.
[2024-03-25] MEDS: Metoprolol Tartrate 5 MG/5 ML VIAL IVPUSH (12:40)
[2024-03-25 12:58] VITALS: BP 148/70; PULSE 89; RESP 20; TEMP 36.7; O2SAT 94
[2024-03-25 14:16] VITALS: PULSE 98
--- NOTE | 2024-03-25 14:34 | P.PNIM_ITS ---
Subjective Subjective Date of Service: 03/25/24 Interval History: Seen and evaluated this morning remains altered this morning, difficult to arouse Na of 142 this morning Heart rate fluctuates and get elevated in RvR no reported overnight events Review of Systems Review of Systems: Yes Unobtainable due to mental status Physical Exam 2 Vital Signs: Vital Signs: Last Vital Signs Temp 98.0 F 03/25/24 12:58 Pulse 98 03/25/24 14:16 Resp 20 03/25/24 12:58 BP 148/70 H 03/25/24 12:58 Pulse Ox 94 03/25/24 12:58 O2 Del Method Room Air 03/25/24 12:58 O2 Flow Rate 4 03/25/24 03:34 FiO2 60 03/23/24 04:00 Oxygen Flow Rate 2 03/15/24 21:10 BMI result Body Mass Index 24.4 Const: Other: Constitutional : difficult to arousem comfortable, not in distress Neck : Normal inspection, Supple Cardiovascular : irregular irregular, no JVP, trace lower extremity edema Respiratory : fair bilateral air entry, fine crackles, no wheezes , on O2 supplement Gastrointestinal: soft, lax, Normal bowel sounds, Non tender Skin : Warm, Dry Neurological : altered but more responsive to stimuli, mumbles words, moving all extremities, No focal deficit Objective Data Active Medications Acetaminophen (Acetaminophen 325 Mg Tablet) 975 mg PO Q6H PRN PRN Reason: Pain, Moderate(Pain Scale 4-6) Last Admin: 03/21/24 09:11 Dose: 975 mg Documented By: IRAIDA Acetaminophen (Acetaminophen 325 Mg Tablet) 650 mg PO Q4H PRN PRN Reason: Fever Last Admin: 03/23/24 20:03 Dose: 650 mg Documented By: GERSON Ampicillin Sodium/Sulbactam Sodium (Ampicillin Sodium/Sulbactam Na 1.5 Gm Vial) 1.5 gm IV Q6H [facility] Last Admin: 03/25/24 14:14 Dose: 1.5 gm Documented By: TASHA Apixaban (Apixaban 2.5 Mg Tablet) 2.5 mg PO BID [facility] Last Admin: 03/25/24 08:15 Dose: Not Given Documented By: TASHA Non-Admin Reason: NPO Divalproex Sodium (Divalproex Sodium Sprinkles 125 Mg ) 125 mg PO TID [facility] Last Admin: 03/25/24 08:15 Dose: Not Given Documented By: TASHA Non-Admin Reason: NPO Fluoxetine HCl (Fluoxetine Hcl 20 Mg Capsule) 20 mg PO DAILY [facility] Last Admin: 03/25/24 08:15 Dose: Not Given Documented By: TASHA Non-Admin Reason: NPO Memantine (Memantine Hcl 5 Mg Tablet) 5 mg PO DAILY [facility] Last Admin: 03/24/24 09:18 Dose: Not Given Documented By: MILAGRO Non-Admin Reason: pt too fatigued Metoprolol Succinate (Metoprolol Succinate Er 25 Mg Tab.Er.24h) 25 mg PO DAILY [facility]; Protocol Last Admin: 03/25/24 08:16 Dose: Not Given Documented By: TASHA Non-Admin Reason: NPO Metoprolol Tartrate (Metoprolol Tartrate 5 Mg/5 Ml Vial) 5 mg IVPUSH Q4H PRN; Protocol PRN Reason: Heart Rate >130 Last Admin: 03/25/24 12:40 Dose: 5 mg Documented By: TASHA Metoprolol Tartrate (Metoprolol Tartrate 12.5 Mg Halftab) 12.5 mg PO QID [facility]; Protocol Last Admin: 03/25/24 12:36 Dose: Not Given Documented By: TASHA Non-Admin Reason: NPO Mirtazapine (Mirtazapine 7.5 Mg Tablet) 7.5 mg PO BEDTIME [facility] Last Admin: 03/24/24 21:52 Dose: Not Given Documented By: ELIANA Non-Admin Reason: NPO Morphine Sulfate (Morphine Sulfate 2 Mg/Ml Cartridge) 1 mg IVPUSH Q4H PRN; Protocol PRN Reason: mpain Last Admin: 03/24/24 22:01 Dose: 1 mg Documented By: ELIANA Olanzapine (Olanzapine 7.5 Mg Tablet) 7.5 mg PO BEDTIME [facility] Last Admin: 03/23/24 20:03 Dose: 7.5 mg Documented By: GERSON Olanzapine (Olanzapine 10 Mg Vial) 5 mg IM BEDTIME PRN PRN Reason: anxiety/restlessness Last Admin: 03/24/24 21:55 Dose: 5 mg Documented By: HO.BELANGB Sodium Chloride (0.9 % Sodium Chloride Flush 3 Ml Syringe) 3 ml IVFLUSH QSHIFT [facility] Last Admin: 03/25/24 08:02 Dose: 3 ml Documented By: BROZelda Valsartan (Valsartan 80 Mg Tablet) 80 mg PO DAILY [facility] Last Admin: 03/25/24 08:16 Dose: Not Given Documented By: TASHA Non-Admin Reason: NPO Labs 03/24/24 06:42 03/25/24 09:41 Labs: Laboratory Results - last 24 hr 03/24/24 03/25/24 13:55 09:41 Anion Gap 16 15 Estim Creat Clear Calc 56.4 64.0 Estimated GFR > 60 > 60 Random Glucose 90 97 Calcium 9.3 9.3 Microbiology Microbiology Results: Microbiology 03/23/24 20:19 Blood Culture - Preliminary Blood - Venous No growth after 24 hours. 03/23/24 20:19 Blood Culture - Preliminary Blood - Venous No growth after 24 hours. Assessment and Plan (1) Toxic metabolic encephalopathy: Status: Acute (2) Acute hypernatremia: Status: Acute (3) Acute respiratory failure with hypoxia: Status: Acute (4) Aspiration pneumonia: Status: Acute Plan 88F PMH advanced dementia, hfref, chronic afib, htn, presented with fall complicated by left femoral neck fracture Acute Toxic metabolic encephalopathy Likely related to MEdications, Hypernatremia and inpatient delerium Hold Namenda restart Valproate IV correct NA recurrent reorientation Acute Hypernatremia Na of 142 this morning Start D5LR now encourage water intake Follow BMP mechanical fall complciated by left femoral neck fracture PT\OT when able Chronic atrial fibrillation w RvR bouts of rapid ventricular response continue eiliquis, Increase metoprolol to 25 XL PRN MEtoprolol IV\PO if alert Acute hypoxic respiratory failure and acute metabolic encephalopathy 2/2 acute on chronic hfref and acute aspiration pneumonia improving slowly Advance diet per PLANNING ENGINEER, NPO now Continue Unasyn Wean O2 down as tolerated suctioning monitor off diuretics and fluids Hfref continue metoprolol Advanced dementia unspecified Continue memantine and olanzapine DVT prophylaxis-Eliquis Full code Reason for continued hospitalization: hypoxia pending clinical improvement, PT evaluation and safe dispo Quality Stroke Does the patient have a stroke diagnosis?: No VTE Prior VTE?: No VTE Risk Level:: Medical - moderate - high VTE Device Contraindication: N/A - Device Ordered VTE Drug Contraindication: Treatment Not Indicated
[2024-03-25] MEDS: Dextrose 5 % and Lactated Ring 1,000 ML 50 ML IVCONT (15:02)
[2024-03-25] MEDS: Valproic Acid (as Sodium Salt) 250 MG in Dextrose 5 % 50 ML 52.5 MG IV (15:38)
[2024-03-25 16:00] VITALS: BP 147/78; PULSE 89; RESP 17; TEMP 36.8; O2SAT 94
--- NOTE | 2024-03-25 16:07 | MHC.CM.PN ---
PT NOT MEDICALLY CLEARED DCP REMAINS STR, [facility] OFFERING A BED BLS TRANSPORT
--- NOTE | 2024-03-25 16:36 | MHC.SL.SWA ---
Speech Pathologist Impression: Risk of aspiration, oropharyngeal dysphagia Risk of Aspiration Due to: Lethargy Neurological Condition History of Pneumonia Poor PO Intake Weak Cough Dysphasia Diet Status: No change at this time Liquid Consistency and Strategies for Safe Swallow: Liquid Intake Recommendation: NPO Liquid Intake Strategies: Liquids by Teaspoon Only Solid Food Consistency: Dietary Recommendations: NPO Additional Modifications to Solid Foods: Overt s/s of aspiration noted with PO trials (puree, pudding thick, honey thick consistencies). Note repetitive tongue pumping, minimal laryngeal elevation, and multiple swallow attempts. Immediate gurgly cough and wet voice after swallowing. Recommend continue NPO at this time. Notified MD, RN, RD via [employer] Message. Elevate HoB at least 30 degrees and provide frequent oral care for hygiene and comfort. Patient may benefit from consultation with care team for alternate means of nutrition/hydration given prolonged NPO status. Oral Medication Intake: NPO Please contact the pharmacy regarding appropriate crushable or liquid drug formulations that are available whenever modified delivery is recommended. Supervision While Eating and Drinking for Safe Swallow: PO with PLANT TECHNICAL SPECIALIST Swallowing Recommended Treatments: Thermal Stimulation, Gustatory Stimulation Recommendation for Speech: Inpatient Speech Therapy Frequency/Duration: Date Range for Service Req: Timeline to reassess: PRN Internal Carver Clinican/Clinical Fellow: No Supervisory Statement: I have reviewed and agree with the student/clinical fellow's documentation: N/A Speech Language Pathologist: Andra Barfield M.A., [facility]-PLANT TECHNICAL SPECIALIST
--- NOTE | 2024-03-25 18:11 | PC.NURSE ---
Noticed discoloration to L heel and redness to R heel. [place] foam placed on L heel and elevated both feet with one pillow to minimize pressure. Patient resistive to care.
[2024-03-25 19:57] VITALS: BP 153/86; PULSE 105; RESP 18; TEMP 37.3
[2024-03-25] MEDS: Mirtazapine 7.5 MG TABLET PO (22:09)
[2024-03-25] MEDS: Apixaban 2.5 MG TABLET PO (22:09)
[2024-03-25] MEDS: Divalproex Sodium Sprinkles 125 MG CAP.DR.SPR PO (22:09)
[2024-03-25] MEDS: Metoprolol Tartrate 12.5 MG HALFTAB PO (22:22)
[2024-03-25 23:35] VITALS: BP 159/78; PULSE 94; RESP 18; TEMP 36.4; O2SAT 93
[2024-03-26 03:22] VITALS: BP 164/77; PULSE 116; RESP 20; TEMP 36.9; O2SAT 92
[2024-03-26 07:16] VITALS: BP 147/96; PULSE 89; RESP 20; TEMP 36.3; O2SAT 95
[2024-03-26 07:24] LABS: Hematocrit 34.5 % (37.0-47.0); Hemoglobin 11.5 g/dl (12.0-16.0); Mean Corpuscular HGB Conc 33.3 g/dl (31.0-35.0); Mean Corpuscular Hemoglobin 31.1 pg (27.0-33.0); Mean Corpuscular Volume 93.2 fL (80.0-98.0); Mean Platelet Volume 10.7 fL (9.4-12.3); Platelet Count 291 X10*3/uL (160-400); Red Cell Distribution Width 14.4 % (11.0-16.0); White Blood Count 13.6 X10*3/uL (4.8-10.8)
[2024-03-26 07:42] LABS: Prothrombin Time 66.2 SEC (11.1-13.3)
[2024-03-26 07:48] LABS: Alanine Aminotransferase 36 U/L (0-31); Albumin Level 2.6 g/dL (3.5-5.0); Alkaline Phosphatase 93 U/L (39-117); Anion Gap 14 (12-20); Aspartate Amino Transferase 60 U/L (5-31); Bilirubin Direct 0.3 mg/dL (0.0-0.5); Bilirubin Total 0.6 mg/dL (0.0-1.0); Blood Urea Nitrogen 18 mg/dL (9-16); Carbon Dioxide 27 mmol/L (22-29); Chloride 107 mmol/L (96-108); Creatinine Clr Calc Pharmacy 68.7; Estimated Glomerular Filt Rate > 60; Glucose Random 96 mg/dL (60-115); Potassium 3.3 mmol/L (3.3-5.1); Sodium 145 mmol/L (135-145); Total Protein 5.5 g/dL (6.5-8.0)
[2024-03-26 08:02] LABS: INTERNATIONAL NORM RATIO 5.4 (0.9-1.1)
[2024-03-26] MEDS: 0.9 % Sodium Chloride Flush 3 ML SYRINGE IVFLUSH ×2 (09:46→16:08)
--- NOTE | 2024-03-26 11:05 | HO.PM.IMPN ---
Subjective Subjective Date of Service: 03/26/24 Interval History: Seen and evaluated this morning remains altered this morning, difficult to arouse Na of 145 this morning Heart rate better controlled no reported overnight events Review of Systems Review of Systems: Yes Unobtainable due to mental status Physical Exam Vital Signs: Vital Signs: Last Vital Signs Temp 97.4 F 03/26/24 07:16 Pulse 89 03/26/24 07:16 Resp 20 03/26/24 07:16 BP 147/96 H 03/26/24 07:16 Pulse Ox 95 03/26/24 07:16 O2 Del Method Room Air 03/26/24 07:16 O2 Flow Rate 4 03/25/24 03:34 FiO2 60 03/23/24 04:00 Oxygen Flow Rate 2 03/15/24 21:10 BMI result Body Mass Index 24.4 Const: Other: Constitutional : difficult to arouse, looks comfortable and sound sleep, not in distress eye; responsive pupils Neck : Normal inspection, Supple Cardiovascular : irregular irregular, no JVP, trace lower extremity edema Respiratory : fair bilateral air entry, fine crackles, no wheezes , On RA Gastrointestinal: soft, lax, Normal bowel sounds, Non tender Skin : Warm, Dry Neurological : altered but more responsive to stimuli, mumbles words, moving all extremities Objective Data Active Medications Acetaminophen (Acetaminophen 325 Mg Tablet) 975 mg PO Q6H PRN PRN Reason: Pain, Moderate(Pain Scale 4-6) Last Admin: 03/21/24 09:11 Dose: 975 mg Documented By: IRAIDA Acetaminophen (Acetaminophen 325 Mg Tablet) 650 mg PO Q4H PRN PRN Reason: Fever Last Admin: 03/23/24 20:03 Dose: 650 mg Documented By: GERSON Ampicillin Sodium/Sulbactam Sodium (Ampicillin Sodium/Sulbactam Na 1.5 Gm Vial) 1.5 gm IV Q6H [facility] Last Admin: 03/26/24 09:45 Dose: 1.5 gm Documented By: CORBY Apixaban (Apixaban 2.5 Mg Tablet) 2.5 mg PO BID [facility] Last Admin: 03/26/24 09:34 Dose: Not Given Documented By: CORBY Non-Admin Reason: Physician Held Med Divalproex Sodium (Divalproex Sodium Sprinkles 125 Mg ) 125 mg PO TID [facility] Last Admin: 03/26/24 10:02 Dose: Not Given Documented By: CORBY Non-Admin Reason: Pt drowsy, NPO, not safe to take meds Fluoxetine HCl (Fluoxetine Hcl 20 Mg Capsule) 20 mg PO DAILY [facility] Last Admin: 03/26/24 10:02 Dose: Not Given Documented By: CORBY Non-Admin Reason: Pt drowsy, NPO, not safe to take meds Dextrose/Lactated Ringer's (D5lr) 1,000 mls @ 50 mls/hr IVCONT .Q20H [facility] Last Admin: 03/26/24 10:39 Dose: Not Given Documented By: CORBY Non-Admin Reason: IV Running Memantine (Memantine Hcl 5 Mg Tablet) 5 mg PO DAILY [facility] Last Admin: 03/24/24 09:18 Dose: Not Given Documented By: MILAGRO Non-Admin Reason: pt too fatigued Metoprolol Succinate (Metoprolol Succinate Er 25 Mg Tab.Er.24h) 25 mg PO DAILY [facility]; Protocol Last Admin: 03/26/24 10:03 Dose: Not Given Documented By: CORBY Non-Admin Reason: Pt drowsy, NPO, not safe to take meds Metoprolol Tartrate (Metoprolol Tartrate 5 Mg/5 Ml Vial) 5 mg IVPUSH Q4H PRN; Protocol PRN Reason: Heart Rate >130 Last Admin: 03/25/24 12:40 Dose: 5 mg Documented By: TASHA Metoprolol Tartrate (Metoprolol Tartrate 12.5 Mg Halftab) 12.5 mg PO QID [facility]; Protocol Last Admin: 03/26/24 10:03 Dose: Not Given Documented By: CORBY Non-Admin Reason: Pt drowsy, NPO, not safe to take meds Mirtazapine (Mirtazapine 7.5 Mg Tablet) 7.5 mg PO BEDTIME [facility] Last Admin: 03/25/24 22:09 Dose: 7.5 mg Documented By: FREDERICK Morphine Sulfate (Morphine Sulfate 2 Mg/Ml Cartridge) 1 mg IVPUSH Q4H PRN; Protocol PRN Reason: mpain Last Admin: 03/24/24 22:01 Dose: 1 mg Documented By: ELIANA Olanzapine (Olanzapine 7.5 Mg Tablet) 7.5 mg PO BEDTIME [facility] Last Admin: 03/23/24 20:03 Dose: 7.5 mg Documented By: GERSON Olanzapine (Olanzapine 10 Mg Vial) 5 mg IM BEDTIME PRN PRN Reason: anxiety/restlessness Last Admin: 03/24/24 21:55 Dose: 5 mg Documented By: ELIANA Sodium Chloride (0.9 % Sodium Chloride Flush 3 Ml Syringe) 3 ml IVFLUSH QSHIFT [facility] Last Admin: 03/26/24 09:46 Dose: 3 ml Documented By: CORBY Valsartan (Valsartan 80 Mg Tablet) 80 mg PO DAILY [facility] Last Admin: 03/26/24 10:03 Dose: Not Given Documented By: CORBY Non-Admin Reason: Pt drowsy, NPO, not safe to take meds Labs 03/26/24 07:11 03/26/24 07:11 Labs: Laboratory Results - last 24 hr 03/26/24 07:11 MCV 93.2 MCH 31.1 MCHC 33.3 RDW 14.4 Plt Count 291 MPV 10.7 Absolute Nucleated RBC 0.000 Nucleated RBC % (auto) 0.0 PT 66.2 H D INR 5.4 H* D Anion Gap 14 Estim Creat Clear Calc 68.7 Estimated GFR > 60 Random Glucose 96 Calcium 9.0 Total Bilirubin 0.6 Direct Bilirubin 0.3 AST 60 H ALT 36 H Alkaline Phosphatase 93 Total Protein 5.5 L Albumin 2.6 L Microbiology Microbiology Results: Microbiology 03/23/24 20:19 Blood Culture - Preliminary Blood - Venous No growth after 48 hours. 03/23/24 20:19 Blood Culture - Preliminary Blood - Venous No growth after 48 hours. Assessment and Plan (1) Toxic metabolic encephalopathy: Status: Acute (2) Acute hypernatremia: Status: Acute (3) Atrial fibrillation with rapid ventricular response: Status: Acute Plan 88F PMH advanced dementia, hfref, chronic afib, htn, presented with fall complicated by left femoral neck fracture Acute Toxic metabolic encephalopathy 2/2 MEdications, Hypernatremia and inpatient delerium Hold Namenda restart Valproate IV correct NA recurrent reorientation Avoid meds that might alter her mind get her up to recliner once alert ELECTROGALVANIZING MACHINE OPERATOR following, NPO for now Acute Hypernatremia Na of 145 continue D5LR now encourage water intake once more alert Follow BMP mechanical fall complciated by left femoral neck fracture PT\OT when able Chronic atrial fibrillation w RvR bouts of rapid ventricular response continue eiliquis, Increase metoprolol to 25 XL PRN MEtoprolol IV\PO if alert Acute hypoxic respiratory failure and acute metabolic encephalopathy 2/2 acute on chronic hfref and acute aspiration pneumonia improving slowly Advance diet per ELECTROGALVANIZING MACHINE OPERATOR, NPO now Continue Unasyn Wean O2 down as tolerated suctioning monitor off diuretics and fluids Hfref continue metoprolol Advanced dementia unspecified Continue memantine and olanzapine DVT prophylaxis-Eliquis Full code Reason for continued hospitalization: Toxic metabolic encephalpathy, NPO on IV fluids pending clinical improvement, PT evaluation and safe dispo Quality Stroke Does the patient have a stroke diagnosis?: No VTE Prior VTE?: No VTE Risk Level:: Medical - moderate - high VTE Device Contraindication: N/A - Device Ordered VTE Drug Contraindication: Treatment Not Indicated
[2024-03-26 11:47] LABS: VBG Base Excess 9.2 mmol/L; VBG HCO3 32 mmol/L (22-26); VBG pCO2 40 mmHg; VBG pH 7.51 (7.32-7.43); VBG pO2 38 mmHg
[2024-03-26 11:48] LABS: Venous Blood Gas Refer to POC result
[2024-03-26 11:53] LABS: Ammonia 25 umol/L (13-55)
[2024-03-26 15:28] VITALS: BP 166/86; PULSE 75; RESP 20; TEMP 36.6; O2SAT 93
[2024-03-26] MEDS: Metoprolol Tartrate 12.5 MG HALFTAB PO (16:12)
[2024-03-26] MEDS: Divalproex Sodium Sprinkles 125 MG CAP.DR.SPR PO (16:13)
[2024-03-26 19:40] VITALS: BP 155/90; PULSE 90; RESP 18; TEMP 36.6; O2SAT 94
[2024-03-27] VITALS (7 sets, daily range): BP systolic 98–174; BP diastolic 52–87; PULSE 76–122; RESP 18–20; TEMP 35.9–36.7; O2SAT 92–98
[2024-03-27] MEDS: Dextrose 5 % and Lactated Ring 1,000 ML 50 ML IVCONT (01:44)
[2024-03-27] MEDS: 0.9 % Sodium Chloride Flush 3 ML SYRINGE IVFLUSH ×4 (01:45→23:21)
[2024-03-27 08:45] LABS: Hematocrit 33.1 % (37.0-47.0); Hemoglobin 10.7 g/dl (12.0-16.0); Mean Corpuscular HGB Conc 32.3 g/dl (31.0-35.0); Mean Corpuscular Hemoglobin 30.2 pg (27.0-33.0); Mean Corpuscular Volume 93.5 fL (80.0-98.0); Mean Platelet Volume 10.8 fL (9.4-12.3); Platelet Count 316 X10*3/uL (160-400); Red Blood Count 3.54 X10*6/uL (4.20-5.50); Red Cell Distribution Width 14.5 % (11.0-16.0); White Blood Count 13.4 X10*3/uL (4.8-10.8)
[2024-03-27] MEDS: Valsartan 80 MG TABLET PO (08:48)
[2024-03-27] MEDS: Metoprolol Tartrate 12.5 MG HALFTAB PO ×2 (08:48→12:30)
[2024-03-27] MEDS: FLUoxetine HCl 20 MG CAPSULE PO (08:49)
[2024-03-27] MEDS: Metoprolol Succinate ER 25 MG TAB.ER.24H PO (08:49)
[2024-03-27] MEDS: Divalproex Sodium Sprinkles 125 MG CAP.DR.SPR PO ×3 (08:49→23:19)
[2024-03-27 08:59] LABS: Prothrombin Time 72.1 SEC (11.1-13.3)
[2024-03-27 09:09] LABS: Anion Gap 15 (12-20); Blood Urea Nitrogen 12 mg/dL (9-16); Calcium 8.9 mg/dL (8.4-10.2); Carbon Dioxide 26 mmol/L (22-29); Chloride 108 mmol/L (96-108); Creatinine Clr Calc Pharmacy 72.7; Estimated Glomerular Filt Rate > 60; Glucose Random 133 mg/dL (60-115); Sodium 146 mmol/L (135-145)
[2024-03-27 09:26] LABS: INTERNATIONAL NORM RATIO 5.9 (0.9-1.1)
--- NOTE | 2024-03-27 14:23 | P.PNIM_ITS ---
Subjective Subjective Date of Service: 03/27/24 Interval History: Seen and evaluated this morning Alert and interactive Na of 146 this morning no reported overnight events Review of Systems Review of Systems: Yes all other systems are reviewed and are negative Physical Exam 2 Vital Signs: Vital Signs: Last Vital Signs Temp 97.1 F 03/27/24 07:59 Pulse 76 03/27/24 12:30 Resp 20 03/27/24 12:30 BP 132/62 03/27/24 12:30 Pulse Ox 95 03/27/24 07:59 O2 Del Method Room Air 03/27/24 07:59 O2 Flow Rate 4 03/25/24 03:34 FiO2 60 03/23/24 04:00 Oxygen Flow Rate 2 03/15/24 21:10 BMI result Body Mass Index 24.4 Const: Other: Constitutional : awake, interactive, looks comfortable, not in distress Neck : Normal inspection, Supple Cardiovascular : irregular irregular, no JVP, trace lower extremity edema Respiratory : fair bilateral air entry, no crackles, no wheezes , On RA Gastrointestinal: soft, lax, Normal bowel sounds, Non tender Skin : Warm, Dry Neurological : Alert, oriented to self, sweetly confused otherwise, moving all extremities Objective Data Active Medications Acetaminophen (Acetaminophen 325 Mg Tablet) 975 mg PO Q6H PRN PRN Reason: Pain, Moderate(Pain Scale 4-6) Last Admin: 03/21/24 09:11 Dose: 975 mg Documented By: IRAIDA Acetaminophen (Acetaminophen 325 Mg Tablet) 650 mg PO Q4H PRN PRN Reason: Fever Last Admin: 03/23/24 20:03 Dose: 650 mg Documented By: GERSON Ampicillin Sodium/Sulbactam Sodium (Ampicillin Sodium/Sulbactam Na 1.5 Gm Vial) 1.5 gm IV Q6H [facility] Last Admin: 03/27/24 08:53 Dose: 1.5 gm Documented By: CORBY Apixaban (Apixaban 2.5 Mg Tablet) 2.5 mg PO BID [facility] Last Admin: 03/27/24 09:56 Dose: Not Given Documented By: CORBY Non-Admin Reason: Physician Held Med Divalproex Sodium (Divalproex Sodium Sprinkles 125 Mg ) 125 mg PO TID [facility] Last Admin: 05/05/24 08:49 Dose: 125 mg Documented By: CORBY Fluoxetine HCl (Fluoxetine Hcl 20 Mg Capsule) 20 mg PO DAILY [facility] Last Admin: 03/27/24 08:49 Dose: 20 mg Documented By: CORBY Dextrose/Lactated Ringer's (D5lr) 1,000 mls @ 50 mls/hr IVCONT .Q20H [facility] Last Admin: 03/27/24 01:44 Dose: 50 mls/hr Documented By: SMILEY Memantine (Memantine Hcl 5 Mg Tablet) 5 mg PO DAILY [facility] Last Admin: 03/24/24 09:18 Dose: Not Given Documented By: MILAGRO Non-Admin Reason: pt too fatigued Metoprolol Succinate (Metoprolol Succinate Er 25 Mg Tab.Er.24h) 25 mg PO DAILY [facility]; Protocol Last Admin: 03/27/24 08:49 Dose: 25 mg Documented By: CORBY Metoprolol Tartrate (Metoprolol Tartrate 5 Mg/5 Ml Vial) 5 mg IVPUSH Q4H PRN; Protocol PRN Reason: Heart Rate >130 Last Admin: 03/25/24 12:40 Dose: 5 mg Documented By: TASHA Metoprolol Tartrate (Metoprolol Tartrate 12.5 Mg Halftab) 12.5 mg PO QID [facility]; Protocol Last Admin: 03/27/24 12:30 Dose: 12.5 mg Documented By: CORBY Mirtazapine (Mirtazapine 7.5 Mg Tablet) 7.5 mg PO BEDTIME [facility] Last Admin: 03/26/24 21:21 Dose: Not Given Documented By: LAURA Non-Admin Reason: unsafe, drowsy Olanzapine (Olanzapine 7.5 Mg Tablet) 7.5 mg PO BEDTIME [facility] Last Admin: 03/23/24 20:03 Dose: 7.5 mg Documented By: GERSON Olanzapine (Olanzapine 10 Mg Vial) 5 mg IM BEDTIME PRN PRN Reason: anxiety/restlessness Last Admin: 03/24/24 21:55 Dose: 5 mg Documented By: ELIANA Sodium Chloride (0.9 % Sodium Chloride Flush 3 Ml Syringe) 3 ml IVFLUSH QSHIFT [facility] Last Admin: 03/27/24 08:49 Dose: 3 ml Documented By: CORBY Valsartan (Valsartan 80 Mg Tablet) 80 mg PO DAILY [facility] Last Admin: 03/27/24 08:48 Dose: 80 mg Documented By: CORBY Labs 03/27/24 08:29 03/27/24 08:29 Labs: Laboratory Results - last 24 hr 03/27/24 08:29 MCV 93.5 MCH 30.2 MCHC 32.3 RDW 14.5 Plt Count 316 MPV 10.8 Absolute Nucleated RBC 0.000 Nucleated RBC % (auto) 0.0 PT 72.1 H INR 5.9 H* Anion Gap 15 Estim Creat Clear Calc 72.7 Estimated GFR > 60 Random Glucose 133 H Calcium 8.9 Assessment and Plan (1) Atrial fibrillation with rapid ventricular response: Status: Acute (2) Toxic metabolic encephalopathy: Status: Acute (3) Acute hypernatremia: Status: Acute Plan 88F PMH advanced dementia, hfref, chronic afib, htn, presented with fall complicated by left femoral neck fracture Acute Toxic metabolic encephalopathy 2/2 MEdications, Hypernatremia and inpatient delerium Improving Hold Namenda correct NA recurrent reorientation Avoid meds that might alter her mind get her up to recliner once able COMPLIANCE ASSOCIATE following passed bedside screening swallow test, start pureed Acute Hypernatremia Na of 146 DC D5LR and Start D5W encourage water intake once more alert Follow BMP Acute hypokalemia give replacement , follow BMP mechanical fall complciated by left femoral neck fracture PT\OT when able Chronic atrial fibrillation w RvR bouts of rapid ventricular response continue eiliquis, Increase metoprolol to 25 XL PRN MEtoprolol IV\PO if alert Acute hypoxic respiratory failure and acute metabolic encephalopathy 2/2 acute on chronic hfref and acute aspiration pneumonia improving slowly Advance diet per COMPLIANCE ASSOCIATE, NPO now Continue Unasyn Wean O2 down as tolerated suctioning monitor off diuretics and fluids Hfref continue metoprolol Advanced dementia unspecified Continue memantine and olanzapine DVT prophylaxis-Eliquis Full code Reason for continued hospitalization: Toxic metabolic encephalpathy, NPO on IV fluids pending clinical improvement, PT evaluation and safe dispo Quality Stroke Does the patient have a stroke diagnosis?: No VTE Prior VTE?: No VTE Risk Level:: Medical - moderate - high VTE Device Contraindication: N/A - Device Ordered VTE Drug Contraindication: Treatment Not Indicated
[2024-03-27] MEDS: Dextrose 5 % 1,000 ML 125 ML IVCONT (14:54)
[2024-03-27] MEDS: Apixaban 2.5 MG TABLET PO (23:19)
[2024-03-27] MEDS: Mirtazapine 7.5 MG TABLET PO (23:19)
[2024-03-28 02:12] VITALS: BP 144/87; PULSE 96; RESP 18; TEMP 37; O2SAT 98
[2024-03-28 07:25] LABS: Hematocrit 31.5 % (37.0-47.0); Hemoglobin 10.4 g/dl (12.0-16.0); Mean Corpuscular Hemoglobin 30.1 pg (27.0-33.0); Mean Platelet Volume 11.1 fL (9.4-12.3); Platelet Count 352 X10*3/uL (160-400); Red Blood Count 3.46 X10*6/uL (4.20-5.50); Red Cell Distribution Width 14.6 % (11.0-16.0); White Blood Count 13.3 X10*3/uL (4.8-10.8)
[2024-03-28 07:41] VITALS: BP 144/76; PULSE 75; RESP 20; TEMP 36.1; O2SAT 96
[2024-03-28 09:50] VITALS: BP 152/74; PULSE 66
[2024-03-28] MEDS: Metoprolol Succinate ER 25 MG TAB.ER.24H PO (09:55)
[2024-03-28] MEDS: Divalproex Sodium Sprinkles 125 MG CAP.DR.SPR PO ×3 (09:55→20:23)
[2024-03-28] MEDS: 0.9 % Sodium Chloride Flush 3 ML SYRINGE IVFLUSH ×3 (09:55→21:02)
[2024-03-28] MEDS: Apixaban 2.5 MG TABLET PO ×2 (09:55→20:23)
[2024-03-28] MEDS: FLUoxetine HCl 20 MG CAPSULE PO (09:55)
[2024-03-28] MEDS: Valsartan 80 MG TABLET PO (09:55)
--- NOTE | 2024-03-28 11:03 | PM.PNORT ---
Subjective Subjective Date of Service: 03/28/24 Interval history: Ms. Roberto is an 88-year-old female status post left hip hemiarthroplasty on 01/18/[address] Watkins. Patient is resting in bed comfortably. Reports no pain. No overnight events. Abduction pillow placed. Physical Exam Vital Signs: Vital Signs: Last Vital Signs Temp 97.0 F 03/28/24 07:41 Pulse 66 03/28/24 09:50 Resp 20 03/28/24 07:41 BP 152/74 H 03/28/24 09:50 Pulse Ox 96 03/28/24 07:41 O2 Del Method Room Air 03/28/24 07:41 O2 Flow Rate 4 03/25/24 03:34 FiO2 60 03/23/24 04:00 Oxygen Flow Rate 2 03/15/24 21:10 BMI result Body Mass Index 24.4 Const: General: cooperative, healthy appearing and no acute distress Resp: Effort & Inspection: normal respiratory effort and able to speak in complete sentences Cardio: Rate: regular rate Peripheral pulses: Peripheral pulses 2+ throughout GI: Palpation (GI): Soft to palpation Skin: Lesions: no lesions Rashes: no rashes Extrem: Other: Left hip Aquacel does have mild staining. Left lower extremity able to dorsiflex and plantar flex sensation is intact pedal pulse intact. Procedures Date of Service Date of Service: 03/28/24 Progress Note: A&P Assessment and plan (1) Atrial fibrillation with rapid ventricular response: Status: Acute (2) Toxic metabolic encephalopathy: Status: Acute (3) Acute hypernatremia: Status: Acute (4) Acute respiratory failure with hypoxia: Status: Acute (5) Aspiration pneumonia: Status: Acute (6) Chronic anticoagulation: Status: Acute (7) Atrial fibrillation: Status: Acute (8) Closed fracture of neck of left femur: Status: Acute Assessment and Plan: Dressing to be changed prior to discharge Follow up with Orthopedics for staple removal and wound assessment Abduction pillow at all times while in bed Weight-bearing as tolerated left lower extremity Posterior precautions Glute core quad strengthening and gait training with physical therapy Continue anticoagulation (9) Dementia: Status: Acute Time Spent With Patient Time: Total time managing care of this patient today ____ minutes. Quality Stroke Does the patient have a stroke diagnosis?: No VTE Prior VTE?: No VTE Risk Level:: Medical - moderate - high VTE Device Contraindication: N/A - Device Ordered VTE Drug Contraindication: Treatment Not Indicated
--- NOTE | 2024-03-28 11:27 | MHC.SL.SWA ---
Speech Pathologist Impression: Risk of aspiration, oropharyngeal dysphagia Risk of Aspiration Due to: Lethargy Neurological Condition History of Pneumonia Poor PO Intake Weak Cough Dysphasia Diet Status:Start on NDD1/downgrade to HTL Liquid Consistency and Strategies for Safe Swallow: Liquid Intake Recommendation: Honey Thick Liquid Intake Strategies: Small Sips No Straws Liquids by Teaspoon Only Solid Food Consistency: Dietary Recommendations: Pureed (NDD1) Additional Modifications to Solid Foods: Patient's condition appears to have improved overall. Patient is more awake and alert, conversant and participatory in PO trials. She tolerated trials of puree and honey thick liquid via teaspoon. Observed tongue pumping and mildly delayed swallow, but no overt s/s of aspiration and good oral clearance. Continue to note throat clearing and vocal wetness after trials of thin liquid. Recommend PUREED (NDD1) diet with HONEY THICK liquids administered via TEASPOON, pills CRUSHED in PUREE. Patient will need 1:1 assistance feeding and following precautions: sit upright, small bites, small sips via teaspoon, check oral cavity for clearance periodically, cue patient for dry swallow between bites/sips, daily oral care. Oral Medication Intake: Crushed with Puree Please contact the pharmacy regarding appropriate crushable or liquid drug formulations that are available whenever modified delivery is recommended. Compensatory Strategies and Precautions to be Taken for Safe Swallow: Sitting Upright (90 deg) Double Swallow No Straw Liquids from Spoon Small Bites and Sips Rate of Ingestion Change Oral Check Supervision While Eating and Drinking for Safe Swallow: Total Assistance (1:1) Swallowing Recommended Treatments: Compens. Strategy Educat. Recommendation for Speech: Inpatient Speech Therapy Frequency/Duration: Date Range for Service Req: Timeline to reassess: PRN Film Masker Clinican/Clinical Fellow: No Supervisory Statement: I have reviewed and agree with the student/clinical fellow's documentation: N/A Speech Language Pathologist: Andra Barfield M.A., CCC-ALGOLOGY TEACHER
--- NOTE | 2024-03-28 12:15 | HO.PM.IMPN ---
Subjective Subjective Date of Service: 03/28/24 Interval History: Seen and evaluated this morning Alert and interactive no reported overnight events Review of Systems Review of Systems: Yes all other systems are reviewed and are negative Physical Exam Vital Signs: Vital Signs: Last Vital Signs Temp 97.0 F 03/28/24 07:41 Pulse 66 03/28/24 09:50 Resp 20 03/28/24 07:41 BP 152/74 H 03/28/24 09:50 Pulse Ox 96 03/28/24 07:41 O2 Del Method Room Air 03/28/24 07:41 O2 Flow Rate 4 03/25/24 03:34 FiO2 60 03/23/24 04:00 Oxygen Flow Rate 2 03/15/24 21:10 BMI result Body Mass Index 24.4 Const: Other: Constitutional : awake, interactive, looks comfortable, not in distress Neck : Normal inspection, Supple Cardiovascular : irregular irregular, no JVP, trace lower extremity edema Respiratory : fair bilateral air entry, no crackles, no wheezes , On RA Gastrointestinal: soft, lax, Normal bowel sounds, Non tender Skin : Warm, Dry Neurological : Alert, oriented to self, sweetly confused otherwise, moving all extremities Objective Data Active Medications Acetaminophen (Acetaminophen 325 Mg Tablet) 975 mg PO Q6H PRN PRN Reason: Pain, Moderate(Pain Scale 4-6) Last Admin: 03/21/24 09:11 Dose: 975 mg Documented By: IRAIDA Acetaminophen (Acetaminophen 325 Mg Tablet) 650 mg PO Q4H PRN PRN Reason: Fever Last Admin: 03/23/24 20:03 Dose: 650 mg Documented By: GERSON Ampicillin Sodium/Sulbactam Sodium (Ampicillin Sodium/Sulbactam Na 1.5 Gm Vial) 1.5 gm IV Q6H [facility] Last Admin: 03/28/24 09:56 Dose: 1.5 gm Documented By: TELMA Apixaban (Apixaban 2.5 Mg Tablet) 2.5 mg PO BID [facility] Last Admin: 03/28/24 09:55 Dose: 2.5 mg Documented By: TELMA Divalproex Sodium (Divalproex Sodium Sprinkles 125 Mg ) 125 mg PO TID [facility] Last Admin: 03/28/24 09:55 Dose: 125 mg Documented By: TELMA Fluoxetine HCl (Fluoxetine Hcl 20 Mg Capsule) 20 mg PO DAILY [facility] Last Admin: 03/28/24 09:55 Dose: 20 mg Documented By: TELMA Memantine (Memantine Hcl 5 Mg Tablet) 5 mg PO DAILY [facility] Last Admin: 03/24/24 09:18 Dose: Not Given Documented By: MILAGRO Non-Admin Reason: pt too fatigued Metoprolol Succinate (Metoprolol Succinate Er 25 Mg Tab.Er.24h) 25 mg PO DAILY [facility]; Protocol Last Admin: 03/28/24 09:55 Dose: 25 mg Documented By: TELMA Metoprolol Tartrate (Metoprolol Tartrate 5 Mg/5 Ml Vial) 5 mg IVPUSH Q4H PRN; Protocol PRN Reason: Heart Rate >130 Last Admin: 03/25/24 12:40 Dose: 5 mg Documented By: TASHA Mirtazapine (Mirtazapine 7.5 Mg Tablet) 7.5 mg PO BEDTIME [facility] Last Admin: 03/27/24 23:19 Dose: 7.5 mg Documented By: TIGRE Olanzapine (Olanzapine 7.5 Mg Tablet) 7.5 mg PO BEDTIME [facility] Last Admin: 03/23/24 20:03 Dose: 7.5 mg Documented By: GERSON Olanzapine (Olanzapine 10 Mg Vial) 5 mg IM BEDTIME PRN PRN Reason: anxiety/restlessness Last Admin: 03/24/24 21:55 Dose: 5 mg Documented By: ELIANA Sodium Chloride (0.9 % Sodium Chloride Flush 3 Ml Syringe) 3 ml IVFLUSH QSHIFT [facility] Last Admin: 03/28/24 09:55 Dose: 3 ml Documented By: TELMA Valsartan (Valsartan 80 Mg Tablet) 80 mg PO DAILY [facility] Last Admin: 03/28/24 09:55 Dose: 80 mg Documented By: TELMA Labs 03/28/24 06:46 03/27/24 08:29 Labs: Laboratory Results - last 24 hr 03/28/24 06:46 MCV 91.0 MCH 30.1 MCHC 33.0 RDW 14.6 Plt Count 352 MPV 11.1 Absolute Nucleated RBC 0.000 Nucleated RBC % (auto) 0.0 Assessment and Plan (1) Atrial fibrillation with rapid ventricular response: Status: Acute (2) Toxic metabolic encephalopathy: Status: Acute (3) Acute respiratory failure with hypoxia: Status: Acute (4) Aspiration pneumonia: Status: Acute (5) Acute hypernatremia: Status: Acute Plan 88F PMH advanced dementia, hfref, chronic afib, htn, presented with fall complicated by left femoral neck fracture Acute Toxic metabolic encephalopathy 2/2 MEdications, Hypernatremia and inpatient delerium Improving restart Namenda Follow Na level recurrent reorientation Avoid meds that might alter her mind get her up to recliner once able ADMEASURER following passed bedside screening swallow test, start pureed w honey thick liquids Acute Hypernatremia Na of 146, Finished D5W encourage water intake repeat BMP Acute hypokalemia given replacement , follow BMP mechanical fall complciated by left femoral neck fracture PT\OT Chronic atrial fibrillation w RvR continue eliquis, metoprolol to 25 XL PRN MEtoprolol IV\PO if alert Acute hypoxic respiratory failure and acute metabolic encephalopathy 2/2 acute on chronic hfref and acute aspiration pneumonia improving slowly Advance diet per ADMEASURER Continue Unasyn started 03/21 Wean O2 down as tolerated suctioning monitor off diuretics and fluids Hfref continue metoprolol Advanced dementia unspecified Continue memantine and olanzapine DVT prophylaxis-Eliquis Full code Reason for continued hospitalization pending correcting electrolytes, clinical improvement, PT reevaluation and safe dispo Quality Stroke Does the patient have a stroke diagnosis?: No VTE Prior VTE?: No VTE Risk Level:: Medical - moderate - high VTE Device Contraindication: N/A - Device Ordered VTE Drug Contraindication: Treatment Not Indicated
--- NOTE | 2024-03-28 12:23 | MHC.CM.PN ---
CM returned a call to Son/HCP/Marvin @ [phone]. [facility] SN[facility] continues to be the first choice; CM continue to provide them with requested updates.Patient is medically cleared for dc and CM will follow.
[2024-03-28 13:02] LABS: Anion Gap 12 (12-20); Blood Urea Nitrogen 14 mg/dL (9-16); Calcium 8.3 mg/dL (8.4-10.2); Carbon Dioxide 28 mmol/L (22-29); Chloride 105 mmol/L (96-108); Creatinine Clr Calc Pharmacy 71.3; Estimated Glomerular Filt Rate > 60; Glucose Random 104 mg/dL (60-115); Potassium 3.4 mmol/L (3.3-5.1); Sodium 142 mmol/L (135-145)
[2024-03-28 15:59] VITALS: BP 136/62; PULSE 70; RESP 18; TEMP 36.6; O2SAT 94
[2024-03-28 19:34] VITALS: BP 161/79; PULSE 96; RESP 20; TEMP 36.4; O2SAT 92
[2024-03-28] MEDS: Mirtazapine 7.5 MG TABLET PO (20:23)
[2024-03-28 23:25] VITALS: BP 118/62; PULSE 83; RESP 20; TEMP 36.6; O2SAT 95
[2024-03-29] VITALS (7 sets, daily range): BP systolic 149–158; BP diastolic 67–86; PULSE 50–162; RESP 16–20; TEMP 35.7–36.8; O2SAT 90–96
[2024-03-29 07:24] LABS: Hematocrit 30.8 % (37.0-47.0); Hemoglobin 10.1 g/dl (12.0-16.0); Mean Corpuscular HGB Conc 32.8 g/dl (31.0-35.0); Mean Corpuscular Hemoglobin 30.1 pg (27.0-33.0); Mean Corpuscular Volume 91.7 fL (80.0-98.0); Mean Platelet Volume 11.1 fL (9.4-12.3); Platelet Count 410 X10*3/uL (160-400); Red Blood Count 3.36 X10*6/uL (4.20-5.50); Red Cell Distribution Width 14.6 % (11.0-16.0); White Blood Count 11.3 X10*3/uL (4.8-10.8)
[2024-03-29] MEDS: Apixaban 2.5 MG TABLET PO (10:35)
[2024-03-29] MEDS: Valsartan 80 MG TABLET PO (10:35)
[2024-03-29] MEDS: Memantine HCl 5 MG TABLET PO (10:36)
[2024-03-29] MEDS: Divalproex Sodium Sprinkles 125 MG CAP.DR.SPR PO ×3 (10:37→22:39)
[2024-03-29] MEDS: 0.9 % Sodium Chloride Flush 3 ML SYRINGE IVFLUSH ×3 (10:37→19:45)
[2024-03-29] MEDS: FLUoxetine HCl 20 MG CAPSULE PO (10:37)
--- NOTE | 2024-03-29 12:40 | MHC.SPEECHCO ---
Pt fast asleep on arrival, her tray is at the side of her recliner accurate to her diet order.
--- NOTE | 2024-03-29 14:22 | MHC.CM.PN ---
CM met with pt and son today. Pt has Dementia, she resides at [facility], and has extra help in from [facility]. DC plan is to have her return to her [facility], she will need STR, first choice of son is [facility]. Pt. has participated only a little in PT, it is uncertain if she will be accepted for STR. OT eval rec [facility]. Son has asked for psych eval to look at pt.'s meds, CM sent this message to provider. CM to follow and assist with DC plan.
--- NOTE | 2024-03-29 16:47 | HO.PM.IMPN ---
Subjective Subjective Date of Service: 03/29/24 Interval History: Seen and evaluated this morning little sleeping in the morning but improved during the day to become more alert and interactive Had physical therapy session bryan hein reported overnight events Review of Systems Review of Systems: Yes all other systems are reviewed and are negative Physical Exam Vital Signs: Vital Signs: Last Vital Signs Temp 97.3 F 03/29/24 16:00 Pulse 50 03/29/24 16:00 Resp 18 03/29/24 16:00 BP 149/71 H 03/29/24 16:00 Pulse Ox 90 L 03/29/24 16:00 O2 Del Method Room Air 03/29/24 16:00 O2 Flow Rate 4 03/25/24 03:34 FiO2 60 03/23/24 04:00 Oxygen Flow Rate 2 03/15/24 21:10 BMI result Body Mass Index 24.4 Const: Other: Constitutional : awake, interactive, looks comfortable, not in distress Neck : Normal inspection, Supple Cardiovascular : irregular irregular, no JVP, trace lower extremity edema Respiratory : fair bilateral air entry, no crackles, no wheezes , On RA Gastrointestinal: soft, lax, Normal bowel sounds, Non tender Skin : Warm, Dry Neurological : Alert, oriented to self, sweetly confused otherwise, moving all extremities Objective Data Active Medications Acetaminophen (Acetaminophen 325 Mg Tablet) 975 mg PO Q6H PRN PRN Reason: Pain, Moderate(Pain Scale 4-6) Last Admin: 03/21/24 09:11 Dose: 975 mg Documented By: IRAIDA Acetaminophen (Acetaminophen 325 Mg Tablet) 650 mg PO Q4H PRN PRN Reason: Fever Last Admin: 03/23/24 20:03 Dose: 650 mg Documented By: GERSON Ampicillin Sodium/Sulbactam Sodium (Ampicillin Sodium/Sulbactam Na 1.5 Gm Vial) 1.5 gm IV Q6H [facility] Last Admin: 03/29/24 10:34 Dose: 1.5 gm Documented By: DALLIN Apixaban (Apixaban 2.5 Mg Tablet) 2.5 mg PO BID [facility] Last Admin: 03/29/24 10:35 Dose: 2.5 mg Documented By: DALLIN Divalproex Sodium (Divalproex Sodium Sprinkles 125 Mg ) 125 mg PO TID [facility] Last Admin: 03/29/24 10:37 Dose: 125 mg Documented By: DALLIN Fluoxetine HCl (Fluoxetine Hcl 20 Mg Capsule) 20 mg PO DAILY [facility] Last Admin: 03/29/24 10:37 Dose: 20 mg Documented By: DALLIN Memantine (Memantine Hcl 5 Mg Tablet) 5 mg PO DAILY [facility] Last Admin: 03/29/24 10:36 Dose: 5 mg Documented By: DALLIN Metoprolol Succinate (Metoprolol Succinate Er 25 Mg Tab.Er.24h) 25 mg PO DAILY [facility]; Protocol Last Admin: 03/29/24 10:39 Dose: Not Given Documented By: DALLIN Non-Admin Reason: Physician Held Med Metoprolol Tartrate (Metoprolol Tartrate 5 Mg/5 Ml Vial) 5 mg IVPUSH Q4H PRN; Protocol PRN Reason: Heart Rate >130 Last Admin: 03/25/24 12:40 Dose: 5 mg Documented By: TASHA Mirtazapine (Mirtazapine 7.5 Mg Tablet) 7.5 mg PO BEDTIME [facility] Last Admin: 03/28/24 20:23 Dose: 7.5 mg Documented By: ELIANA Olanzapine (Olanzapine 10 Mg Vial) 5 mg IM BEDTIME PRN PRN Reason: anxiety/restlessness Last Admin: 03/24/24 21:55 Dose: 5 mg Documented By: ELIANA Olanzapine (Olanzapine 2.5 Mg Tablet) 2.5 mg PO BEDTIME [facility] Sodium Chloride (0.9 % Sodium Chloride Flush 3 Ml Syringe) 3 ml IVFLUSH QSHIFT [facility] Last Admin: 03/29/24 10:37 Dose: 3 ml Documented By: DALLIN Valsartan (Valsartan 80 Mg Tablet) 80 mg PO DAILY [facility] Last Admin: 03/29/24 10:35 Dose: 80 mg Documented By: DALLIN Labs 03/29/24 06:13 03/28/24 12:35 Labs: Laboratory Results - last 24 hr 03/29/24 06:13 MCV 91.7 MCH 30.1 MCHC 32.8 RDW 14.6 Plt Count 410 H MPV 11.1 Absolute Nucleated RBC 0.000 Nucleated RBC % (auto) 0.0 Microbiology Microbiology Results: Microbiology 03/23/24 20:19 Blood Culture - Final Blood - Venous No growth after 5 days. 03/23/24 20:19 Blood Culture - Final Blood - Venous No growth after 5 days. Assessment and Plan (1) Atrial fibrillation with rapid ventricular response: Status: Acute (2) Toxic metabolic encephalopathy: Status: Acute (3) Acute hypernatremia: Status: Acute (4) Aspiration pneumonia: Status: Acute Plan 88F PMH advanced dementia, hfref, chronic afib, htn, presented with fall complicated by left femoral neck fracture Acute Toxic metabolic encephalopathy 2/2 MEdications, Hypernatremia and inpatient delerium Improving overall restarted Namenda 03/28 recurrent reorientation up to recliner once able to COMPENSATION AND BENEFITS ADMINISTRATOR following, start pureed w honey thick liquids Psychi Consult for medications adjustment Acute Hypernatremia Na of 142, Finished D5W encourage water intake repeat BMP Acute hypokalemia given replacement , follow BMP mechanical fall complciated by left femoral neck fracture PT\OT Bradycardia Could be related to starting MEmantin along with MEtoprolol Will decrease Metoprolol ER to 12.5 Monitor on Tele Chronic atrial fibrillation w RvR controlled continue eliquis metoprolol decreased to 12.5 ER Acute hypoxic respiratory failure and acute metabolic encephalopathy 2/2 acute on chronic hfref and acute aspiration pneumonia resolved Advance diet per COMPENSATION AND BENEFITS ADMINISTRATOR Finished 7 days of Unasyn, started 03/21 Not on diuretics or fluids at this point Hfref continue metoprolol Advanced dementia unspecified Continue memantine and olanzapine DVT prophylaxis-Eliquis Full code Reason for continued hospitalization pending psychiatric team evaluation, clinical improvement, PT reevaluation and safe dispo Quality Stroke Does the patient have a stroke diagnosis?: No VTE Prior VTE?: No VTE Risk Level:: Medical - moderate - high VTE Device Contraindication: N/A - Device Ordered VTE Drug Contraindication: Treatment Not Indicated
[2024-03-29] MEDS: Omeprazole 20 MG CAPSULE.DR PO (17:33)
[2024-03-29] MEDS: Acetaminophen 325 MG TABLET 650 MG PO (22:39)
[2024-03-29] MEDS: Mirtazapine 7.5 MG TABLET PO (22:39)
[2024-03-30] VITALS (7 sets, daily range): BP systolic 153–195; BP diastolic 70–106; PULSE 28–104; RESP 16–20; TEMP 36.1–36.4; O2SAT 95–100
--- NOTE | 2024-03-30 06:06 | PM.EVENT ---
Event Note Date of Service: 03/30/24 Event Note: Nurse reported sinus pause of around 4s. Will hold metoprolol and consult Cardiology. BP ok Time Spent With Patient Time: Total time managing care of this patient today ____ minutes.
[2024-03-30] MEDS: Omeprazole 20 MG CAPSULE.DR PO ×2 (06:34→15:55)
--- NOTE | 2024-03-30 06:39 | PC.NURSE ---
0555 HR dropped down 28, pt required be sternal rubbed several time to get responsiveness . BP 195/81 to L forearm. at bedside to evaluate pt. AM dose of metoprolol to be held this am, and cardiology to consult pt .
[2024-03-30 07:23] LABS: INTERNATIONAL NORM RATIO 1.9 (0.9-1.1)
[2024-03-30 07:27] LABS: Hematocrit 31.7 % (37.0-47.0); Hemoglobin 10.5 g/dl (12.0-16.0); Mean Corpuscular HGB Conc 33.1 g/dl (31.0-35.0); Mean Corpuscular Hemoglobin 30.3 pg (27.0-33.0); Mean Corpuscular Volume 91.6 fL (80.0-98.0); Mean Platelet Volume 10.5 fL (9.4-12.3); Platelet Count 472 X10*3/uL (160-400); Red Blood Count 3.46 X10*6/uL (4.20-5.50); Red Cell Distribution Width 14.7 % (11.0-16.0); White Blood Count 10.7 X10*3/uL (4.8-10.8)
[2024-03-30 07:35] LABS: Alanine Aminotransferase 12 U/L (0-31); Albumin Level 2.4 g/dL (3.5-5.0); Alkaline Phosphatase 91 U/L (39-117); Anion Gap 15 (12-20); Aspartate Amino Transferase 14 U/L (5-31); Bilirubin Direct 0.3 mg/dL (0.0-0.5); Bilirubin Total 0.4 mg/dL (0.0-1.0); Blood Urea Nitrogen 13 mg/dL (9-16); Calcium 8.5 mg/dL (8.4-10.2); Carbon Dioxide 27 mmol/L (22-29); Chloride 106 mmol/L (96-108); Creatinine Clr Calc Pharmacy 78.7; Estimated Glomerular Filt Rate > 60; Glucose Random 83 mg/dL (60-115); Iron 34 mcg/dL (30-160); Percent Iron Saturation 23 % (15-50); Potassium 3.1 mmol/L (3.3-5.1); Sodium 145 mmol/L (135-145); Total Iron Binding Capacity 145 mcg/dL (228-428); Total Protein 5.3 g/dL (6.5-8.0); Unsaturated Iron Binding 111 ug/dL
--- NOTE | 2024-03-30 09:11 | PC.NURSE ---
Addendum entered by Lei Garnett RN 03/30/24 15:59: informed md of pt's bp and that pt is limiting her po intake. pt refused to continue eating and drinking for PO meds this evening Original Note: informed md of pt's bp in both arms, how they are different by 20 systolicaly and of pt's HR hx, can latisha down to 20s
[2024-03-30] MEDS: FLUoxetine HCl 20 MG CAPSULE PO (09:21)
[2024-03-30] MEDS: Divalproex Sodium Sprinkles 125 MG CAP.DR.SPR PO ×3 (09:21→20:04)
[2024-03-30] MEDS: Potassium Chloride Packet 20 MEQ PACKET 40 MEQ PO (09:21)
[2024-03-30] MEDS: Valsartan 80 MG TABLET PO (09:21)
--- NOTE | 2024-03-30 11:01 | MHC.CM.PN ---
Pt is not yet ready for DC, but improving, DC plan is STR, family's first choice is [facility], they have been kept up to date.
--- NOTE | 2024-03-30 12:08 | P.CNPS_ITS ---
History of Present Illness Date of Service: 03/30/24 Chief Complaint: Hip fracture Reason for Consult: Medication consultation, family request, delirium, over-sedation. Requesting physician: Belinda Cordova Sources of Information: patient interviewed, chart reviewed and crisis/core team assessment reviewed Additional Sources of Information: Marvin Buckner, . He is post op today s/p back surgery. HPI Narrative: 88 yo female, admitted to [facility] 03/15/24 with advance dementia, toxic metabolic encephalopathy, hypernatremia, aspiration pneumonia, HTN and L femoral neck fx s/p fall. Consult today for psychotropic medicine monitoring per family request as pt had been oversedated, with delirium. Met with pt who is alert, bright, engaged with mild confusion. She is fully interactive and there is no sedation present upon interview. Call to son Marvin [phone] who is one day post op from back surgery. Marvin reports pt initially on admission to [facility] had no psychotropics and had withdrawal with swallow difficulties. Depakote liquid was started and she improved, was coherrent, able to hold her own beverages, swallow and remain in the moment. She then restarted the remainder of her regime. Marvin reports pt lives in an [facility] and they have a psychotropic medication surgical product sales consultant, however, he believes that her psych meds require more assessment and management. She initiated psychotropic medications when she had perceptual alterations related to UTI and meds were added from there, never having a gradual dose reduction. Marvin reports this has been a year of decline for pt- she was out and about with family for Mother's Day 2022, however with UTI's, COVID, need for anesthesia her baseline has changed. He believes she had significant medicine withdrawal upon admission and now is more awake and alert with less agents. He asks if we can make some adjustments. By history, the family seems to have more sx with more medications they take. Medical Evaluation Reviewed: Yes Review of Systems Review of Systems Yes Unobtainable due to mental status [facility] Medical History COPD (chronic obstructive pulmonary disease) Dementia Essential hypertension Surgical History History of hysterectomy History of ear surgery Diagnostics Vital Signs (24Hr): Vital Signs - 24 hr 03/29/24 12:09 03/29/24 12:40 03/29/24 16:00 Temperature 96.3 F L 97.3 F Pulse Rate 80 162 H 50 Respiratory Rate 18 18 Blood Pressure 152/71 H 149/71 H Pulse Oximetry 90 L Oxygen Delivery Method Room Air 03/29/24 20:00 03/30/24 03:59 03/30/24 05:55 Temperature 97.0 F 97.1 F Pulse Rate 95 69 28 L Respiratory Rate 17 16 Blood Pressure 158/79 H 170/83 H Pulse Oximetry 96 96 Oxygen Delivery Method Room Air Room Air 03/30/24 06:00 03/30/24 07:34 03/30/24 11:50 Temperature 97.0 F 97.0 F Pulse Rate 79 80 Respiratory Rate 20 20 Blood Pressure 195/81 H 162/74 H 153/70 H Pulse Oximetry 95 98 Oxygen Delivery Method Room Air Room Air BMI result Body Mass Index 24.4 Labs 03/30/24 06:52 03/30/24 06:52 Labs: Laboratory Results - last 48 hr 03/28/24 03/29/24 03/30/24 12:35 06:13 06:52 WBC 11.3 H 10.7 RBC 3.36 L 3.46 L Hgb 10.1 L 10.5 L Hct 30.8 L 31.7 L MCV 91.7 91.6 MCH 30.1 30.3 MCHC 32.8 33.1 RDW 14.6 14.7 Plt Count 410 H 472 H MPV 11.1 10.5 Absolute Nucleated RBC 0.000 0.000 Nucleated RBC % (auto) 0.0 0.0 PT 23.0 H D INR 1.9 H D Sodium 142 145 Potassium 3.4 3.1 L Chloride 105 106 Carbon Dioxide 28 27 Anion Gap 12 15 BUN 14 13 Creatinine 0.53 0.48 L Estim Creat Clear Calc 71.3 78.7 Estimated GFR > 60 > 60 Random Glucose 104 83 Calcium 8.3 L D 8.5 Iron 34 TIBC 145 L % Saturation 23 Unsat Iron Binding 111 Total Bilirubin 0.4 Direct Bilirubin 0.3 AST 14 ALT 12 Alkaline Phosphatase 91 Total Protein 5.3 L Albumin 2.4 L Imaging Radiology Impressions: ITS Impressions Cervical Spine CT 03/15/24 22:55 IMPRESSION: CT HEAD: 1. No acute intracranial process seen. 2. Age-related cerebral volume loss with chronic small vessel ischemic changes. CT CERVICAL SPINE: No acute fracture or malalignment. There is diffuse osteopenia. Head CT 03/15/24 22:55 IMPRESSION: CT HEAD: 1. No acute intracranial process seen. 2. Age-related cerebral volume loss with chronic small vessel ischemic changes. CT CERVICAL SPINE: No acute fracture or malalignment. There is diffuse osteopenia. Chest X-Ray 03/15/24 23:05 IMPRESSION: Stable enlarged cardiac silhouette. No acute cardiopulmonary process. Femur X-Ray 03/15/24 23:05 IMPRESSION: No significant abnormality identified. Hip/Pelvis X-Ray 03/15/24 23:05 IMPRESSION: Displaced left femoral neck fracture. Pelvis X-Ray 03/18/24 17:10 IMPRESSION: Satisfactory appearance of left hip hemiarthroplasty. Shoulder X-Ray 03/19/24 15:30 IMPRESSION: 1. No acute fracture or dislocation. 2. Mild acromioclavicular osteoarthritis. Chest X-Ray 03/21/24 00:40 IMPRESSION: 1. Cardiomegaly. No acute pulmonary findings. 2. Enlarged right main pulmonary artery which can be seen with pulmonary arterial hypertension. Chest X-Ray 03/21/24 13:45 IMPRESSION: Central vascular congestion and mild interstitial prominence which may represent mild edema. Hazy left basilar opacities which may be secondary to atelectasis or infectious/inflammatory etiology. Probable trace left pleural effusion. Chest X-Ray 03/23/24 08:45 IMPRESSION: Prominence of right hilum and pleural-based thickening on the left. Mental Status Exam Mental Status Exam Patient Appearance: Appropriate Patient Orientation: Person Level of Consciousness: Awake, Appropriate and Alert Patient Behavior: Appropriate, Talkative, Cooperative, Confused and Good Eye Contact Mood Description: Cheerful Affect Description: Cheerful Patient Cognition Impaired: Yes Ability to Follow Directions: Fair Speech Pattern: Spontaneous Speech and Cofabulation Memory Description: Remote Impaired, Immediate Impaired, Episodic Impaired and Recent Impaired Hallucinations: None Delusions: Not Present Thought Process: Confusion Thought Content: positive for Circumstantial and positive for Tangential Judgement: Poor Medications Medications Current Medications Acetaminophen (Acetaminophen 325 Mg Tablet) 975 mg PO Q6H PRN PRN Reason: Pain, Moderate(Pain Scale 4-6) Last Admin: 04/29/24 09:11 Dose: 975 mg Acetaminophen (Acetaminophen 325 Mg Tablet) 650 mg PO Q4H PRN PRN Reason: Fever Last Admin: 03/29/24 22:39 Dose: 650 mg Apixaban (Apixaban 2.5 Mg Tablet) 2.5 mg PO BID [facility] Last Admin: 03/29/24 10:35 Dose: 2.5 mg Divalproex Sodium (Divalproex Sodium Sprinkles 125 Mg Cap.) 125 mg PO TID [facility] Last Admin: 03/30/24 09:21 Dose: 125 mg Fluoxetine HCl (Fluoxetine Hcl 20 Mg Capsule) 20 mg PO DAILY [facility] Last Admin: 03/30/24 09:21 Dose: 20 mg Mirtazapine (Mirtazapine 7.5 Mg Tablet) 7.5 mg PO BEDTIME [facility] Last Admin: 03/29/24 22:39 Dose: 7.5 mg Olanzapine (Olanzapine 10 Mg Vial) 5 mg IM BEDTIME PRN PRN Reason: anxiety/restlessness Last Admin: 03/24/24 21:55 Dose: 5 mg Olanzapine (Olanzapine 2.5 Mg Tablet) 2.5 mg PO BEDTIME [facility] Omeprazole (Omeprazole 20 Mg Capsule.) 20 mg PO BID@0630,1630 [facility] Last Admin: 03/30/24 06:34 Dose: 20 mg Sodium Chloride (0.9 % Sodium Chloride Flush 3 Ml Syringe) 3 ml IVFLUSH QSHIFT [facility] Last Admin: 03/30/24 07:41 Dose: Not Given Valsartan (Valsartan 80 Mg Tablet) 80 mg PO DAILY [facility] Last Admin: 03/30/24 09:21 Dose: 80 mg Allergies Allergies Allergy/AdvReac Type Severity Reaction Status Date / Time ammonia [Ammonia] Allergy Severe BURNING Verified 03/18/24 12:23 SENSATION enalaprilat [From Vasotec] Allergy Severe CHOKING Verified 03/18/24 12:23 hydrochlorothiazide Allergy Severe CHOKING Verified 03/18/24 12:23 [From Hyzaar] FEELING losartan [From Cozaar] Allergy Severe CHOKING Verified 03/18/24 12:23 FEELING latex Allergy Intermediate Rash Verified 03/18/24 12:24 Assessment & Plan Assessment & Plan (1) Toxic metabolic encephalopathy: Status: Acute Code(s): G92.8 - Other toxic encephalopathy (2) Dementia: Qualifiers: Dementia behavioral or psychological symptom: unspecified whether behavioral, psychotic, or mood disturbance or anxiety Dementia severity: u nspecified severity Dementia type: unspecified type Qualified Code(s): F03.90 - Unspecified dementia, unspecified severity, without behavioral disturbance, psychotic disturbance, mood disturbance, and anxiety Status: Acute Code(s): F03.90 - Unspecified dementia, unspecified severity, without behavioral disturbance, psychotic disturbance, mood disturbance, and anxiety Plan 88 yo female, history of advanced dementia, admitted s/p fall, L femoral neck fx, Afit, toxic metabolic encephalopathy, acute hypernatremia, aspiration pneumonia, HTN, has re-started psychotropic medications from [facility]. Son asks for re-eval as prior to admit he thought she may have been on too many agents and this was a contributing factor to her cognitive decline. Plan: 1. Continue Depakote 2. Valproate Level, TSH, B12,Folate 3. Hold Mirtazapine 4. Change Olanzapine to prn 5. Continue Prozac ([facility] med per son's report) Total time managing care of this patient today ____ minutes. Guardian/Caregiver educated on: medication risk/benefits and therapeutic strategies Informed Consent: does not understand
--- NOTE | 2024-03-30 12:23 | HO.PM.IMPN ---
Subjective Subjective Date of Service: 03/30/24 Interval History: no complaints Physical Exam Vital Signs: Vital Signs: Last Vital Signs Temp 97.0 F 03/30/24 11:50 Pulse 80 03/30/24 11:50 Resp 20 03/30/24 11:50 BP 153/70 H 03/30/24 11:50 Pulse Ox 98 03/30/24 11:50 O2 Del Method Room Air 03/30/24 11:50 O2 Flow Rate 4 03/25/24 03:34 FiO2 60 03/23/24 04:00 Oxygen Flow Rate 2 03/15/24 21:10 BMI result Body Mass Index 24.4 Const: Other: Constitutional : awake, interactive, looks comfortable, not in distress Neck : Normal inspection, Supple Cardiovascular : irregular irregular, no JVP, trace lower extremity edema Respiratory : fair bilateral air entry, no crackles, no wheezes , On RA Gastrointestinal: soft, lax, Normal bowel sounds, Non tender Skin : Warm, Dry Neurological : Alert, oriented to self, sweetly confused otherwise, moving all extremities Objective Data Active Medications Acetaminophen (Acetaminophen 325 Mg Tablet) 975 mg PO Q6H PRN PRN Reason: Pain, Moderate(Pain Scale 4-6) Last Admin: 03/21/24 09:11 Dose: 975 mg Documented By: IRAIDA Acetaminophen (Acetaminophen 325 Mg Tablet) 650 mg PO Q4H PRN PRN Reason: Fever Last Admin: 03/29/24 22:39 Dose: 650 mg Documented By: MARK Apixaban (Apixaban 2.5 Mg Tablet) 2.5 mg PO BID [facility] Last Admin: 03/29/24 10:35 Dose: 2.5 mg Documented By: DALLIN Divalproex Sodium (Divalproex Sodium Sprinkles 125 Mg ) 125 mg PO TID [facility] Last Admin: 03/30/24 09:21 Dose: 125 mg Documented By: HELENFACristofer Fluoxetine HCl (Fluoxetine Hcl 20 Mg Capsule) 20 mg PO DAILY [facility] Last Admin: 03/30/24 09:21 Dose: 20 mg Documented By: BALTA Mirtazapine (Mirtazapine 7.5 Mg Tablet) 7.5 mg PO BEDTIME [facility] Last Admin: 03/29/24 22:39 Dose: 7.5 mg Documented By: MARK Olanzapine (Olanzapine 10 Mg Vial) 5 mg IM BEDTIME PRN PRN Reason: anxiety/restlessness Last Admin: 03/24/24 21:55 Dose: 5 mg Documented By: ELIANA Olanzapine (Olanzapine 2.5 Mg Tablet) 2.5 mg PO BEDTIME [facility] Omeprazole (Omeprazole 20 Mg Capsule.) 20 mg PO BID@0630,1630 [facility] Last Admin: 03/30/24 06:34 Dose: 20 mg Documented By: MARK Sodium Chloride (0.9 % Sodium Chloride Flush 3 Ml Syringe) 3 ml IVFLUSH QSHIFT [facility] Last Admin: 03/30/24 07:41 Dose: Not Given Documented By: BALTA Non-Admin Reason: Previously Administered Valsartan (Valsartan 80 Mg Tablet) 80 mg PO DAILY [facility] Last Admin: 03/30/24 09:21 Dose: 80 mg Documented By: BALTA Labs 03/30/24 06:52 03/30/24 06:52 Labs: Laboratory Results - last 24 hr 03/30/24 06:52 MCV 91.6 MCH 30.3 MCHC 33.1 RDW 14.7 Plt Count 472 H MPV 10.5 Absolute Nucleated RBC 0.000 Nucleated RBC % (auto) 0.0 PT 23.0 H D INR 1.9 H D Anion Gap 15 Estim Creat Clear Calc 78.7 Estimated GFR > 60 Random Glucose 83 Calcium 8.5 Iron 34 TIBC 145 L % Saturation 23 Unsat Iron Binding 111 Total Bilirubin 0.4 Direct Bilirubin 0.3 AST 14 ALT 12 Alkaline Phosphatase 91 Total Protein 5.3 L Albumin 2.4 L Assessment and Plan (1) Atrial fibrillation with rapid ventricular response: Status: Acute (2) Toxic metabolic encephalopathy: Status: Acute (3) Acute hypernatremia: Status: Acute (4) Aspiration pneumonia: Status: Acute Plan 88F PMH advanced dementia, hfref, chronic afib, htn, presented with fall complicated by left femoral neck fracture Acute Toxic metabolic encephalopathy 2/2 MEdications, Hypernatremia and inpatient delerium Improving overall restarted Namenda 5/6 followed by latisha and pauses, will stop recurrent reorientation WORKPLACE TRAINER AND ASSESSOR following, pureed w honey thick liquids Psychi Consult for medications adjustment Acute Hypernatremia monitor off d5w Acute hypokalemia given replacement , follow BMP mechanical fall complciated by left femoral neck fracture PT\OT Bradycardia Could be related to starting MEmantin along with MEtoprolol memantine and metoprolol held cardio eval Monitor on Tele Chronic atrial fibrillation w RvR and svr continue eliquis off metoprolol Acute hypoxic respiratory failure and acute metabolic encephalopathy 2/2 acute on chronic hfref and acute aspiration pneumonia resolved Advance diet per WORKPLACE TRAINER AND ASSESSOR Finished 7 days of Unasyn, started 03/21 Not on diuretics or fluids at this point Hfref euvolemic Advanced dementia unspecified Continue olanzapine DVT prophylaxis-Eliquis Full code reason for continued hospitalization: latisha Quality Stroke Does the patient have a stroke diagnosis?: No VTE Prior VTE?: No VTE Risk Level:: Medical - moderate - high VTE Device Contraindication: N/A - Device Ordered VTE Drug Contraindication: Treatment Not Indicated
--- NOTE | 2024-03-30 12:38 | MHC.CM.PN ---
Pt has been accepted at [facility] for STR, family aware and in agreement, anticipate transfer there on 03/31/24.
--- NOTE | 2024-03-30 17:06 | MHC.SL.SWA ---
Risk of Aspiration Due to: Lethargy Neurological Condition History of Pneumonia Poor PO Intake Weak Cough Dysphasia Diet Status: NO CHANGE Liquid Consistency and Strategies for Safe Swallow: Liquid Intake Recommendation: Honey Thick Liquid Intake Strategies: Small Sips No Straws Liquids by Teaspoon Only Solid Food Consistency: Dietary Recommendations: Pureed (NDD1) Oral Medication Intake: Crushed with Puree Please contact the pharmacy regarding appropriate crushable or liquid drug formulations that are available whenever modified delivery is recommended. Compensatory Strategies and Precautions to be Taken for Safe Swallow: Sitting Upright (90 deg) Double Swallow No Straw Liquids from Spoon Small Bites and Sips Rate of Ingestion Change Oral Check Supervision While Eating and Drinking for Safe Swallow: Total Assistance (1:1) Swallowing Recommended Treatments: Compens. Strategy Educat. Recommendation for Speech: Inpatient Speech Therapy AGILE SCRUM MASTER trialed thin and nectar thick liquids via teaspoon. Patient frequently presenting w/ cough/throat clear/wet vocal quality. Recommend continue w/ PUREED (NDD1) diet with HONEY THICK liquids administered via TEASPOON, pills CRUSHED in PUREE. Patient will need 1:1 assistance feeding and following precautions: sit upright, small bites, small sips via teaspoon, check oral cavity for clearance periodically, cue patient for dry swallow between bites/sips, daily oral care. AGILE SCRUM MASTER to continue to follow to monitor toleration of diet and upgrade if/when warranted. Performance Makeup Artist Clinican/Clinical Fellow: No Supervisory Statement: I have reviewed and agree with the student/clinical fellow's documentation: N/A Speech Language Pathologist: Mikki Cuello M.A., CCC-AGILE SCRUM MASTER
--- NOTE | 2024-03-30 17:12 | MHC.SL.SWA ---
Risk of Aspiration Due to: Lethargy Neurological Condition History of Pneumonia Poor PO Intake Weak Cough Dysphasia Diet Status: Recommend continue w/ PUREED (NDD1) diet with HONEY THICK liquids administered via TEASPOON, pills CRUSHED in PUREE. Patient will need 1:1 assistance feeding and following precautions: sit upright, small bites, small sips via teaspoon, check oral cavity for clearance periodically, cue patient for dry swallow between bites/sips, daily oral care. NUCLEAR EQUIPMENT RESEARCH ENGINEER to continue to follow to monitor toleration of diet and upgrade if/when warranted. Liquid Consistency and Strategies for Safe Swallow: Liquid Intake Recommendation: Honey Thick Liquid Intake Strategies: Small Sips No Straws Liquids by Teaspoon Only Solid Food Consistency: Dietary Recommendations: Pureed (NDD1) Oral Medication Intake: Crushed with Puree Please contact the pharmacy regarding appropriate crushable or liquid drug formulations that are available whenever modified delivery is recommended. Compensatory Strategies and Precautions to be Taken for Safe Swallow: Sitting Upright (90 deg) Double Swallow No Straw Liquids from Spoon Small Bites and Sips Rate of Ingestion Change Oral Check Supervision While Eating and Drinking for Safe Swallow: Total Assistance (1:1) Swallowing Recommended Treatments: Compens. Strategy Educat. Recommendation for Speech: Inpatient Speech Therapy Trialed nectar thick and thin liquids via teaspoon; frequently presents with throat clear/cough. Recommend continue w/ diet above. Animal Damage Control Agent Clinican/Clinical Fellow: No Supervisory Statement: I have reviewed and agree with the student/clinical fellow's documentation: N/A Speech Language Pathologist: Mikki Cuello M.A., CCC-NUCLEAR EQUIPMENT RESEARCH ENGINEER
[2024-03-30] MEDS: 0.9 % Sodium Chloride Flush 3 ML SYRINGE IVFLUSH (20:32)
[2024-03-31 04:00] VITALS: BP 172/74; PULSE 81; RESP 20; TEMP 36.5; O2SAT 95
[2024-03-31] MEDS: Omeprazole 20 MG CAPSULE.DR PO (06:53)
[2024-03-31 07:39] VITALS: BP 159/84; PULSE 104; RESP 18; TEMP 36.5; O2SAT 95
[2024-03-31 07:41] LABS: Hematocrit 30.6 % (37.0-47.0); Hemoglobin 10.2 g/dl (12.0-16.0); Mean Corpuscular HGB Conc 33.3 g/dl (31.0-35.0); Mean Corpuscular Hemoglobin 30.6 pg (27.0-33.0); Mean Corpuscular Volume 91.9 fL (80.0-98.0); Mean Platelet Volume 10.4 fL (9.4-12.3); Platelet Count 547 X10*3/uL (160-400); Red Blood Count 3.33 X10*6/uL (4.20-5.50); Red Cell Distribution Width 14.7 % (11.0-16.0); White Blood Count 13.2 X10*3/uL (4.8-10.8)
[2024-03-31 07:57] VITALS: BP 159/84
[2024-03-31] MEDS: FLUoxetine HCl 20 MG CAPSULE PO (07:57)
[2024-03-31] MEDS: amLODIPine Besylate 2.5 MG TABLET PO (07:57)
[2024-03-31 07:58] VITALS: BP 159/84; PULSE 104
[2024-03-31] MEDS: Divalproex Sodium Sprinkles 125 MG CAP.DR.SPR PO ×2 (07:58→14:15)
[2024-03-31] MEDS: Metoprolol Succinate ER 12.5 MG HALFTAB.ER.24H PO (07:58)
[2024-03-31] MEDS: Valsartan 80 MG TABLET PO (07:58)
[2024-03-31] MEDS: 0.9 % Sodium Chloride Flush 3 ML SYRINGE IVFLUSH (07:58)
[2024-03-31 08:13] LABS: Thyroid Stimulating Hormone 3.98 uIU/mL (0.32-4.0)
[2024-03-31 08:16] LABS: Anion Gap 13 (12-20); Blood Urea Nitrogen 11 mg/dL (9-16); Calcium 8.4 mg/dL (8.4-10.2); Carbon Dioxide 26 mmol/L (22-29); Chloride 108 mmol/L (96-108); Estimated Glomerular Filt Rate > 60; Glucose Fasting 87 mg/dL (60-99); Magnesium 1.9 mg/dL (1.6-2.6); Sodium 144 mmol/L (135-145)
[2024-03-31 08:26] LABS: Potassium 2.8 mmol/L (3.3-5.1)
[2024-03-31 08:27] LABS: Folate 4.4 ng/mL (> or = 4.0); Vitamin B12 1012 pg/mL (200-900)
--- NOTE | 2024-03-31 09:05 | P.PNOP_ITS ---
Subjective Subjective Date of Service: 03/31/24 Interval history: Ms. Roberto is an 88-year-old female status post left hip hemiarthroplasty on 01/18/[address] Watkins. Patient is resting in bed comfortably. Reports no pain. No overnight events. Abduction pillow is no longer being used. Pillow placed between patients legs to avoid abduction and internal rotation. Physical Exam Vital Signs: Vital Signs: Last Vital Signs Temp 97.7 F 03/31/24 07:39 Pulse 104 H 03/31/24 07:58 Resp 18 03/31/24 07:39 BP 159/84 H 03/31/24 07:58 Pulse Ox 95 03/31/24 07:39 O2 Del Method Room Air 03/31/24 07:39 O2 Flow Rate 4 03/25/24 03:34 FiO2 60 03/23/24 04:00 Oxygen Flow Rate 2 03/15/24 21:10 BMI result Body Mass Index 24.4 Const: General: cooperative, healthy appearing and no acute distress Resp: Effort & Inspection: normal respiratory effort and able to speak in complete sentences Cardio: Rate: regular rate Peripheral pulses: Peripheral pulses 2+ throughout GI: Palpation (GI): Soft to palpation Skin: Lesions: no lesions Rashes: no rashes Extrem: Other: Left hip Aquacel does have mild staining. [place] removed no surrounding erythema or drainage. No signes of infection. Left lower extremity able to dorsiflex and plantar flex sensation is intact pedal pulse intact. Procedures Date of Service Date of Service: 03/31/24 Progress Note: A&P Assessment and plan (1) Atrial fibrillation with rapid ventricular response: Status: Acute (2) Toxic metabolic encephalopathy: Status: Acute (3) Acute hypernatremia: Status: Acute (4) Acute respiratory failure with hypoxia: Status: Acute (5) Aspiration pneumonia: Status: Acute (6) Chronic anticoagulation: Status: Acute (7) Atrial fibrillation: Status: Acute (8) Closed fracture of neck of left femur: Status: Acute Assessment and Plan: [place] removed Steri strips applied Follow up with Orthopedics for staple removal and wound assessment Abduction pillow at all times while in bed - Avoid abduction and internal fixation - dislocation risk Weight-bearing as tolerated left lower extremity Posterior precautions Glute core quad strengthening and gait training with physical therapy Continue anticoagulation (9) Dementia: Status: Acute Time Spent With Patient Time: Total time managing care of this patient today ____ minutes. Quality Stroke Does the patient have a stroke diagnosis?: No VTE Prior VTE?: No VTE Risk Level:: Medical - moderate - high VTE Device Contraindication: N/A - Device Ordered VTE Drug Contraindication: Treatment Not Indicated
[2024-03-31] MEDS: Potassium Chloride/H20 10 MEQ/100 ML PIGGYBACK 100 MEQ IV ×4 (09:11→14:15)
[2024-03-31] MEDS: Potassium Chloride Packet 20 MEQ PACKET 40 MEQ PO (09:11)
--- NOTE | 2024-03-31 09:20 | MHC.SL.SWA ---
Speech Pathologist Impression: Risk of Aspiration Due to: Lethargy Neurological Condition History of Pneumonia Poor PO Intake Weak Cough Dysphasia Diet Status: Recommend continue w/ PUREED (NDD1) diet with HONEY THICK liquids administered via TEASPOON, pills CRUSHED in PUREE. Patient will need 1:1 assistance feeding and following precautions: sit upright, small bites, small sips via teaspoon, check oral cavity for clearance periodically, cue patient for dry swallow between bites/sips, daily oral care. Recommend diet continue at next level of care. Liquid Consistency and Strategies for Safe Swallow: Liquid Intake Recommendation: Honey Thick Liquid Intake Strategies: Small Sips No Straws Liquids by Teaspoon Only Solid Food Consistency: Dietary Recommendations: Pureed (NDD1) Additional Modifications to Solid Foods: Oral Medication Intake: Crushed with Puree Please contact the pharmacy regarding appropriate crushable or liquid drug formulations that are available whenever modified delivery is recommended. Compensatory Strategies and Precautions to be Taken for Safe Swallow: Sitting Upright (90 deg) Double Swallow No Straw Liquids from Spoon Small Bites and Sips Rate of Ingestion Change Oral Check Supervision While Eating and Drinking for Safe Swallow: Total Assistance (1:1) Foods to Avoid: Swallowing Recommended Treatments: Compens. Strategy Educat. Recommendation for Speech: Inpatient Speech Therapy Comment: Patient seen during Breakfast with NDD1 and HT lunch tray. All liquids on tray were marked HT however were thin. GSR notified, liquids removed from tray. Patient ate bites of cream of wheat (presenting as honey thick this morning), with disorganized oral phase, tongue pumping noted, delay of swallow, mild oral residual after swallow, occaisional wet vocal quality after swallow. Patient was frequently cued to produce a second swallow, with second swallow, clearance of residual/wed vocal quality. Patient also frequently needed cuing not to speak when eating. Patient consumed Cream of wheat and pureed bananas (@pudding consistency) with close supervision, 1-1 feeding and frequent cues for a second dry swallow. Recommend continue on Puree with Honey Thick Liquids, all by tsp only, pills crushed in puree, 1-1 feeding with close supervision and cuing for second swallow. Recommend diet continue at next level of care. TWISTING MACHINE OPERATOR will continue to follow while inpatient. Frequency/Duration: Date Range for Service Req: Timeline to reassess: PRN Wet Roller Clinican/Clinical Fellow: No Supervisory Statement: I have reviewed and agree with the student/clinical fellow's documentation: N/A Speech Language Pathologist: Rosy Tay M.A., CCC-TWISTING MACHINE OPERATOR
--- NOTE | 2024-03-31 10:23 | MHC.CM.PN ---
IMM 03/31/24, PER PT WILL BE MEDICALLY CLEARED FOR DC TO STR AT [facility] LATER TODAY, [facility]A PREBOOKED FOR 3:00PM
--- NOTE | 2024-03-31 11:01 | P.PNIM_ITS ---
Subjective Subjective Date of Service: 03/31/24 Interval History: no complaints Physical Exam 2 Vital Signs: Vital Signs: Last Vital Signs Temp 97.7 F 03/31/24 07:39 Pulse 104 H 03/31/24 07:58 Resp 18 03/31/24 07:39 BP 159/84 H 03/31/24 07:58 Pulse Ox 95 03/31/24 07:39 O2 Del Method Room Air 03/31/24 07:39 O2 Flow Rate 4 03/25/24 03:34 FiO2 60 03/23/24 04:00 Oxygen Flow Rate 2 03/15/24 21:10 BMI result Body Mass Index 24.4 Const: General: cooperative, healthy appearing and no acute distress Resp: Effort & Inspection: normal respiratory effort and able to speak in complete sentences Cardio: Rate: regular rate Peripheral pulses: Peripheral pulses 2+ throughout GI: Palpation (GI): Soft to palpation Skin: Lesions: no lesions Rashes: no rashes Extrem: Other: Left hip Aquacel does have mild staining. [place] removed no surrounding erythema or drainage. No signes of infection. Left lower extremity able to dorsiflex and plantar flex sensation is intact pedal pulse intact. Objective Data Active Medications Acetaminophen (Acetaminophen 325 Mg Tablet) 975 mg PO Q6H PRN PRN Reason: Pain, Moderate(Pain Scale 4-6) Last Admin: 03/21/24 09:11 Dose: 975 mg Documented By: IRAIDA Acetaminophen (Acetaminophen 325 Mg Tablet) 650 mg PO Q4H PRN PRN Reason: Fever Last Admin: 03/29/24 22:39 Dose: 650 mg Documented By: MARK Amlodipine Besylate (Amlodipine Besylate 2.5 Mg Tablet) 2.5 mg PO DAILY FORMERLY [facility], [facility]–1983; Protocol Last Admin: 03/31/24 07:57 Dose: 2.5 mg Documented By: HOMAR Apixaban (Apixaban 2.5 Mg Tablet) 2.5 mg PO BID FORMERLY [facility], 1928–1983 Last Admin: 03/29/24 10:35 Dose: 2.5 mg Documented By: DALLIN Divalproex Sodium (Divalproex Sodium Sprinkles 125 Mg ) 125 mg PO TID FORMERLY [facility], 1928–1983 Last Admin: 03/31/24 07:58 Dose: 125 mg Documented By: HOMAR Fluoxetine HCl (Fluoxetine Hcl 20 Mg Capsule) 20 mg PO DAILY FORMERLY [facility], [facility]1983 Last Admin: 03/31/24 07:57 Dose: 20 mg Documented By: HOMAR Potassium Chloride (Potassium Chloride/H20) 10 meq in 100 mls @ 100 mls/hr IV Q1H FOR[facility]LY [facility], [facility]–1983 Stop: 03/31/24 12:44 Last Admin: 03/31/24 10:18 Dose: 100 mls/hr Documented By: HOMAR Metoprolol Succinate (Metoprolol Succinate Er 12.5 Mg Halftab.Er.24h) 12.5 mg PO DAILY FORMERLY [facility], 1928–1983; Protocol Last Admin: 03/31/24 07:58 Dose: 12.5 mg Documented By: HOMAR Mirtazapine (Mirtazapine 7.5 Mg Tablet) 7.5 mg PO BEDTIME FORMERLY [facility], [facility]1983 Last Admin: 03/29/24 22:39 Dose: 7.5 mg Documented By: MARK Olanzapine (Olanzapine 10 Mg Vial) 5 mg IM BEDTIME PRN PRN Reason: anxiety/restlessness Last Admin: 03/24/24 21:55 Dose: 5 mg Documented By: ELIANA Olanzapine (Olanzapine 2.5 Mg Tablet) 2.5 mg PO BEDTIME PRN PRN Reason: agitation Omeprazole (Omeprazole 20 Mg Capsule.Dr) 20 mg PO BID@0630,1630 FOR[facility], [facility]1983 Last Admin: 03/31/24 06:53 Dose: 20 mg Documented By: FREDERICK Sodium Chloride (0.9 % Sodium Chloride Flush 3 Ml Syringe) 3 ml IVFLUSH QSHIFT FOR[facility]LY [facility], [facility]–1983 Last Admin: 03/31/24 07:58 Dose: 3 ml Documented By: HOMAR Valsartan (Valsartan 80 Mg Tablet) 80 mg PO DAILY FOR[facility]LY [facility], [facility]1983 Last Admin: 03/31/24 07:58 Dose: 80 mg Documented By: HOMAR Labs 03/31/24 07:08 03/31/24 07:08 Labs: Laboratory Results - last 24 hr 03/31/24 07:08 MCV 91.9 MCH 30.6 MCHC 33.3 RDW 14.7 Plt Count 547 H MPV 10.4 Absolute Nucleated RBC 0.000 Nucleated RBC % (auto) 0.0 Anion Gap 13 Estim Creat Clear Calc 84.0 Estimated GFR > 60 Fasting Glucose 87 Calcium 8.4 Magnesium 1.9 Vitamin B12 1012 H Folate 4.4 TSH 3.98 Assessment and Plan (1) Atrial fibrillation with rapid ventricular response: Status: Acute (2) Toxic metabolic encephalopathy: Status: Acute (3) Acute hypernatremia: Status: Acute (4) Aspiration pneumonia: Status: Acute Plan 88F PMH advanced dementia, hfref, chronic afib, htn, presented with fall complicated by left femoral neck fracture Acute Toxic metabolic encephalopathy 2/2 MEdications, Hypernatremia and inpatient delerium Improving overall restarted Namenda 03/28 followed by latisha and pauses, now stopped recurrent reorientation PALLIATIVE CARE SPECIALIST following, pureed w honey thick liquids Acute Hypernatremia resolved Acute hypokalemia given replacement , follow BMP mechanical fall complciated by left femoral neck fracture PT\OT Bradycardia Could be related to starting MEmantin memantine held no further events Chronic atrial fibrillation w RvR and svr continue eliquis metoprolol Acute hypoxic respiratory failure and acute metabolic encephalopathy 2/2 acute on chronic hfref and acute aspiration pneumonia resolved Advance diet per PALLIATIVE CARE SPECIALIST Finished 7 days of Unasyn, started 03/21 Not on diuretics or fluids at this point Hfref euvolemic Advanced dementia unspecified Continue olanzapine hypokalemia replace and monitor DVT prophylaxis-Eliquis Full code reason for continued hospitalization: low k, if better plan for d/c today Quality Stroke Does the patient have a stroke diagnosis?: No VTE Prior VTE?: No VTE Risk Level:: Medical - moderate - high VTE Device Contraindication: N/A - Device Ordered VTE Drug Contraindication: Treatment Not Indicated
--- NOTE | 2024-03-31 11:09 | P.DS_ITS ---
DS: Providers Provider Date of Service: 03/31/24 Date of admission: 03/16/24 00:44 Primary care physician: Kat Heller MD Consults: 03/16/24 00:46 Consult to Orthopedics Routine Consulting Provider: Rayo Watkins Reason for consultation: Hip fracture Has provider been notified: Yes 03/16/24 02:51 Consult to Cardiology Routine Consulting Provider: [facility] Cardiovascular Services Reason for consultation: Clearance for surgery: left hip fracture. Has provider been notified: No 03/29/24 14:41 Consult to Psychiatry Routine Consulting Provider: Psych Covering Reason for consultation: medication advice, family request, over-sedated, delerium 03/30/24 06:06 Consult to Cardiology Routine Consulting Provider: [facility] Cardiovascular Services Reason for consultation: sinua pause, bradycardia Has provider been notified: Yes DS: Diagnosis Discharge Diagnosis (1) Atrial fibrillation with rapid ventricular response: Status: Acute (2) Toxic metabolic encephalopathy: Status: Acute (3) Acute hypernatremia: Status: Acute (4) Aspiration pneumonia: Status: Acute DS: Summary Hospital Course Hospital Course: from initial hpi: 88 years old woman with past medical history significant for atrial fibrillation on chronic anticoagulation with Eliquis, dementia, essential hypertension and HFrEF (30-35%) was brought to the emergency department via EMS from [facility] after she sustained a fall. It seems like the patient fell this morning after standing in bathroom to pull up pants. According to ED triage note patient is confused at baseline due to dementia. Patient was unable to provide a reliable HPI due to underlying significant dementia. In the ED the patient was found to have to have stable vital signs. Last blood pressure is 171/82. Blood workup is remarkable for leukocytosis of 12.2. Hemoglobin and platelets are normal. There are no significant electrolyte imbalances. BUN is 28 and creatinine 0.88. LFTs are normal. INR is 1.3. UA showed no evidence of urinary tract infection. CXR is negative. Hip and pelvic x-ray showed displaced left femoral neck fracture. According to ED provider case has been discussed with orthopedic service. hospital course: Patient was admitted for mechanical fall complicated by left femoral neck fracture. She underwent left hip hemiarthroplasty on 03/18/2024. Postoperative period was complicated by acute hypoxic respiratory failure and acute metabolic encephalopathy secondary to acute on chronic systolic CHF and acute aspiration pneumonia. She received 7 days of IV Zosyn, worked with speech therapy recommended pureed solids and honey thick liquids. She did receive some IV Lasix and is now back on maintenance as needed. She was weaned down to room air. Mental status is now back to baseline dementia. Course complicated by chronic atrial fibrillation with both rapid ventricular response and slow v entricular response. Was continued on metoprolol and memantine has been discontinued. Patient had acute hypokalemia which was replaced. Acute hypernatremia which resolved. Patient will be discharged to [facility] facility for short-term rehab. Time Attestation Discharge Coordination Time (in mins): 35 Quality: Safe Use of Opioids Does Pt have an Active Cancer Diagnosis on the Problem List?: No Quality: Stroke Does the patient have a stroke diagnosis?: No Physical Exam Vital Signs: Vital Signs: Last Vital Signs Temp 97.7 F 03/31/24 07:39 Pulse 104 H 03/31/24 07:58 Resp 18 03/31/24 07:39 BP 159/84 H 03/31/24 07:58 Pulse Ox 95 03/31/24 07:39 O2 Del Method Room Air 03/31/24 07:39 O2 Flow Rate 4 03/25/24 03:34 FiO2 60 03/23/24 04:00 Oxygen Flow Rate 2 03/15/24 21:10 BMI result Body Mass Index 24.4 Const: General: cooperative, healthy appearing and no acute distress Resp: Effort & Inspection: normal respiratory effort and able to speak in complete sentences Cardio: Rate: regular rate Peripheral pulses: Peripheral pulses 2+ throughout GI: Palpation (GI): Soft to palpation Skin: Lesions: no lesions Rashes: no rashes Extrem: Other: Left hip Aquacel does have mild staining. [place] removed no surrounding erythema or drainage. No signes of infection. Left lower extremity able to dorsiflex and plantar flex sensation is intact pedal pulse intact. DS: Data Data Completed and Pending Completed studies during hospitalization [Text1]: Pending at discharge 03/18/24 14:37 Surgical [PTH] Routine Labs on day of discharge: Laboratory Results - last 24 hr 03/31/24 07:08 WBC 13.2 H RBC 3.33 L Hgb 10.2 L Hct 30.6 L MCV 91.9 MCH 30.6 MCHC 33.3 RDW 14.7 Plt Count 547 H MPV 10.4 Absolute Nucleated RBC 0.000 Nucleated RBC % (auto) 0.0 Sodium 144 Potassium 2.8 L* Chloride 108 Carbon Dioxide 26 Anion Gap 13 BUN 11 Creatinine 0.45 L Estim Creat Clear Calc 84.0 Estimated GFR > 60 Fasting Glucose 87 Calcium 8.4 Magnesium 1.9 Vitamin B12 1012 H Folate 4.4 TSH 3.98 Discharge Plan Discharge Anticipated Discharge Date/Time: 03/20/24 09:09 Patient Disposition: Xfer [facility] Discharge Diagnosis: left femoral neck fracture Referrals: Day [facility] [Outside] - 1 Day (short term rehab) Rayo Watkins MD [Physician] - 1 Week (April 01 at 1130 with BIANCA Wheeler) Physician,Unknown J [Physician] - 1 Week Discharge Medications: New amlodipine 2.5 mg Tablet 2.5 mg PO DAILY Qty: 0 0RF Protocol: Hold for SBP< HOLD for SBP < : 90 Continued Eliquis 2.5 mg tablet 2.5 mg PO BID divalproex 125 mg capsule, delayed rel sprinkle 125 mg PO TID fluoxetine 20 mg tablet 20 mg PO DAILY furosemide 40 mg tablet 40 mg PO DAILY PRN (Reason: Edema) memantine 5 mg tablet 5 mg PO DAILY olanzapine 5 mg tablet 7.5 mg PO BEDTIME metoprolol succinate 25 mg tablet extended release 24 hr 12.5 mg PO DAILY mirtazapine 15 mg tablet 7.5 mg PO BEDTIME potassium chloride 20 mEq tablet,ER particles/crystals 20 meq PO BID irbesartan 300 mg tablet 300 mg PO DAILY Discharge Orders: Discharge Order (Routine); Ordered 03/31/24 Ordered By: Tre Goncalves Diet: pureed, honey thick liq Activity on Discharge: As tolerated Stand Alone Forms: Patient Portal Discharge page Print Language: Bulgarian Activity Restrictions/Additional Instructions: Physical Therapy for total hip arthroplasty: posterior precautions, gait training, ROM, strength Limit stair climbing abduction pillow while in bed able to shower Steri-strips may come off in 1 week, okay if they fall off before 1 week Continue anticoagulant x 6 weeks Follow up with [facility] Orthopedics in 4 weeks Care Plan Goals: recovery Health Concerns: left femoral neck fracture Plan of Treatment: rehab, follow up with orthopedics Assessment: see above
[2024-03-31] MEDS: bisacodyL 10 MG SUPP.RECT PR (11:31)
[2024-03-31 15:03] VITALS: BP 122/75; PULSE 70; RESP 18; TEMP 35.6; O2SAT 94
--- NOTE | 2024-03-31 15:14 | PC.NURSE ---
RN to RN report given to Marandabedford Tatyana at 15:10
== END 2024-03-31 17:33 | disposition skilled nursing facility (03) | DRG 521 ==
LOC: HO.ED 03-16 00:03 → HO.EDOVER 03-16 04:18 → HO.S3 03-17 01:07 → HO.IMC 03-21 17:57
PROVIDERS: Clinical Nurse Specialist Psychiatric/Mental Health, Adult; Nurse Practitioner Acute Care; Nurse Practitioner Family; Orthopaedic Surgery; Physician Assistant; Student in an Organized Health Care Education/Training Program; Admitting Provider Internal Medicine; Emergency Provider Student in an Organized Health Care Education/Training Program; PCP Internal Medicine; Visit Provider Internal Medicine
PROC: 0SRS0JA Replacement of Left Hip Joint, Femoral Surface with Synthetic Substitute, Uncemented, Open Approach (ICD-10-PCS; CPT 27125; principal; 2024-03-18 13:00)
DX: S72.002A Fracture of unspecified part of neck of left femur, initial encounter for closed fracture (principal); G92.8 Other toxic encephalopathy; I50.23 Acute on chronic systolic (congestive) heart failure; J96.01 Acute respiratory failure with hypoxia; J69.0 Pneumonitis due to inhalation of food and vomit; I48.20 Chronic atrial fibrillation, unspecified; F05 Delirium due to known physiological condition; E87.0 Hyperosmolality and hypernatremia; E87.6 Hypokalemia; I11.0 Hypertensive heart disease with heart failure; R00.1 Bradycardia, unspecified; I25.10 Atherosclerotic heart disease of native coronary artery without angina pectoris; I27.20 Pulmonary hypertension, unspecified; I34.0 Nonrheumatic mitral (valve) insufficiency; W19.XXXA Unspecified fall, initial encounter; J44.9 Chronic obstructive pulmonary disease, unspecified; F03.90 Unspecified dementia, unspecified severity, without behavioral disturbance, psychotic disturbance, mood disturbance, and anxiety; Z87.891 Personal history of nicotine dependence; Z91.040 Latex allergy status; Z79.01 Long term (current) use of anticoagulants; Z79.899 Other long term (current) drug therapy
CPT/HCPCS: 36415; 36600; 70450; 71045; 72125; 72170; 73030; 73502; 73552; 74018; 80048; 80053; 80076; 81001; 82040; 82140; 82607; 82746; 82803; 82947; 83540; 83605; 83735; 83880; 84100; 84132; 84443; 84484; 85025; 85027; 85610; 86850; 86900; 86901; 87040; 88305; 88311; 92526; 92610; 92950; 93005; 94640; 97110; 97112; 97140; 97162; 97166; 97530; 97535; 99285; C1758; C1776; C9113; J0131; J0295; J0690; J1920; J1940; J2060; J2270; J2359; J2405; J2598; J2704; J2795; J3010; J3480; J7120

== ENCOUNTER → 2024-03-15 21:16 | Outpatient (BNV) | payer MEDICARE, SELFPAY | PROVIDERS: Admitting Provider Internal Medicine; Emergency Provider Student in an Organized Health Care Education/Training Program; Visit Provider Internal Medicine Cardiovascular Disease | DX: R94.31 Abnormal electrocardiogram [ECG] [EKG] (principal) | CPT/HCPCS: 93010 ==

== ENCOUNTER 2024-03-16 00:44 | Outpatient (BNV) | payer MEDICARE, SELFPAY | END 2024-03-21 17:34 | PROVIDERS: Admitting Provider Internal Medicine; Emergency Provider Student in an Organized Health Care Education/Training Program; PCP Internal Medicine; Visit Provider Internal Medicine | DX: I48.91 Unspecified atrial fibrillation (principal); I49.3 Ventricular premature depolarization | CPT/HCPCS: 93010 ==

== ENCOUNTER → 2024-03-16 00:44 | Outpatient (BNV) | payer MEDICARE, SELFPAY | PROVIDERS: Admitting Provider Internal Medicine; Emergency Provider Student in an Organized Health Care Education/Training Program; Visit Provider Internal Medicine Cardiovascular Disease | DX: I48.11 Longstanding persistent atrial fibrillation (principal); Z01.810 Encounter for preprocedural cardiovascular examination | CPT/HCPCS: 99222 ==

== ENCOUNTER → 2024-03-16 00:44 | Outpatient (BNV) | payer MEDICARE, SELFPAY | PROVIDERS: Admitting Provider Internal Medicine; Emergency Provider Student in an Organized Health Care Education/Training Program; PCP Internal Medicine; Visit Provider Clinical Nurse Specialist Psychiatric/Mental Health, Adult | DX: F03.90 Unspecified dementia, unspecified severity, without behavioral disturbance, psychotic disturbance, mood disturbance, and anxiety (principal); G93.41 Metabolic encephalopathy | CPT/HCPCS: 99222 ==

== ENCOUNTER → 2024-03-16 00:44 | Outpatient (BNV) | payer MEDICARE, SELFPAY | PROVIDERS: Admitting Provider Internal Medicine; Emergency Provider Student in an Organized Health Care Education/Training Program; Visit Provider Physician Assistant | DX: I48.91 Unspecified atrial fibrillation (principal); G92.8 Other toxic encephalopathy; E87.0 Hyperosmolality and hypernatremia; J96.01 Acute respiratory failure with hypoxia; J69.0 Pneumonitis due to inhalation of food and vomit; Z79.01 Long term (current) use of anticoagulants; I48.20 Chronic atrial fibrillation, unspecified; S72.002A Fracture of unspecified part of neck of left femur, initial encounter for closed fracture; F03.90 Unspecified dementia, unspecified severity, without behavioral disturbance, psychotic disturbance, mood disturbance, and anxiety | CPT/HCPCS: 27236; 99024; 99222 ==

== ENCOUNTER → 2024-03-16 00:44 | Outpatient (BNV) | payer MEDICARE, SELFPAY | PROVIDERS: Admitting Provider Internal Medicine; Emergency Provider Student in an Organized Health Care Education/Training Program; Visit Provider Internal Medicine | DX: I48.20 Chronic atrial fibrillation, unspecified (principal); J96.01 Acute respiratory failure with hypoxia; J69.0 Pneumonitis due to inhalation of food and vomit; G93.41 Metabolic encephalopathy; E87.0 Hyperosmolality and hypernatremia | CPT/HCPCS: 99223; 99232; 99233; 99239; 99499 ==

== ENCOUNTER 2024-04-14 11:40 | Emergency (ER) | payer MEDICARE, SELFPAY ==
--- NOTE | ~2024-04-14 | XR_ITS ---
EXAMINATION: XR CHEST CLINICAL INFORMATION: Dyspnea. COMPARISON: Chest radiograph dated 03/23/2024. TECHNIQUE: Frontal view of the chest was obtained. FINDINGS: Heart size remains stable. There is calcific atherosclerotic disease of the aorta. Again seen is prominence of the right hilum. The right lung appears clear. There is pleural thickening at the left lung base, similar to the prior study. No left-sided consolidation. No large pleural effusion. No pneumothorax. There are mild degenerative changes of the shoulders. XR/XR chest 1V IMPRESSION: Stable appearance of the heart and lungs compared with prior examination dated 03/23/2024. No consolidation.
[2024-04-14 11:49] VITALS: BP 105/89; BP 112/58; PULSE 80; PULSE 83; RESP 20; TEMP 34.6; O2SAT 93; BMI 21.8
--- NOTE | 2024-04-14 11:54 | ED.SOB ---
HPI - SOB/Dyspnea General Chief Complaint: Dyspnea Stated Complaint: SOB 92% RA FROM [facility] PER EMS Time Seen by Provider: 04/14/24 11:49 Source: patient, EMS and old records reviewed Mode of arrival: ambulatory Limitations: other (dementia) History of Present Illness ED Provider: ZEKE REID Narrative: 88 yo female PMH of dementia, HTN, PAF on eliquis, CHF with EF 30-35% at [facility] - just admitted here and DC on 03/31 s/p L femoral neck fracture s/p L hip hemiarthroplasty 03/18/24 developed acute hypoxic resp failure due to CHF and aspiration pneumonia - received 7 days of IV zosyn and IV lasix, weaned down to room air. Speech saw her recommened pureed solids and honey thick liquids. She comes back today with c/o worsening breathing, increased dyspnea, low 02 sat today in 80s at facility per EMS, on day 2 of azithromycin and augmentin for pneumonia, they are following diet per EMR. The patient herself states she has a terrible cough. MD elicited complaint: shortness of breath and cough Pertinent past history: congestive heart failure and pneumonia Onset (ago): day(s) (2) Context: recent illness Timing: progressively worsening Severity: moderate Exacerbating factors: lying flat, exertion and coughing Relieving factors: oxygen and upright position Known history of: congestive heart failure and aspiration pneumonia Associated symptoms: cough Treatment prior to arrival: oxygen and other (antibiotics) Related Data Home Medications ?Medication ?Instructions ?Recorded ?Confirmed apixaban 2.5 mg tablet (Eliquis) 2.5 mg PO BID 03/16/24 03/16/24 divalproex 125 mg capsule,delayed 125 mg PO TID 03/16/24 03/16/24 release sprinkle fluoxetine 20 mg tablet 20 mg PO DAILY 03/16/24 03/16/24 furosemide 40 mg tablet 40 mg PO DAILY PRN Edema 03/16/24 03/16/24 irbesartan 300 mg tablet 300 mg PO DAILY 03/16/24 03/16/24 memantine 5 mg tablet 5 mg PO DAILY 03/16/24 03/16/24 metoprolol succinate 25 mg 12.5 mg PO DAILY 03/16/24 03/16/24 tablet,extended release 24 hr mirtazapine 15 mg tablet 7.5 mg PO BEDTIME 03/16/24 03/16/24 olanzapine 5 mg tablet 7.5 mg PO BEDTIME 03/16/24 03/16/24 potassium chloride 20 mEq 20 meq PO BID 03/16/24 03/16/24 tablet,extended release(part/cryst) Previous Rx's ?Medication ?Instructions ?Recorded amlodipine 2.5 mg tablet 2.5 mg PO DAILY #0 tabs 03/31/24 Allergies Allergy/AdvReac Type Severity Reaction Status Date / Time ammonia [Ammonia] Allergy Severe BURNING Verified 04/14/24 11:53 SENSATION enalaprilat [From Vasotec] Allergy Severe CHOKING Verified 04/14/24 11:53 hydrochlorothiazide Allergy Severe CHOKING Verified 04/14/24 11:53 [From Hyzaar] FEELING losartan [From Cozaar] Allergy Severe CHOKING Verified 04/14/24 11:53 FEELING latex Allergy Intermediate Rash Verified 04/14/24 11:53 Review of Systems Review of Systems: ROS unable to be obtained due to altered mental status [facility] Past Medical History Source: old records reviewed Medical History Chronic anticoagulation Atrial fibrillation with rapid ventricular response COPD (chronic obstructive pulmonary disease) Dementia Essential hypertension Surgical History History of hysterectomy History of ear surgery Social History Social History Household Members: Other Comment: pt has sitter in room Patient Tobacco Use Status: Former Tobacco user Quit Date: 1989 Tobacco use type: Cigarette Years Smoked: 20 Advance Directives Date on File: 04/01/24 service: No Physical Exam Vital Signs: Vital Signs: Last Vital Signs Temp 94.2 F L 04/14/24 11:49 Pulse 64 04/14/24 12:44 Resp 16 04/14/24 12:44 BP 100/60 04/14/24 12:44 Pulse Ox 93 04/14/24 12:44 O2 Del Method Nasal Cannula 04/14/24 12:44 O2 Flow Rate 2 04/14/24 12:44 BMI result Body Mass Index 21.8 Appearance: Alert. confused. mild acute distress. Eyes: Pupils equal, round and reactive to light. ENT: Pharynx normal. Has coarse upper airway sounds Neck: Normal inspection. Neck supple. CVS: irregular heart rate and rhythm. Pulses normal. Respiratory: Mild respiratory distress - tachypnea and retractions. Breath sounds diminished with rales and coarse sounds both bases Abdomen: Soft and nontender. Skin: Skin warm and dry. pale skin color. Extremities: incision c/d/i left leg, left leg edema noted but compartments soft and compressible pulses intact Neuro: confused No motor deficit. No sensory deficit. Course Course Course Narrative: started on hospice medications waiting on case management and patient has had hospice consult - pending hear back from facility PRN meds for comfort, secretions, agitation ordered signed out to Dr. Sherwood pending CM input Medications Administered Generic Name Dose Route Start Last Admin Trade Name Freq PRN Reason Stop Dose Admin Lorazepam 0.5 mg 04/14/24 13:47 04/14/24 15:38 Lorazepam 2 Mg/Ml Vial IVPUSH 0.5 mg Q4H PRN Administration Myoclonic twitching/anxiety Morphine Sulfate 5 mg 04/14/24 15:32 04/14/24 15:46 Morphine Sulfate Oral Parvin 10 Mg/5 Ml Solution PO 5 mg Q3H PRN Administration Restlessness Scopolamine 1.5 mg 04/14/24 14:00 04/14/24 14:36 Scopolamine 1.5 Mg Patch.Td.3 TRANSDERMA 1.5 mg Q72H TERRELL Administration Discontinued Medications Generic Name Dose Route Start Last Admin Trade Name Freq PRN Reason Stop Dose Admin Piperacillin Sod/Tazobactam 50 mls @ 100 mls/hr 04/14/24 12:09 04/14/24 14:43 Sod 3.375 gm/ Sodium Chloride IV 04/14/24 12:38 Infused ONCE ONE Infusion Medical Decision Making Medical Decision Making [facility] Narrative: 88 yo female PMH of dementia, HTN, PAF on eliquis, CHF with EF 30-35% at [facility] just admitted and DC on 03/31 course complicated by CHF and aspiration pneumonia - received IV lasix and completed 7 days of IV zosyn here with c/o increased dyspnea, hypoxia at facility at this time will order labs, cultures, empiric zosyn, BNP, troponin, CXR and possible IV lasix. She is not hypoxic here 95% on RA but has very coarse lung sounds R > L and we did check her diet at facility she is following pureed and nectar thick. Differential Diagnosis Differential Diagnoses: The differential diagnosis associated with the presentation includes CHF, aspiration pneumonia, resp failure Admission/Observation Consideration of admission/observation: Escalation of care including admission/observation considered after discussion with family and patient's presentation they want to make patient DOCK GUARD they do not want further care they not her quality of life is terrible and she would not want any of this at this point. Her son who is HCP has signed DNR/DNI and DOCK GUARD paperwork CM to get involved, DOCK GUARD medications ordered. Lab Data [facility] Lab Attestation statement: I reviewed the patient's lab results. 04/14/24 12:31 04/14/24 12:31 Labs: Lab Results 04/14/24 04/14/24 04/14/24 Range/Units 12:19 12:31 12:32 WBC 11.9 H (4.8-10.8) X10*3/uL RBC 4.00 L D (4.20-5.50) X10*6/uL Hgb 12.0 (12.0-16.0) g/dl Hct 37.9 D (37.0-47.0) % MCV 94.8 (80.0-98.0) fL MCH 30.0 (27.0-33.0) pg MCHC 31.7 (31.0-35.0) g/dl RDW 15.2 (11.0-16.0) % Plt Count 382 D (160-400) X10*3/uL MPV 10.1 (9.4-12.3) fL Immature Gran % (Auto) 3.5 H (0.0-0.4) % Neut % (Auto) 78.2 H (45-73) % Lymph % (Auto) 11.5 L (20-40) % [place] % (Auto) 5.6 (2-11) % Eos % (Auto) 0.8 (0-4) % Baso % (Auto) 0.4 (0-2) % Lymph # (Auto) 1.4 (1.2-4.9) X10*3/uL [place] # (Auto) 0.7 (0.1-1.2) X10*3/uL Eos # (Auto) 0.1 (0.0-0.4) X10*3/uL Baso # (Auto) 0.1 (0.0-0.2) X10*3/uL Abs Immat Gran (auto) 0.42 H (0.00-0.03) X10*3/uL Absolute Neuts (auto) 9.3 H (2.0-8.3) x10*3/uL Absolute Nucleated RBC 0.000 (0.0-0.012) X10*3/uL Nucleated RBC % (auto) 0.0 (0.0-0.2) /100WBC VBG pH VBG pCO2 VBG pO2 VBG HCO3 VBG O2 Saturation VBG Base Excess Sodium 144 (135-145) mmol/L Potassium 4.3 (3.3-5.1) mmol/L Chloride 105 (96-108) mmol/L Carbon Dioxide 26 (22-29) mmol/L Anion Gap 17 (12-20) BUN 39 H (9-16) mg/dL Creatinine 0.94 (0.5-1.4) mg/dL Estim Creat Clear Calc 40.2 Estimated GFR 56 Random Glucose 120 H (60-115) mg/dL Lactic Acid 2.0 (0.5-2.0) mmol/L Calcium 9.8 D (8.4-10.2) mg/dL Magnesium 2.2 (1.6-2.6) mg/dL Total Bilirubin 0.4 (0.0-1.0) mg/dL Direct Bilirubin 0.2 (0.0-0.5) mg/dL AST 14 (5-31) U/L ALT 9 (0-31) U/L Alkaline Phosphatase 112 (39-117) U/L Troponin I High Sens 32.4 H (<3.5-17.0) ng/L B-Natriuretic Peptide 301 H (<100) pg/mL Total Protein 6.9 (6.5-8.0) g/dL Albumin 3.2 L (3.5-5.0) g/dL Lipase 33 (8-78) U/L Procalcitonin 0.06 ng/mL Valproic Acid 15.4 L (50.0-100.0) mcg/mL Influenza Type A (PCR) NEGATIVE (Negative) Influenza Type B (PCR) NEGATIVE (Negative) RSV RNA Qual (PCR) NEGATIVE (Negative) SARS-CoV-2 RNA (RT-PCR) NEGATIVE (Negative) 04/14/24 04/14/24 Range/Units 12:34 12:36 WBC (4.8-10.8) X10*3/uL RBC (4.20-5.50) X10*6/uL Hgb (12.0-16.0) g/dl Hct (37.0-47.0) % MCV (80.0-98.0) fL MCH (27.0-33.0) pg MCHC (31.0-35.0) g/dl RDW (11.0-16.0) % Plt Count (160-400) X10*3/uL MPV (9.4-12.3) fL Immature Gran % (Auto) (0.0-0.4) % Neut % (Auto) (45-73) % Lymph % (Auto) (20-40) % [place] % (Auto) (2-11) % Eos % (Auto) (0-4) % Baso % (Auto) (0-2) % Lymph # (Auto) (1.2-4.9) X10*3/uL [place] # (Auto) (0.1-1.2) X10*3/uL Eos # (Auto) (0.0-0.4) X10*3/uL Baso # (Auto) (0.0-0.2) X10*3/uL Abs Immat Gran (auto) (0.00-0.03) X10*3/uL Absolute Neuts (auto) (2.0-8.3) x10*3/uL Absolute Nucleated RBC (0.0-0.012) X10*3/uL Nucleated RBC % (auto) (0.0-0.2) /100WBC VBG pH Cancelled 7.36 VBG pCO2 Cancelled 44 VBG pO2 Cancelled 49 VBG HCO3 Cancelled 25 VBG O2 Saturation Cancelled 80.0 VBG Base Excess Cancelled 0.1 Sodium (135-145) mmol/L Potassium (3.3-5.1) mmol/L Chloride (96-108) mmol/L Carbon Dioxide (22-29) mmol/L Anion Gap (12-20) BUN (9-16) mg/dL Creatinine (0.5-1.4) mg/dL Estim Creat Clear Calc Estimated GFR Random Glucose (60-115) mg/dL Lactic Acid (0.5-2.0) mmol/L Calcium (8.4-10.2) mg/dL Magnesium (1.6-2.6) mg/dL Total Bilirubin (0.0-1.0) mg/dL Direct Bilirubin (0.0-0.5) mg/dL AST (5-31) U/L ALT (0-31) U/L Alkaline Phosphatase (39-117) U/L Troponin I High Sens (<3.5-17.0) ng/L B-Natriuretic Peptide (<100) pg/mL Total Protein (6.5-8.0) g/dL Albumin (3.5-5.0) g/dL Lipase (8-78) U/L Procalcitonin ng/mL Valproic Acid (50.0-100.0) mcg/mL Influenza Type A (PCR) (Negative) Influenza Type B (PCR) (Negative) RSV RNA Qual (PCR) (Negative) SARS-CoV-2 RNA (RT-PCR) (Negative) Independent Interpretation I performed an independent interpretation of an: EKG and Plain X-Ray (mild edema but appears similar to prior) Interpretation: Rate: 86 Rhythm: afib Goldsmith: normal Normal QRS complex. ST T wave : no WILLY, flat t waves qTC: 464 prior studies: no sig change The study has been interpreted contemporaneously by me. . Radiology Impression Discussion of test interpretation with radiology: I have reviewed the radiologist's reading. Independent Historian Clinical information obtained from an independent historian. History obtained from or confirmed by: EMS and Other (son and daughter in law) External Record Review External record reviewed: Inpatient record Critical Care Time Critical Care Time Critical Care Time: Yes Total Critical Care Time: 60 Attestation: review of records, family discussions about end of life care, initial sepsis protocol I attest to this time spent taking care of the patient Discharge Plan Discharge Clinical Impression: Respiratory failure, Adult failure to thrive Patient Disposition: Still a Patient Instructions: Failure to Thrive in Older Adults (ED), Acute Respiratory Failure (ED) Prescriptions: No Action Eliquis 2.5 mg tablet 2.5 mg PO BID divalproex 125 mg capsule, delayed rel sprinkle 125 mg PO TID fluoxetine 20 mg tablet 20 mg PO DAILY furosemide 40 mg tablet 40 mg PO DAILY PRN (Reason: Edema) memantine 5 mg tablet 5 mg PO DAILY olanzapine 5 mg tablet 7.5 mg PO BEDTIME metoprolol succinate 25 mg tablet extended release 24 hr 12.5 mg PO DAILY mirtazapine 15 mg tablet 7.5 mg PO BEDTIME potassium chloride 20 mEq tablet,ER particles/crystals 20 meq PO BID irbesartan 300 mg tablet 300 mg PO DAILY amlodipine 2.5 mg Tablet 2.5 mg PO DAILY Qty: 0 0RF Protocol: Hold for SBP< HOLD for SBP < : 90 Print Language: Kinyarwanda
--- NOTE | 2024-04-14 12:02 | ECG_ITS ---
Test Reason : SOB Blood Pressure : / mmHG Vent. Rate : 086 BPM Atrial Rate : 000 BPM P-R Int : 000 ms QRS Dur : 084 ms QT Int : 388 ms P-R-T Axes : 000 012 126 degrees QTc Int : 464 ms Atrial fibrillation Nonspecific ST and T wave abnormality Abnormal ECG When compared with ECG of 21-MAR-2024 22:13, Vent. rate has decreased BY [address] no longer depressed in Lateral leads Nonspecific T wave abnormality has replaced inverted T waves in Lateral leads Referred By: Alexandria Russ Electronically Signed By:Irineo Lennon
[2024-04-14 12:38] LABS: MANUAL DIFF FLAG NO
[2024-04-14] MEDS: Piperacillin Sodium/Tazobactam 3.375 GM in 0.9 % Sodium Chloride 50 ML IV (12:38)
[2024-04-14 12:40] LABS: Basophils Absolute Auto 0.1 X10*3/uL (0.0-0.2); Basophils Percent Auto 0.4 % (0-2); Eosinophils Absolute Auto 0.1 X10*3/uL (0.0-0.4); Eosinophils Percent Auto 0.8 % (0-4); Hematocrit 37.9 % (37.0-47.0); Imm Gran Abs Auto 0.42 X10*3/uL (0.00-0.03); Imm Gran Pct Auto 3.5 % (0.0-0.4); Lymphocytes Absolute Auto 1.4 X10*3/uL (1.2-4.9); Lymphocytes Percent Auto 11.5 % (20-40); Mean Corpuscular HGB Conc 31.7 g/dl (31.0-35.0); Mean Corpuscular Volume 94.8 fL (80.0-98.0); Mean Platelet Volume 10.1 fL (9.4-12.3); Monocytes Absolute Auto 0.7 X10*3/uL (0.1-1.2); Monocytes Percent Auto 5.6 % (2-11); Neutrophils Absolute Auto 9.3 x10*3/uL (2.0-8.3); Neutrophils Percent Auto 78.2 % (45-73); Platelet Count 382 X10*3/uL (160-400); Red Cell Distribution Width 15.2 % (11.0-16.0); White Blood Count 11.9 X10*3/uL (4.8-10.8)
[2024-04-14 12:44] VITALS: BP 100/60; PULSE 64; RESP 16; O2SAT 93
[2024-04-14 12:44] LABS: VBG Base Excess 0.1 mmol/L; VBG HCO3 25 mmol/L (22-26); VBG pCO2 44 mmHg; VBG pH 7.36 (7.32-7.43); VBG pO2 49 mmHg
[2024-04-14 12:47] LABS: Venous Blood Gas Refer to POC result
--- NOTE | 2024-04-14 12:51 | PC.NURSE ---
ARRIVES FROM [facility] DEMENTIA UNIT. ON DAY 2 OF ZPACK AND BACTRIM FOR ASP PNE. HERE RECENTLY FOR CHF. WET LUNG SOUNDS, UNABLE TO COUGH SECRETIONS. BP WNL . +1 PITTING EDEMA IN BILAT LE'S. HYPOTHERMIC ON ARRIVAL, ROSEMARIE HUGGER IN PLACE. PT IS EASILY ROUSED BY VOICE STIM, THOUGH DROWSY. DENIES ANY PAIN. AFIB RATE OF 60S ON MONITOR. ABX RUNNNING THROUGH PIV #20 IN R HAND PLACED BY EMS. SHE IS A FULL CODE.
[2024-04-14 12:54] LABS: Valproate 15.4 mcg/mL (50.0-100.0)
[2024-04-14 13:02] LABS: Troponin-I High Sensitivity 32.4 ng/L (<3.5-17.0)
[2024-04-14 13:02] LABS: B Type Natriuretic Peptide 301 pg/mL (<100)
[2024-04-14 13:05] LABS: Alanine Aminotransferase 9 U/L (0-31); Albumin Level 3.2 g/dL (3.5-5.0); Alkaline Phosphatase 112 U/L (39-117); Anion Gap 17 (12-20); Aspartate Amino Transferase 14 U/L (5-31); Bilirubin Direct 0.2 mg/dL (0.0-0.5); Bilirubin Total 0.4 mg/dL (0.0-1.0); Blood Urea Nitrogen 39 mg/dL (9-16); Calcium 9.8 mg/dL (8.4-10.2); Carbon Dioxide 26 mmol/L (22-29); Chloride 105 mmol/L (96-108); Creatinine Clr Calc Pharmacy 40.2; Estimated Glomerular Filt Rate 56; Glucose Random 120 mg/dL (60-115); Lipase 33 U/L (8-78); Magnesium 2.2 mg/dL (1.6-2.6); Potassium 4.3 mmol/L (3.3-5.1); Sodium 144 mmol/L (135-145); Total Protein 6.9 g/dL (6.5-8.0)
[2024-04-14 13:16] LABS: Procalcitonin 0.06 ng/mL
[2024-04-14 13:18] LABS: Influenza A PCR NEGATIVE (Negative); Influenza B PCR NEGATIVE (Negative); Resp Syncy Virus RNA Qual PCR NEGATIVE (Negative); SARS COV2 PCR INHOUSE NEGATIVE (Negative)
--- NOTE | 2024-04-14 14:10 | MHC.CM.ED ---
Addendum entered by Stella Goodman 04/14/24 15:10: Per [facility], [facility]. [facility] does not have a private bed. Marvin made aware via telephone at [phone]. Marvin is requesting to see if a bed is available to at [facility]. [facility] Original Note: Received case management consult from Dr Russ. Patient was at [facility]. Admitted to [facility] and d/c'd to [facility] on 03/31. Patient returned to ER due to shortness of breath. Patient's son, Marvin, has decided to make patient WINDSCREEN FITTER. Met with patient, son Marvin and [id number] Elayne in regards to discharge planning. Marvin originally didn't want patient to return to [facility] because he feels the room is too small for 2 people. Marvin would be agreeable to returning to [facility] if private room is available. Marvin and Elayne aware [facility] referral will be made so that a bedside informational hospice meeting can be arranged. Referral made to [facility] and [facility]. Continue to monitor for d/c needs.
[2024-04-14] MEDS: Scopolamine 1.5 MG PATCH.TD.3 TRANSDERMA (14:36)
--- NOTE | 2024-04-14 14:36 | PC.NURSE ---
DNR, DNI SIGNED, RIDES SUPERVISOR MEASURES INSTITUTED. PT APPEARS MORE SOMNOLENT NOW, NOT RESPONDING TO STIMULI. HAS BECOME HYPOTENSIVE, BRADYCARDIC. FAMILY HAS LEFT THE BEDSIDE FOR NOW, SON PANCHO.
[2024-04-14] MEDS: LORazepam 2 MG/ML VIAL 0.5 MG IVPUSH (15:38)
[2024-04-14] MEDS: Morphine Sulfate Oral Sol 10 MG/5 ML SOLUTION 5 MG PO (15:46)
[2024-04-14 15:55] VITALS: PULSE 92; RESP 20; TEMP 34.9
--- NOTE | 2024-04-14 16:49 | MHC.CM.ED ---
Addendum entered by Pinky Steel 04/14/24 22:38: [facility], [facility]. Hospice aware of family request for additional referrals with private room. Original Note: [facility] has offered a bed. Family had informational meeting with hospice. Pt is DNR/DNI. CHUCK WAGON COOK measures. Spoke with HCP/son Marvin who is requesting that other facilities to referred to, as he would like a private room for his mother to spend her last days. CM explained that we may not be able to find a private room, but he is insistent that additional referrals be placed. CM will place referrals locally and request [facility] to follow.
--- NOTE | 2024-04-14 17:55 | PC.NURSE ---
pt has a healing surgical wound on L upper leg, bilateral wounds on heels, new dressings on from facility. pt moved to hospital bed for comfort. awaiting placement for hospice care. pt intermittently alert, agitated, now improved with prn rxs.
[2024-04-14 19:41] VITALS: BP 108/54; PULSE 71; RESP 12; TEMP 36.3; O2SAT 100
--- NOTE | 2024-04-14 19:57 | PC.NURSE ---
pt presents from [facility] dementia unit for SOB/cough. Sating wnl in ED. Was seen on 03/31 for L hip fx , left hip hemiathroplasty 03/18/24 and developed acute hypoxic resp failure due to CHF/ aspirational pnemonia ( treated). PMH: chf /pneumonia, dementia, afib with eliquis . Hospice started -morphone q 3 hours for restlesness. DNR/DNI. Family wants her to have a private room. Periwick in place.
[2024-04-14 21:27] VITALS: BP 100/64; PULSE 70; RESP 14; TEMP 36.8; O2SAT 100
--- NOTE | 2024-04-14 22:17 | PC.NURSE ---
john son call for update
[2024-04-15] MEDS: Morphine Sulfate Oral Sol 10 MG/5 ML SOLUTION 5 MG PO ×2 (01:19→05:01)
[2024-04-15 04:08] VITALS: BP 126/53; PULSE 79; RESP 18; TEMP 36; O2SAT 97
[2024-04-15 08:29] VITALS: PULSE 92; RESP 16; O2SAT 95
--- NOTE | 2024-04-15 08:33 | MHC.EDTECH ---
Repositioned patient, mouth care and jeff care complete. SG
--- NOTE | 2024-04-15 08:58 | MHC.CM.ED ---
Addendum entered by Stella Goodman 04/15/24 09:06: Received return telephone call from Marvin. [facility] choice. Facility made aware. Original Note: Patient remains in ER. At this time, [facility], [facility] and [facility] are able to offer private rooms. These options were discussed with Marvin. Marvin feels [place] is too far. He will talk with his about [facility] and [facility] and get back to . Continue to monitor for d/c needs.
[2024-04-15] MEDS: LORazepam 2 MG/ML VIAL 0.5 MG IVPUSH ×2 (12:16→18:52)
--- NOTE | 2024-04-15 12:29 | PC.NURSE ---
Assumed care of this patient at 1100, patient intermittently restless in bed, medicated per mar, no other acute issues at this time.
--- NOTE | 2024-04-15 12:34 | MHC.CM.ED ---
Patient remains in ER. Patient's son visiting. Per Marvin, payment should be all set by 2pm. [facility] made aware. Waiting to hear if transportation can be booked for 3pm. Continue to monitor for d/c needs.
--- NOTE | 2024-04-15 13:15 | PC.NURSE ---
Spoke to patient's previous residence [facility] nurse stating that patient can come back to their facility if referral is sent over to [facility]. Fax number [phone]. Liaison for screening, Tana Reed contact number [phone]. Will relay to case management once they arrive for afternoon.
[2024-04-15 14:18] VITALS: PULSE 70; O2SAT 98
--- NOTE | 2024-04-15 14:21 | PC.NURSE ---
Patient washed up, repositioned in bed, oral care completed, taken off radiation monitor, o2 monitor remains of patient's forehead.
--- NOTE | 2024-04-15 15:29 | MHC.CM.ED ---
Addendum entered by Pinky Steel 04/15/24 18:39: Received word from [facility] that they would not be able to see patient if she goes to [facility] until Thursday. CM missed call from Tana Reed at [facility]. Called back and left message. Have not received call back from Eter[facility] at [facility]. Will need to reach out to Marvin in the morning regarding 24/7 care arrangement and hospice. Pt to remain at [facility] until hospice can be arranged and 24/7 care verified. Addendum entered by Pinky Steel 04/15/24 16:39: Have not received return phone call from [facility]. Call to Marvin. He is in the process of arranging 24/7 care for his mother, probably beginning tomorrow 04/16 at [facility]. He is aware that CM has not been able to verify hospice at the facility. Will call [facility] at [facility] ([phone]). Message left. Faxed clinicals to [facility] at [phone]. Spoke with Lyndsey Marshall, Director regarding above and concerns about hospice for patient. Per MT, CM needs to confirm hospice for patient at the facility and is agreeable to transport to [facility] in the AM pending hospice. CM will need to speak with/tiger DOROTHY with plan, once verified. Addendum entered by Pinky Steel 04/15/24 15:50: CM did not receive call back form Tana Reed. CM called [facility] main number and left message for return call from Tana Reed. Original Note: [facility]. Family had meeting at facility. Facility is agreeable to patient having hospice there, but they are contracted with [facility]. Spoke with Marvin. He is working on having nursing help at [facility]. States he has spoken to [facility] and requested that hold until tomorrow so he can see if all arrangements can be made for patient to go to [facility], including nursing care and [facility]. Marvin does not want his mother to be in the hospital over the weekend and if arrangements cannot be made for [facility], then he will take [facility]. CM spoke with [facility]. They can see patient tomorrow at [facility]. Per Hospice, they will discharge patient if son chooses [facility]. Call to Tana Reed from [facility] ([phone]). Message left.
[2024-04-15 16:03] VITALS: PULSE 70; RESP 13; TEMP 35.7; O2SAT 95
--- NOTE | 2024-04-15 16:05 | MHC.EDTECH ---
THIS PCT ASSUMED CARE OF PATIENT AT 1500 ,VITALS TAKEN ,PATIENT WAS REPOSITION TO LEFT SIDE WITH PILLOWS UNDERNEATH BOTTOM ,PATIENT MOUTH WAS SWAB .RN AWARE OF PATIENT LOW TEMP .
--- NOTE | 2024-04-15 19:58 | PC.NURSE ---
PT RESTING COMFORTABLY, RESP EVEN AND UNLABORED. PT PLACED ON HEART MONITOR HOWEVER MONITOR PLACED ON PRIVACY SETTINGS. PT IS IN A HOSPITAL BED. BED ALARM ON.
--- NOTE | 2024-04-15 21:51 | PC.NURSE ---
PT APPEARS RESTLESS IN BED. WILL GIVE PRN PER MAR AND REASSESS. RESP EVEN AND UNLABORED. PT REMAINS ON MONITOR 84 BPM.
[2024-04-15 21:52] VITALS: PULSE 84; RESP 13
--- NOTE | 2024-04-15 22:05 | PC.NURSE ---
Addendum entered by Apple Aquino 04/16/24 01:54: [id number] - pt resting comfortably after prn. Original Note: UNABLE TO ADMINISTER IV ATIVAN AT THIS TIME D/T Q4H ORDER, LAST GIVEN 1851. CONSULTED WITH ARPAN HYDE PRN MORPHINE IS PO; TO ORDER IV MORPHINE 1MG DOSE, WILL REASSESS.
[2024-04-15 22:12] VITALS: RESP 15
[2024-04-15] MEDS: Morphine Sulfate 2 MG/ML CARTRIDGE 1 MG IVPUSH (22:12)
[2024-04-16] VITALS (7 sets, daily range): PULSE 69–98; RESP 13–20; O2SAT 76–92
--- NOTE | 2024-04-16 01:54 | PC.NURSE ---
Addendum entered by Apple Aquino 04/16/24 02:08: bedding/gown changed, jeff care provided. warm blankets given. Original Note: pt appears restless in bed, flailing arms. pt repositioned. prn given per mar.
[2024-04-16] MEDS: LORazepam 2 MG/ML VIAL 0.5 MG IVPUSH ×4 (01:55→16:07)
--- NOTE | 2024-04-16 05:52 | PC.NURSE ---
pt appears restless in bed, shifting around. will medicated with prn.
--- NOTE | 2024-04-16 10:14 | PC.NURSE ---
Pt noted to have increase in twitching in hands. Medicated per MAR with Ativan.
--- NOTE | 2024-04-16 15:15 | MHC.CM.ED ---
Patient remains in ER. Spoke with Nolvia of [facility].Their nurse will be on-site sometime today to assess patient. Spoke with Marvin. He has been able to arrange 15/06 care. Continue to monitor for d/c needs.
--- NOTE | 2024-04-16 16:33 | PC.NURSE ---
Pt medicated with PRN ativan for restlessness/ shaking of hands. Positive effect noted, pt more calm. Breathing unlabored. Pt remains using purewick, 200 mL of urine output today so far
--- NOTE | 2024-04-16 16:47 | PC.NURSE ---
Tana from [facility] called. Asked that meds be sent to her pharmacy for d/c so they have enough until the hospice meds are set up. Also would like a call if pt needs O2 therapy so they can set it up. Plan to d/c pt to assisted living for hospice tomorrow.
[2024-04-16] MEDS: Morphine Sulfate Oral Sol 10 MG/5 ML SOLUTION 5 MG PO (16:57)
--- NOTE | 2024-04-16 19:08 | PC.NURSE ---
this RN assumed care of pt,. pt resting in hospital bed at this time, no acute distress noted. pt noted ot have dry lips, oral care provided with swabs at this time. pt continues on project controls specialist on privacy setting, visible at nurses station, normal sinus on tele 80-84bpm.
--- NOTE | 2024-04-16 21:01 | PC.NURSE ---
pt repositioned to left side, pt dry at this time. pure wick in place. pt mouth swabbed and face washed for comfort.
--- NOTE | 2024-04-16 21:13 | PC.NURSE ---
pt o2 sat noted to be 76% on room air, aware, orders for 2L nasal cannula for pt comfort.
[2024-04-17 06:00] VITALS: PULSE 85; RESP 12; O2SAT 93
--- NOTE | 2024-04-17 06:23 | PC.NURSE ---
pt repositioned to right side at this time, pt mouth swabbed for comfort.
--- NOTE | 2024-04-17 07:20 | PC.NURSE ---
this RN resumed care of pt at this time. pt currently resting in room w/ lights dimmed in no apparent distress. sinus tachy on the radiation monitor. pt remains on 2L via NC. no sob/wob noted. respirations shallow. pt sitting in semi fowlers position to promote patent airway. per CM notes - pt is scheduled to go to the [facility] in [place] this morning and transition to a room for hospice/STILL WORKER HELPER. STILL WORKER HELPER measures in place at [facility] at this time. plan of care ongoing.
--- NOTE | 2024-04-17 08:19 | MHC.CM.ED ---
Patient remains in ER. [place] [facility] [facility]. Hospice medication Rx will need to be provided to son so he can fill them before she arrives at facility. Spoke with patient's son, Bernardo, via telephone at [phone]. Bernardo is getting ready and will be in the ER soon. He is aware he will need to get the prescriptions filled. He will also let the private pay 15/06 care know. Twila PRUETT booked for 11am. Patient, Bernardo, Fauzia Gonzalez RN, Keila MOORE and Nata HYDE aware.
[2024-04-17 11:30] VITALS: PULSE 89; RESP 10
--- NOTE | 2024-04-17 11:30 | PC.NURSE ---
report given to megan PRUETT at this time.
--- NOTE | 2024-04-17 11:48 | PC.NURSE ---
report given to OSCAR barbosa at [facility] at this time.
[2024-04-17 11:49] VITALS: BP 126/53; PULSE 89; RESP 10; TEMP 35.7; O2SAT 93
== END 2024-04-17 11:50 | disposition still patient (30) ==
PROVIDERS: Emergency Medicine; Emergency Provider Emergency Medicine Emergency Medical Services; PCP Emergency Medicine
DX: J69.0 Pneumonitis due to inhalation of food and vomit (principal); J96.90 Respiratory failure, unspecified, unspecified whether with hypoxia or hypercapnia; I11.0 Hypertensive heart disease with heart failure; I50.9 Heart failure, unspecified; I48.0 Paroxysmal atrial fibrillation; Z79.01 Long term (current) use of anticoagulants; Z03.818 Encounter for observation for suspected exposure to other biological agents ruled out; F03.90 Unspecified dementia, unspecified severity, without behavioral disturbance, psychotic disturbance, mood disturbance, and anxiety; Z79.899 Other long term (current) drug therapy; Z51.5 Encounter for palliative care
CPT/HCPCS: 0241U; 36415; 71045; 80048; 80076; 80164; 82803; 83605; 83690; 83735; 83880; 84145; 84484; 85025; 87040; 93005; 96365; 96366; 96375; 99285; J2060; J2270; J2543

== ENCOUNTER → 2024-04-14 12:02 | Outpatient (BNV) | payer MEDICARE, SELFPAY | PROVIDERS: Emergency Provider Emergency Medicine; PCP Emergency Medicine; Visit Provider Internal Medicine Cardiovascular Disease | DX: R94.31 Abnormal electrocardiogram [ECG] [EKG] (principal) | CPT/HCPCS: 93010 ==